=== PATIENT | male | born 1955 | race Caucasian/White ===

== ENCOUNTER 2017-03-08 17:03 | Inpatient (IN) ==
[2017-03-08 17:29] LABS: MANUAL DIFF NEEDED? NO
[2017-03-08 17:32] LABS: BASO% 0.4 % (0.0-0.8); EOS# 0.16 X1000 (0.0-0.7); EOS% 1.3 % (0.0-10.0); HEMATOCRIT 37.4 % (42.0-52.0); HEMOGLOBIN 12.1 g/dL (14.0-18.0); IMM GRAN# 0.04 X1000 (0.0-0.04); IMM GRAN% 0.3 % (0.0-0.5); LYMPH% 8.8 % (20.5-51.1); MCH 27.1 PG (27-31); MCHC 32.4 g/dL (33-37); MCV 83.9 FL (81-99); MONO# 0.89 X1000 (0.11-0.59); MONO% 7.1 % (1.7-9.3); MPV 11.5 FL (7.4-10.4); NEUT% 82.1 % (42.2-75.2); PLT 294 X1000 (130-400); RBC 4.46 XMIL (4.7-6.1)
[2017-03-08 17:39] LABS: INR 1.1; PROTIME 11.6 Seconds (9.2-11.7); PTT 29.7 Seconds (22.0-36.0)
--- NOTE | 2017-03-08 17:41 | PROVIDER DOCUMENTATION ---
HPI-General Adult - General Chief Complaint: Shortness of Breath Stated Complaint: SOB Time Seen by Provider: 03/08/17 17:27 Source: patient Allergies/Adverse Reactions: Patient Allergies Allergy/AdvReac Type Severity Reaction Status Date / Time No Known Allergies Allergy Verified 03/08/17 17:40 Home Medications: Home Medication List Medication Instructions Recorded Confirmed Last Taken Type Amiodarone [Cordarone] 1 tab PO DAILY 03/08/17 03/08/17 03/08/17 09:00 History Apixaban [Eliquis] 1 tab PO DAILY 03/08/17 03/08/17 03/08/17 09:00 History Aspirin [Ecotrin] 81 mg PO DAILY 03/08/17 03/08/17 03/08/17 09:00 History Carvedilol [Coreg] 1 tab PO BID 03/08/17 03/08/17 03/08/17 09:00 History Insulin Aspart Prot/Insuln Asp 03/08/17 Unknown History [Novolog Mix 70-30 Flexpen Syrn] Insulin Glargine [Lantus] 30 unit SUBQ DAILY 03/08/17 03/08/17 03/07/17 20:00 History Isosorbide Mononitrate E.r. [Imdur] 30 mg PO DAILY 03/08/17 03/08/17 03/08/17 09 :00 History Levothyroxine [Synthroid] 75 microgm PO DAILY 03/08/17 03/08/17 03/08/17 08:00 History Losartan Potassium [Cozaar] 25 mg PO DAILY 03/08/17 03/08/17 03/08/17 09:00 History Nitroglycerin [Nitrostat] 0.4 mg SL PRN PRN 03/08/17 03/08/17 Unknown History Pantoprazole [Protonix] 1 tab PO DAILY 03/08/17 03/08/17 03/08/17 09:00 History Sitagliptin Phosphate [Januvia] 100 mg PO DAILY 03/08/17 03/08/17 03/08/17 09: 00 History Torsemide 20 mg PO BID 03/08/17 03/08/17 03/08/17 09:00 History - History of Present Illness -Gen Adult Nature of Presenting Problems: Pt comes in with SOB over the last 3-4 days. He has CHF and COPD and has been having to sleep exclusively in his hospital bed. He feels like he has been wheezing but according to the EMS he was saturating well and during the ride he said he was feeling better . Review of Systems - Adult - REVIEW OF SYSTEMS - ADULT Constitutional: reports: no symptoms reported. denies: chills, fever, fatique, night sweats, weight gain Eyes: reports: no symptoms reported. denies: discharge, dry eyes, decreased vision, blurred vision, eye pain, redness Ears, Nose, Mouth & Throat: reports: no symptoms reported. denies: ear pain, epistaxis, sinus problem, nose pain, hoarseness, throat swelling Cardiovascular: reports: no symptoms reported. denies: chest pain, edema, orthopnea, palpitations, poor circulation, PND, syncope Respiratory: reports: see HPI, chronic cough, dyspnea on exertion, shortness of breath. denies: cough, excessive sputum production, hemoptysis, pleurisy Gastrointestinal: reports: no symptoms reported. denies: abdominal pain, hematemesis, constipation, diarrhea, difficulty swallowing, frequent heartburn, poor appetite, rectal bleeding, vomiting Genitourinary: reports: no symptoms reported. denies: dysuria, discharge, frequency, flank pain, hematuria, incontinence, urinary retention, urgency Musculoskeletal: reports: no symptoms reported. denies: bone pain, back pain, frequent leg cramps, joint pain, joint swelling, muscle weakness, neck pain Integumentary: reports: no symptoms reported. denies: hives, hair loss, itching , nail changes, rash, skin sores/ulcer, skin thickening Neurological: reports: no symptoms reported. denies: ataxia, dizziness/vertigo , headache/migraines, numbness, paresthesia, seizure, syncope, tremors Psychiatric: reports: no symptoms reported. denies: anxiety, anti-depressant use, alcohol/drug dependence, emotional problems, panic attacks, suicidal thoughts Endocrine: reports: no symptoms reported. denies: change in skin pigment, excessive sweating, cold intolerance, increased hunger, increased thirst Hematologic/Lymphatic: reports: no symptoms reported. denies: blood clots, easy bruising, prolonged bleeding, swollen lymph nodes, transfusions Allergic/Immunologic: reports: no symptoms reported. denies: allergic reactions , allergic rhinitis, asthma, eczema, frequent infections, hay fever, hives, positive PPD, urticaria All Other Systems: Reviewed and Negative Past History - Adult - PAST MEDICAL HISTORY-ADULT Review of Records: reports: Old Records Reviewed, Nursing Assessment Review, Medications Reviewed, Social history reviewed & non-contributory. Major Childhood Illnesses: reports: denies history Cardiovascular: reports: CAD, CHF, HTN, hyperlipidemia Respiratory: reports: sleep apnea Gastrointestinal: reports: GERD Obstetrical/Gynecological: reports: denies history Genitourinary: reports: denies history Musculoskeletal: reports: denies history Neurological: reports: denies history Endocrine/Immune: reports: Diabetes, thyroid disorder Other Conditions: reports: denies history - PRIOR SURGERIES/PROCEDURES Surgical/Procedure History: reports: CABG, tonsillectomy, other (vascular surgery bilateral legs) - IMMUNIZATION STATUS Childhood Immunizations: See Nurse Assessment Flu Vaccine: See Nurse Assessment - FAMILY HISTORY Family History: reviewed, not pertinent - SOCIAL HISTORY Smoking: quit greater than 1 year, cigarettes Substance Use: none/never Alcohol Use Frequency: never Living Situation: family Physical Exam-General - PHYSICAL EXAM-ADULT Initial Vital Signs Reviewed: Yes - CONSTITUTIONAL General Appearance: alert, no apparent distress - EYES Eyes: PERRL/EOMI, pink conjunctivae - HEAD, EARS, NOSE, MOUTH & THROAT HENMT: normocephalic/atraumatic, moist mucous membranes, normal ENT inspection - NECK Neck: non-tender, full range of motion - RESPIRATORY Respiratory: chest non-tender, lungs clear, no accessory muscle use, decreased breath sounds - CARDIOVASCULAR Cardiovascular: normal peripheral pulses, regular rate, rhythm, no gallop, no JVD, no murmur - GASTROINTESTINAL (ABDOMEN) Abdominal Exam: normal bowel sounds, non tender, soft - MUSCULOSKELETAL Back Exam: normal inspection Extremity: normal range of motion, non-tender, normal gait, no calf tenderness, pedal edema - SKIN Integumentary: normal color, normal turgor, warm/dry - NEUROLOGIC Neurologic: 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 nml as tested, grossly normal - PSYCHIATRIC Psych/Mental Status: normal mood/affect, normal thought content, normal thought process, oriented x 3 Progress - PLAN OF CARE/RESULTS Progress/Plan/Lab Results: Vital Signs - 8 hr 03/08/17 17:16 Temperature 97.7 F Pulse Rate 70 Respiratory Rate 20 Blood Pressure 133/63 O2 Sat by Pulse Oximetry 99 Orders Category Date Time Status Cardiac Monitoring DIRECTED Care 03/08/17 17:19 Active Saline Loc NOW Care 03/08/17 17:19 Active CHEST-2 VIEWS [RAD] Stat Exams 03/08/17 17:19 Ordered CBC WITH ELECTRONIC DIFF [HEME] Stat Lab 03/08/17 17:21 Ordered CK PROFILE [SP CHEM] Stat Lab 03/08/17 17:21 Ordered COMPREHENSIVE METABOLIC PANEL [CHEM] Stat Lab 03/08/17 17:21 Ordered D-DIMER [CHEM] Stat Lab 03/08/17 17:21 Ordered MAGNESIUM [CHEM] Stat Lab 03/08/17 17:21 Ordered PRO B-NATRIURETIC PEPTIDE Stat Lab 03/08/17 17:21 Ordered PROTIME WITH INR [COAG] Stat Lab 03/08/17 17:21 Ordered PTT [COAG] Stat Lab 03/08/17 17:21 Ordered TROPONIN T Stat Lab 03/08/17 17:21 Ordered EKG [EKG] Stat Ther 03/08/17 17:19 Ordered Result Diagrams: 03/08/17 17:14 03/08/17 17:14 - XRAY 1 XRAY Study: Chest XRAY Interpretation: right middle lobe infiltrate (hcb) Departure - Departure Date of Disposition Decision: 03/08/17 Time of Disposition Decision: 19:20 DIAGNOSIS: Shortness of breath Pneumonia Qualifiers: Pneumonia type: due to unspecified organism Laterality: right Lung location: middle lobe of lung Qualified Code(s): J18.1 - Lobar pneumonia, unspecified organism Disposition: ADMITTED INPATIENT 09 Certified Medical Emergency: Emergent Condition: Good Referrals and Follow-Ups: Manisha Peoples MD [Primary Care Provider] - - Critical Care Note This patient required my direct & personal management of CC.: No Attestation - Physician/ MARJAN Attestation Patient care was provided by Advanced Practice Provider:: Yes Advanced Practice Provider:: Thanh Garcia Advanced Practice Provider documentation review:: The Mid-level provider documentation, treatment plan and medical decision making was reviewed by the physician who agrees with all treatment and medical decision making by the MLP.
[2017-03-08 17:56] LABS: ALBUMIN 3.9 g/dL (3.5-5.0); CALCIUM 9.4 mg/dL (8.8-10.2); MAGNESIUM 2.4 mg/dL (1.5-2.7); POTASSIUM 5.7 mmol/L (3.5-5.1); TOTAL BILIRUBIN 0.52 mg/dL (0.20-1.00); TOTAL PROTEIN 7.3 g/dL (6.3-8.3)
--- NOTE | 2017-03-08 18:15 | Diag Imaging Result Doc PS360 ---
EXAM: CHEST-2 VIEWS HISTORY: CP TECHNIQUE: PA and lateral COMMENT: There is blunting of the post posterior costophrenic angles which may be slightly improved since 12/24/2016. There is atelectasis versus pneumonia present in the right middle lobe which was not the case on the previous study. The atelectasis previously present in the right lower lobe has improved. IMPRESSION: Atelectasis versus pneumonia right middle lobe. Electronically signed by Andres Max 03/08/2017 6:13 PM
[2017-03-08] MEDS ORDERED: ROCEPHIN 1 GM/NS 1 GM/50 ML IVPB IV ONE (18:23)
[2017-03-08] MEDS ORDERED: D50W SYRINGE IV ONE (18:28)
[2017-03-08] MEDS ORDERED: HUMULIN R IV ONE (18:28)
[2017-03-08] MEDS ORDERED: ALBUTEROL 0.5% INH CONC FOR HYPERKALEMIA INH ONE (18:29)
--- NOTE | 2017-03-08 21:30 | HISTORY AND PHYSICAL ---
PATIENT OF: Noe Peoples MD. REASON FOR ADMISSION: Shortness of breath for the last 4 days. HISTORY OF PRESENT ILLNESS: Mr. Darius Duong is a 62-year-old man with underlying ischemic cardiomyopathy, EF 30%, type 2 diabetes, atrial fibrillation, hypertension, hypothyroidism, and coronary artery disease. He comes in today complaining of progressively worsening shortness of breath for the last 4 days with associated orthopnea and PND. He denies any leg swelling or easy satiety. He denies any cough, fever, or chills. No chest pain or palpitations with this. He denies any change in his diet or use of any [id number] medications. On arrival to the ER, he was mildly hypoxic. He denies any change in his urinary habits, any gastrointestinal complaints. REVIEW OF SYSTEMS: Twelve system review is negative. Positive findings per HPI. Patient says when he noticed that his breathing was getting worse he doubled up on the dose of his diuretics without any significant relief. ALLERGIES: None. HOME MEDICATIONS: Amiodarone 200 mg daily, apixaban 5 mg daily, aspirin 81 mg daily, Coreg 12.5 mg b.i.d., he takes regular insulin per sliding scale, Lantus 30 units daily, Imdur 30 mg daily, levothyroxine 75 mcg daily, Cozaar 25 mg daily, nitroglycerin 0.4 p.r.n., Protonix 40 mg daily, sitagliptin 100 mg daily, torsemide 20 mg b.i.d. FAMILY HISTORY: Notable for the 1st degree relatives with coronary artery disease, type 2 diabetes. No cancer. SOCIAL HISTORY: Denies any smoking, drinking or illicit drugs. SURGICAL HISTORY: Tonsillectomy, CABG, aortobifemoral bypass, AICD placement, knuckle reconstructive surgery. PAST MEDICAL ISSUES: Kidney stones, peripheral artery disease. LABORATORY WORK: EKG was not reviewed by me. Pending at the time I saw him. Rest of other laboratory work, his chest film showed increased vascular markings bilaterally, blunting of the right costophrenic angle. Possible bilateral inferior infiltrates, worse on the right. White count 12,000, hemoglobin and hematocrit 12 and 37, platelets 294,000. Sodium was 134, potassium 5.7, bicarb 19, anion gap is 18, BUN is 51, creatinine is 1.8. His baseline creatinine is usually around 1.6, and BUN in the 40s. No major change there. Glucose 233, proBNP 2100, troponin 0.012 with CK of 78. D-dimer is 1.53. PT PTT normal. PHYSICAL EXAMINATION: VITAL SIGNS: Blood pressure is 142/60, heart rate 69, respirations 18, temperature is 97.7 degrees. He is 94% on room air. He is an overweight middle aged man who is in mild respiratory distress. He is alert and oriented x3 with normal mood and affect. HEENT: Head is normocephalic, atraumatic. Eyes IVY EOMI. He is anicteric, not pale. ENT and oropharyngeal exam grossly normal. No central cyanosis noted. NECK: Positive JVD and hepatojugular reflux. No bruit. No thyromegaly. CHEST: Decreased air entry in both lung hudson with scattered wheezes and bibasilar crepitations. CARDIOVASCULAR: First and second heart sounds heard. No gallops, murmurs, rubs. Rhythm is irregular. ABDOMEN: Protuberant, soft, nontender. No organomegaly. Bowel sounds are hypoactive. RECTAL: Deferred at this time. EXTREMITIES: The patient has 1+ pitting edema of both lower extremities. Diminished pulses in his lower extremities which are symmetrical compared to the distal pulses in the upper extremities. NEUROLOGIC: No focal deficits. SKIN: Intact. No breakdown lesions or erythema. MUSCULOSKELETAL: Grossly normal. ASSESSMENT: 1. Acute respiratory failure probably secondary to acute congestive heart failure exacerbation. Cannot rule out underlying pneumonia. 2. Acute systolic heart failure exacerbation. 3. Probable pneumonia. 4. Coronary artery disease. 5. Chronic kidney disease stage 3. 6. Type 2 diabetes with renal manifestations, uncontrolled. 7. Hyperkalemia, probably secondary to renal failure. Cannot rule out type 4 renal tubular acidosis. 8. Anemia of chronic inflammation. 9. Ischemic cardiomyopathy. EF 30%. 10. Reflux disease. 11. Hypothyroidism. 12. Atrial fibrillation. 13. Sleep apnea. 14. Peripheral arterial disease. PLAN: At this time, patient will be admitted for diuresis intravenously and give 2 doses of Lasix starting tonight and then resume torsemide tomorrow. Repeat chest film to see if there is any residual infiltrate. We will empirically start him on antibiotics pending the repeat chest film and the patient's clinical symptoms. Patient's D-dimer was elevated, but since he has per the Well's criteria, the patient has 2 other reasons for being hypoxemic and this makes it less likely. The patient's heart rate is not elevated. No antecedent risk factors. Also patient status has been on anticoagulation. DVT prophylaxis is not needed in this patient, already on Eliquis. Chronic kidney disease unchanged. Follow up chemistries in the morning to document resolution of hyperkalemia. The patient was given albuterol, insulin and he will be given Lasix. Hopefully this can correct this problem. And down the road patient will need to see a head of sales and marketing to manage his symptoms. cc: Vibha Fong MD
[2017-03-08] MEDS ORDERED: ZOFRAN IV PRN (21:54)
[2017-03-08] MEDS ORDERED: TYLENOL PO PRN (21:54)
[2017-03-08] MEDS ORDERED: NITROGLYCERIN SL PRN (21:54)
[2017-03-08 22:33] LABS: HEMOGLOBIN A1C 8.3 % (4.8-6.0)
[2017-03-08] MEDS: LASIX PO SCH (22:39)
[2017-03-08] MEDS: HUMALOG SUBQ SCH (22:39)
[2017-03-08] MEDS: ZITHROMAX PO SCH (22:39)
[2017-03-08] MEDS: COREG PO SCH (22:39)
[2017-03-08] MEDS: DUONEB (A & A) INH SCH ×2 (22:56→23:07)
[2017-03-09] MEDS: DUONEB (A & A) INH SCH ×4 (03:30→21:10)
[2017-03-09 05:08] LABS: MANUAL DIFF NEEDED? NO
--- NOTE | 2017-03-09 05:24 | EKG Report ---
Test Performed on : 03/08/2017 5:23:57 PM Test Reason : SOB Blood Pressure : / mmHG Vent. Rate : 071 BPM Atrial Rate : 075 BPM P-R Int : 000 ms QRS Dur : 104 ms QT Int : 452 ms P-R-T Axes : 000 011 177 degrees QTc Int : 491 ms Accelerated Junctional rhythm. Cannot rule out Inferior infarct , age undetermined ST \T\ T wave abnormality, consider lateral ischemia Abnormal ECG When compared with ECG of 08-MAR-2017 17:22, (Unconfirmed) ST no longer elevated in Lateral leads Confirmed by Earl SOLARES, Tan Briceño ([id number]) on 03/14/2017 8:25:20 AM
[2017-03-09 05:34] LABS: BASO% 0.3 % (0.0-0.8); EOS# 0.11 X1000 (0.0-0.7); HEMATOCRIT 35.8 % (42.0-52.0); HEMOGLOBIN 11.4 g/dL (14.0-18.0); IMM GRAN# 0.04 X1000 (0.0-0.04); IMM GRAN% 0.4 % (0.0-0.5); LYMPH# 1.07 X1000 (1.2-3.4); LYMPH% 9.5 % (20.5-51.1); MCHC 31.8 g/dL (33-37); MCV 84.6 FL (81-99); MONO# 0.69 X1000 (0.11-0.59); MONO% 6.1 % (1.7-9.3); MPV 11.4 FL (7.4-10.4); NEUT% 82.7 % (42.2-75.2); PLT 274 X1000 (130-400); RBC 4.23 XMIL (4.7-6.1)
[2017-03-09] MEDS: PROTONIX PO SCH (06:06)
[2017-03-09] MEDS: HUMALOG SUBQ SCH ×4 (06:06→20:24)
[2017-03-09 06:46] LABS: CALCIUM 9.1 mg/dL (8.8-10.2); POTASSIUM 3.9 mmol/L (3.5-5.1)
--- NOTE | 2017-03-09 09:08 | PROGRESS NOTE ---
DATE: 03/09/2017 Level 3 documentation. Reviewing the charts after admitted by hospitalist last night. SUBJECTIVE: Interval history was reviewed. Patient has an appointment to see me this afternoon. Complains of shortness of breath. No PND. No orthopnea. No swelling of the legs. The patient denies of any productive cough or fever. The symptoms started for the last 2 days. Came to the emergency room. Interval findings are reviewed. Past medical history, past surgical history, medicines were reviewed. PHYSICAL EXAMINATION: Vital Signs: Afebrile, pulse is 65, blood pressure is 125/58, 2 L nasal cannula 99%. Weight 200 pounds. Is and Os are -920 mL. HEENT Examination: Atraumatic, normocephalic. Pupils equal, react to light. Tongue is in midline. Neck: Supple. Chest: Bilateral air entry. No signs of pneumonitis. No crackles. Heart: Heart sounds are irregularly irregular. Abdomen: Belly is soft, nontender. Good bowel sounds. Obese. Extremities: No peripheral edema. No signs of gangrene noted. INVESTIGATIONS: clinical research monitor, in and out of atrial fibrillation. CBC: White cell count 11, hematocrit 35, platelets 274,000. D-dimer slightly positive. SMA 7: Sodium 140, potassium 3.9, chloride 100, BUN 44, creatinine 1.6, glucose 144, and calcium 9.1. Magnesium 2.4. LFTs were normal. Troponin is normal. ProBNP elevated at 2400. TSH is normal. Chest x-ray was reviewed by myself, possible right middle lobe atelectasis versus pneumonia. EKG: Junctional versus atrial fibrillation. ASSESSMENT AND PLAN: 1. Shortness of breath, right middle lobe atelectasis which is a new finding. Continue on intravenous antibiotics. Added incentive spirometry. 2. Ischemic cardiomyopathy. Coreg 12.5 by mouth twice a da, Lasix 60 mg by mouth 12, isosorbide 30 daily, Cozaar 25 daily. 3. Type 2 diabetes, on Lantus 30 units on sliding scale and Januvia. 4. Hypothyroidism, on Synthroid. 5. Gastrointestinal prophylaxis with Protonix. 6. Paroxysmal atrial fibrillation, on Cordarone. We will check the liver function tests, thyroid for surveillance. Add Eliquis 5 mg daily. 7. Chronic kidney disease, stable. We will repeat the labs in the morning. Discussed the findings with the patient. LEVEL OF DOCUMENTATION: 35 minutes. cc: Renzo Pepoles MD
--- NOTE | 2017-03-09 09:24 | Diag Imaging Result Doc PS360 ---
EXAM: CHEST-2 VIEWS INDICATION: Heart Failure TECHNIQUE: 2 views COMPARISON: 03/08/2017 FINDINGS: The right middle lobe infiltrate appears to have improved marginally. There is still blunting of the posterior costophrenic angles similar to the previous study. No new consolidations are appreciated. Cardiac silhouette is stable. IMPRESSION: Interval marginal improvement of infiltrate in the right middle lobe. Essentially stable, otherwise. Electronically signed by Matthew Shine 03/09/2017 9:22 AM
[2017-03-09] MEDS: LANTUS SUBQ SCH (09:49)
[2017-03-09] MEDS: SYNTHROID PO SCH (09:49)
[2017-03-09] MEDS: LASIX PO SCH (09:49)
[2017-03-09] MEDS: ASPIRIN EC PO SCH (09:49)
[2017-03-09] MEDS: ELIQUIS PO SCH (09:49)
[2017-03-09] MEDS: COREG PO SCH ×2 (09:49→20:24)
[2017-03-09] MEDS: COZAAR PO SCH (09:49)
[2017-03-09] MEDS: CORDARONE PO SCH (09:49)
[2017-03-09] MEDS: IMDUR PO SCH (09:52)
[2017-03-09] MEDS: ROCEPHIN 1 GM/NS 1 GM/50 ML IVPB IV SCH (17:01)
[2017-03-09] MEDS: ZITHROMAX PO SCH (20:24)
[2017-03-09] MEDS: DEMADEX PO SCH (20:24)
[2017-03-10] MEDS: DUONEB (A & A) INH SCH ×4 (03:35→21:45)
[2017-03-10 06:02] LABS: AGAP 16; ALBUMIN 3.2 g/dL (3.5-5.0); ALKALINE PHOSPHATASE 101 U/L (32-122); BUN 38 mg/dL (8-22); CALCIUM 8.7 mg/dL (8.8-10.2); CHLORIDE 103 mmol/L (98-107); COSMO 296; DIRECT BILIRUBIN < 0.20 mg/dL (0.00-0.20); GOT 13 U/L (10-34); GPT 16 U/L (10-44); POTASSIUM 3.8 mmol/L (3.5-5.1); SODIUM 142 mmol/L (136-145); TCO2 23 mmol/L (25-35); TOTAL BILIRUBIN 0.32 mg/dL (0.20-1.00); TOTAL PROTEIN 6.4 g/dL (6.3-8.3)
[2017-03-10] MEDS: PROTONIX PO SCH (06:09)
[2017-03-10] MEDS: HUMALOG SUBQ SCH ×4 (06:10→20:30)
[2017-03-10 06:12] LABS: FREE T4 1.53 ng/dL (0.93-1.70); HEMOGLOBIN A1C 8.1 % (4.8-6.0)
[2017-03-10] MEDS: COZAAR PO SCH (09:14)
[2017-03-10] MEDS: DEMADEX PO SCH ×2 (09:14→20:30)
[2017-03-10] MEDS: CORDARONE PO SCH (09:14)
[2017-03-10] MEDS: ELIQUIS PO SCH (09:15)
[2017-03-10] MEDS: SYNTHROID PO SCH (09:15)
[2017-03-10] MEDS: IMDUR PO SCH (09:15)
[2017-03-10] MEDS: COREG PO SCH ×2 (09:15→20:30)
[2017-03-10] MEDS: LANTUS SUBQ SCH (09:15)
[2017-03-10] MEDS: ASPIRIN EC PO SCH (09:15)
--- NOTE | 2017-03-10 09:21 | PROGRESS NOTE ---
DATE: 03/10/2017 SUBJECTIVE: Patient complains of shortness of breath last night. He is on oxygen. He is nonambulatory at this time. He denies of any fever, productive cough. I did review the x-ray showing some right middle lobe atelectasis versus mucous plugging on the lateral view. He has some wheezing. He is on bronchodilators. Rest of the review of systems are normal. OBJECTIVE: Vital Signs: On examination, he is afebrile. Vitals are stable. Weight 200 pounds. Input and output are -1200. HEENT: Exam within normal limits. Neck: Supple. Chest: Bilateral air entry. Some rhonchi and wheezing on the right side. Heart: Sounds are regular. Belly is soft, nontender. No peripheral edema. INVESTIGATIONS: On campus monitor, he is in sinus with first-degree AV block. SMA 7: Sodium 142, potassium 3.8, chloride 103, BUN 38, creatinine 1.5. LFTs were normal. White cell count 11. ASSESSMENT AND PLAN: 1. Right middle lobe atelectasis versus infiltrate. Continue on incentive spirometry, Zithromax and IV Rocephin. 2. Paroxysmal atrial fibrillation. Currently in sinus. On Cordarone. Follow up on surveillance is stable and with normal liver function tests and thyroid function tests. 3. Diabetes is controlled, 4. Plan of care: Incentive spirometry evaluation for home oxygen with a room air pulse oximetry on exertion. If he is stable, he will be discharged in the morning. LEVEL OF DOCUMENTATION: Twenty-five minutes. cc: Renzo Peoples MD
[2017-03-10] MEDS: ROCEPHIN 1 GM/NS 1 GM/50 ML IVPB IV SCH (17:28)
[2017-03-10] MEDS: ZITHROMAX PO SCH (20:30)
[2017-03-11] MEDS: DUONEB (A & A) INH SCH ×4 (03:32→21:13)
[2017-03-11] MEDS: HUMALOG SUBQ SCH ×4 (06:16→20:36)
[2017-03-11] MEDS: PROTONIX PO SCH (06:16)
[2017-03-11] MEDS: ELIQUIS PO SCH ×2 (08:46→20:37)
[2017-03-11] MEDS: IMDUR PO SCH (08:46)
[2017-03-11] MEDS: COZAAR PO SCH (08:46)
[2017-03-11] MEDS: DEMADEX PO SCH (08:46)
[2017-03-11] MEDS: COREG PO SCH ×2 (08:46→20:37)
[2017-03-11] MEDS: SYNTHROID PO SCH (08:46)
[2017-03-11] MEDS: CORDARONE PO SCH (08:47)
[2017-03-11] MEDS: ASPIRIN EC PO SCH (08:47)
[2017-03-11] MEDS: LANTUS SUBQ SCH (08:47)
--- NOTE | 2017-03-11 11:31 | Diag Imaging Result Doc PS360 ---
EXAM: CHEST-2 VIEWS HISTORY: SOB TECHNIQUE: COMPARISON: 03/09/2017 FINDINGS: Sternal wires are present and there is a left-sided pacemaker. The heart is not enlarged. There are small pleural effusions similar to the prior exam. Mild central vascular distention. This is similar to the prior study. No consolidation. IMPRESSION: Stable chest Electronically signed by Kuldip Talley 03/11/2017 11:28 AM
--- NOTE | 2017-03-11 12:31 | CONSULTATION ---
DATE OF CONSULTATION: 03/11/2017 REASON FOR CONSULTATION: Cardiology was consulted for heart failure. HISTORY OF PRESENT ILLNESS: Mr. Juan J Duong is a 62-year-old gentleman with known coronary artery disease, coronary artery bypass grafting, and LV dysfunction. For the last week or so, he has been having increasing shortness of breath with paroxysmal nocturnal dyspnea. Denies chest pain suggestive of angina. He was admitted and has received IV Lasix. He was in [facility] and underwent an AICD placement about 4-5 weeks back, has atrial fibrillation, and ablation is contemplated down the line by Dr. Nelson in Electrophysiology in [place]. There are no palpitations. There is no syncope. He is also attending the Heart Failure Clinic in [facility]. REVIEW OF SYSTEMS: A 14-point review of systems was done.Gastrointestinal: There is no history of nausea, vomiting, or diarrhea. There is no history of hemoptysis or melena. Central nervous system: No focal weakness to suggest a CVA or TIA. Genitourinary: There is no dysuria or hematuria. PAST MEDICAL HISTORY: 1. Congestive heart failure. 2. Atrial fibrillation. 3. AICD placement. 4. Hypertension. 5. Diabetes. 6. Coronary artery disease, status post coronary artery bypass grafting x2. He underwent coronary artery bypass grafting in 2000 and subsequently in 2000 he had YOUNG to the left anterior descending artery, saphenous vein graft to diagonal, saphenous vein graft to OM, and vein graft to PDA. In 2010, he had a repeat bypass with a vein graft to the PDA and vein graft to the obtuse marginal artery. 7. Tonsillectomy. 8. Orthopedic surgery. CURRENT MEDICATIONS: Aspirin 81 mg a day. Protonix 40. Levothyroxine 75. Januvia 100. Losartan 25. Isosorbide 30. Coreg 12.5 b.i.d. Eliquis 5 p.o. b.i.d. Insulin 30 units subcutaneously daily. Torsemide 20 b.i.d. Amiodarone 200. ALLERGIES: He is not known to be allergic to any medication. SOCIAL HISTORY: He does not smoke. There is no history of alcohol abuse. PHYSICAL EXAMINATION: Vital Signs: Blood pressure 104/44. Cardiovascular: Normal jugular venous pressure. First and second heart sounds heard. There was no S3 gallop. Respiratory System: Fine inspiratory bibasilar crepitations. Abdomen: Obese soft, nontender. There was no guarding or rigidity. Bowel sounds were heard. Central nervous system: Alert, oriented, and was moving all 4 extremities. Extremities: Examination of extremities revealed no pedal edema. ASSESSMENT AND PLAN: Mr. Juan J Duong is a 62-year-old gentleman with history of coronary artery bypass grafting x2, chronic atrial fibrillation status post AICD placement, diabetes, and hypertension, who was seen today, admitted with increasing shortness of breath, orthopnea, and paroxysmal nocturnal dyspnea. Patient is in heart failure. RECOMMENDATIONS: 1. We will change him to IV Lasix. Hold his torsemide. Lasix 40 mg twice a day. 2. Continue with his medications for diabetes. 3. He has had an AICD placement. 4. He has chronic atrial fibrillation. Ablation is contemplated down the line at [place]. In the interim, we will continue with his Eliquis and he is on amiodarone. I have not made any changes. 5. As far as his heart failure medications are concerned, he has left ventricular dysfunction, ejection fraction of 30% to 35%. We will put him on Entresto one tablet twice a day. Discontinue the Cozaar. In the past, he was on Entresto, which was discontinued when he was recently discharged. No known allergies to that medication. 6. We will also get a chest x-ray and a BMP in the morning, as planned. Thank you for the consult. We will follow hospital course. cc: MD Renzo Hayes MD
--- NOTE | 2017-03-11 12:42 | PROGRESS NOTE ---
DATE: 03/11/2017 Mr. Duong is admitted with uncontrolled diabetes. His blood sugar was 284. Blood cultures were negative. He has chronic atrial fibrillation and congestive heart failure. Last night he was short of breath. He has some nasal congestion. I am going to order blood tests as well as EKG and chest x-ray. We will also get a Cardiology consultation. He is usually followed by Dr. Luna. -8 cc: MD Renzo Albarran MD
[2017-03-11] MEDS: ROCEPHIN 1 GM/NS 1 GM/50 ML IVPB IV SCH (18:34)
[2017-03-11] MEDS: LASIX IV SCH (20:37)
[2017-03-11] MEDS: ENTRESTO 24 MG-26 MG TABLET PO SCH (20:37)
[2017-03-12] MEDS: DUONEB (A & A) INH SCH ×4 (03:03→21:44)
[2017-03-12 06:17] LABS: CALCIUM 8.8 mg/dL (8.8-10.2); POTASSIUM 3.7 mmol/L (3.5-5.1)
[2017-03-12] MEDS: PROTONIX PO SCH (06:31)
[2017-03-12] MEDS: HUMALOG SUBQ SCH ×4 (06:31→21:34)
[2017-03-12] MEDS: LASIX IV SCH ×2 (09:04→21:34)
[2017-03-12] MEDS: ASPIRIN EC PO SCH (09:05)
[2017-03-12] MEDS: IMDUR PO SCH (09:05)
[2017-03-12] MEDS: CORDARONE PO SCH (09:05)
[2017-03-12] MEDS: SYNTHROID PO SCH (09:05)
[2017-03-12] MEDS: LANTUS SUBQ SCH (09:05)
[2017-03-12] MEDS: COREG PO SCH ×2 (09:05→21:34)
[2017-03-12] MEDS: ENTRESTO 24 MG-26 MG TABLET PO SCH ×2 (09:05→21:34)
[2017-03-12] MEDS: ELIQUIS PO SCH ×2 (09:49→21:34)
--- NOTE | 2017-03-12 10:31 | Diag Imaging Result Doc PS360 ---
EXAM: CHEST-2 VIEWS HISTORY: hypoxia TECHNIQUE: COMPARISON: 03/11/2017 FINDINGS: There are sternal wires and a left-sided pacemaker. The lungs are well expanded. Heart is not enlarged. Mild central vascular prominence. This is questionably slightly less pronounced than on the prior exam. Tiny pleural effusions blunt the posterior gutters. No consolidation. IMPRESSION: Stable chest Electronically signed by Kuldip Talley 03/12/2017 10:29 AM
[2017-03-12] MEDS ORDERED: LASIX IV ONE (10:32)
[2017-03-12] MEDS ORDERED: LASIX IV SCH (11:00)
--- NOTE | 2017-03-12 11:31 | PROGRESS NOTE ---
DATE: 03/12/2017 Mr. Duong is still not feeling well. He still is short of breath. He says the Lasix is not helping him as much as he expected. He is getting IV Lasix now and he is getting 40 mg twice a day which should be helping him. Add Aldactazide today. Repeat the electrolytes in the morning. -6 cc: MD Renzo Albarran MD
[2017-03-12] MEDS: ALDACTAZIDE 25/25 PO SCH (12:35)
[2017-03-12] MEDS: ROCEPHIN 1 GM/NS 1 GM/50 ML IVPB IV SCH (18:31)
[2017-03-13 05:48] LABS: POTASSIUM 3.7 mmol/L (3.5-5.1)
--- NOTE | 2017-03-13 05:48 | EKG Report ---
Test Performed on : 03/11/2017 11:54:43 AM Test Reason : CP Blood Pressure : / mmHG Vent. Rate : 069 BPM Atrial Rate : 069 BPM P-R Int : 324 ms QRS Dur : 136 ms QT Int : 462 ms P-R-T Axes : 069 046 181 degrees QTc Int : 495 ms Sinus rhythm. with 1st degree AV block. Nonspecific intraventricular block T wave abnormality, consider lateral ischemia Abnormal ECG When compared with ECG of 08-MAR-2017 17:23, Sinus rhythm. has replaced Junctional rhythm. QRS duration has increased Inverted T waves have replaced nonspecific T wave abnormality in Lateral leads Confirmed by Earl SOLARES, Tan Briceño ([id number]) on 03/14/2017 8:26:03 AM
[2017-03-13] MEDS: PROTONIX PO SCH (06:25)
[2017-03-13] MEDS: HUMALOG SUBQ SCH ×4 (06:26→20:12)
[2017-03-13] MEDS: DUONEB (A & A) INH SCH ×4 (09:00→22:39)
[2017-03-13] MEDS: CORDARONE PO SCH (09:05)
[2017-03-13] MEDS: ELIQUIS PO SCH ×2 (09:05→20:12)
[2017-03-13] MEDS: COREG PO SCH ×2 (09:05→20:12)
[2017-03-13] MEDS: ENTRESTO 24 MG-26 MG TABLET PO SCH ×2 (09:05→20:12)
[2017-03-13] MEDS: SYNTHROID PO SCH (09:05)
[2017-03-13] MEDS: IMDUR PO SCH (09:05)
[2017-03-13] MEDS: ALDACTAZIDE 25/25 PO SCH (09:05)
[2017-03-13] MEDS: LANTUS SUBQ SCH (09:05)
[2017-03-13] MEDS: ASPIRIN EC PO SCH (09:05)
[2017-03-13] MEDS: LASIX IV SCH (09:10)
--- NOTE | 2017-03-13 09:47 | PROGRESS NOTE ---
DATE: 03/13/2017 SUBJECTIVE: Apparently interval history was reviewed. Continues with shortness of breath at rest, even minimal exertion. Patient was seen by Dr. Luna. He was given extra IV Lasix twice a day. Changed the Cozaar to Entresto. Blood pressure is running low. In the past he was unable to tolerate due to low blood pressure. Complains of dyspnea. No chest pain. No palpitations. REVIEW OF SYSTEMS: No GI symptoms. No symptoms. No swelling of feet. PAST MEDICAL HISTORY: Reviewed. PAST SURGICAL HISTORY: Reviewed. MEDICATIONS: Reviewed. PHYSICAL EXAMINATION: Vital signs: Afebrile at 97.5, pulse is 67, blood pressure 120/45. Weight 216 pounds. I's and O's -1.6, almost 4 L out. HEENT: Within normal limits. Neck: Supple. JVD is not elevated. Chest: Clear. Heart: Sounds are regular. No murmur. Abdomen: Belly is soft, obese, nontender. Good bowel sounds. Extremities: No peripheral edema or cyanosis. Neurologic: No obvious neurological deficits. INVESTIGATIONS: Sodium 139, potassium 3.7, BUN 34, creatinine 1.8, glucose 221. Cardiac enzymes are normal. Chest x-ray was improving. ASSESSMENT AND PLAN: 1. Shortness of breath. Follow up chest x-ray. Right middle lobe atelectasis improving. 2. Ischemic cardiomyopathy. EF 30%. Optimize the treatment with Entresto and Lasix. I am afraid he is going to get azotemia and low blood pressure. 3. The patient will qualify for home oxygen, 88% on exertion. 4. Paroxysmal atrial fibrillation. Currently in sinus on Cordarone and Eliquis. Waiting for ablation. PLAN: Plan of care today is orthostatic blood pressure and decrease IV Lasix once a day. Will discuss with the salesforce trainer. LEVEL OF DOCUMENTATION: 25 minute. cc: Renzo Peoples MD MTDD
[2017-03-13] MEDS: ROCEPHIN 1 GM/NS 1 GM/50 ML IVPB IV SCH (18:09)
[2017-03-14] MEDS: DUONEB (A & A) INH SCH ×3 (02:43→11:09)
[2017-03-14 04:59] LABS: MANUAL DIFF NEEDED? NO
[2017-03-14 05:05] LABS: BASO% 0.4 % (0.0-0.8); EOS# 0.19 X1000 (0.0-0.7); HEMATOCRIT 33.8 % (42.0-52.0); HEMOGLOBIN 10.8 g/dL (14.0-18.0); LYMPH# 1.23 X1000 (1.2-3.4); LYMPH% 12.9 % (20.5-51.1); MCH 26.7 PG (27-31); MCV 83.7 FL (81-99); MONO# 0.74 X1000 (0.11-0.59); MONO% 7.8 % (1.7-9.3); MPV 10.9 FL (7.4-10.4); NEUT% 76.9 % (42.2-75.2); PLT 273 X1000 (130-400); RBC 4.04 XMIL (4.7-6.1)
[2017-03-14 05:41] LABS: ALBUMIN 3.7 g/dL (3.5-5.0); CALCIUM 9.1 mg/dL (8.8-10.2); POTASSIUM 3.9 mmol/L (3.5-5.1); TOTAL BILIRUBIN 0.32 mg/dL (0.20-1.00); TOTAL PROTEIN 7.2 g/dL (6.3-8.3)
[2017-03-14] MEDS: HUMALOG SUBQ SCH ×2 (06:10→11:13)
[2017-03-14] MEDS: PROTONIX PO SCH (06:10)
[2017-03-14] MEDS ORDERED: INSULIN PEN NEEDLES ONE (07:51)
[2017-03-14] MEDS: IMDUR PO SCH (08:07)
[2017-03-14] MEDS: SYNTHROID PO SCH (08:07)
[2017-03-14] MEDS: ENTRESTO 24 MG-26 MG TABLET PO SCH (08:08)
[2017-03-14] MEDS: CORDARONE PO SCH (08:08)
[2017-03-14] MEDS: ALDACTAZIDE 25/25 PO SCH (08:08)
[2017-03-14] MEDS: LASIX IV SCH (08:08)
[2017-03-14] MEDS: ELIQUIS PO SCH (08:08)
[2017-03-14] MEDS: COREG PO SCH (08:08)
[2017-03-14] MEDS: ASPIRIN EC PO SCH (08:08)
[2017-03-14] MEDS: LANTUS SUBQ SCH (08:08)
[2017-03-14 12:34] VITALS: BP 94/46
--- NOTE | 2017-03-14 18:24 | DISCHARGE SUMMARY ---
ADMISSION DATE: 03/08/2017 DISCHARGE DATE: 03/14/2017 DISCHARGING DIAGNOSES: Shortness of breath due to combination of right middle lobe atelectasis and decompensated ischemic cardiomyopathy with systolic heart failure. Ejection fraction 30%. SECONDARY DIAGNOSES: 1. Paroxysmal atrial fibrillation. 2. Coronary artery disease status post bypass surgery x2. 3. Complicated diabetes. 4. Acid reflux disease. 5. Hypothyroidism. 6. Nonsustained ventricular tachycardia status post AICD by Dr. Nelson. 7. Peripheral arterial disease with status post aortobifemoral bypass surgery. 8. History of kidney stones. 9. History of right humeral fracture. CONSULTS: Technician Terminal And Repeater Dr. Luna. BRIEF HISTORY: Please see the H and P that was done by Dr. Fong. In brief he is a 61-year- old white gentleman with above problems admitted to the hospital basically for shortness of breath, even with minimal exertion. Chest x-ray showed new onset of a right middle lobe atelectasis versus pneumonia. HOSPITAL COURSE: He was given oxygen, incentive spirometry, IV antibiotics. Follow up chest x- ray, improved right middle lobe atelectasis. Decompensated heart failure. Elevated proBNP. Seen by Dr. Luna and he was given IV Lasix and discontinued Cozaar, started on Entresto. He was not able to tolerate Entresto in the past due to hypotension and azotemia. We will slowly increase the Entresto as an outpatient. He is also waiting for the BP study for intermittent atrial fibrillation by Dr. Nelson. Rest of the hospital course was uneventful and at the time of discharge, with minimal exertion pulse oximetry 88%. Arrangements were made for outpatient oxygen therapy. LABORATORIES: CBC: White cell count 9.5, hematocrit 33, platelets 273,000. SMA 7: Sodium 136, potassium 3.9, chloride 98, BUN 38, creatinine 1.6, glucose 275. Cardiac enzymes were normal. ProBNP 1670. A1c 8.1. Thyroid function tests were normal. DISCHARGE INSTRUCTIONS: Flu vaccine 2013. Pneumococcal vaccine 2015. Aspirin 81 mg daily. Protonix 40 daily. Synthroid 75 mcg daily. Januvia 100 daily. Isosorbide 30 mg daily. Coreg 12.5 p.o. b.i.d. Eliquis 1 tablet 5 mg b.i.d. Lantus 30 units subcutaneous daily. Nitrostat as needed. Demadex 20 p.o. once daily. Aldactazide 25/25 daily. Entresto 24/26 one tablet daily. Cordarone 200 daily. Follow up in my office in 10 days. cc: MD Alli Mohamud MD
== END 2017-03-14 13:40 | disposition home or self-care (01) ==
LOC: ED 17:03 → 3S 21:28 → SUATTDRO 21:28
PROVIDERS: ADMIT Internal Medicine; ATTEND Internal Medicine

== ENCOUNTER 2017-06-08 21:36 | Inpatient (IN) ==
[2017-06-08] MEDS ORDERED: ASPIRIN PO STA (21:46)
--- NOTE | 2017-06-08 22:06 | Diag Imaging Result Doc PS360 ---
EXAM: CHEST-1 VIEW HISTORY: CP TECHNIQUE: Erect AP portable at 2200 COMMENT: There is cardiomegaly. There are sternotomy wires. There may be mild interstitial pulmonary edema. This appears somewhat worse than on 03/12/2017. IMPRESSION: Cardiomegaly and mild pulmonary edema. Electronically signed by Andres Max 06/08/2017 10:04 PM
[2017-06-08 22:16] LABS: BASO% 0.3 % (0.0-0.8); EOS# 0.09 X1000 (0.0-0.7); EOS% 0.7 % (0.0-10.0); HEMATOCRIT 36.6 % (42.0-52.0); HEMOGLOBIN 11.2 g/dL (14.0-18.0); IMM GRAN# 0.03 X1000 (0.0-0.04); IMM GRAN% 0.2 % (0.0-0.5); LYMPH# 0.72 X1000 (1.2-3.4); MANUAL DIFF NEEDED? NO; MCH 24.8 PG (27-31); MCHC 30.6 g/dL (33-37); MCV 81.2 FL (81-99); MONO# 0.68 X1000 (0.11-0.59); MONO% 5.6 % (1.7-9.3); MPV 11.6 FL (7.4-10.4); NEUT% 87.2 % (42.2-75.2); PLT 316 X1000 (130-400); RBC 4.51 XMIL (4.7-6.1)
[2017-06-08 22:21] LABS: INR 1.09; PROTIME 11.5 Seconds (9.2-11.7); PTT 30.1 Seconds (22.0-36.0)
[2017-06-08 22:27] LABS: ALBUMIN 4.1 g/dL (3.5-5.0); CALCIUM 9.4 mg/dL (8.8-10.2); MAGNESIUM 2.3 mg/dL (1.5-2.7); POTASSIUM 4.6 mmol/L (3.5-5.1); TOTAL BILIRUBIN 0.56 mg/dL (0.20-1.00); TOTAL PROTEIN 8.1 g/dL (6.3-8.3)
[2017-06-08] MEDS ORDERED: LASIX IV ONE ×2 (23:50→23:52)
[2017-06-09] MEDS ORDERED: LASIX IV ONE (03:05)
[2017-06-09] MEDS ORDERED: ZAROXOLYN PO ONE (04:57)
[2017-06-09] MEDS ORDERED: TYLENOL PO PRN (06:06)
[2017-06-09] MEDS: SYNTHROID PO SCH (06:59)
[2017-06-09] MEDS: HUMALOG SUBQ SCH ×4 (06:59→20:54)
[2017-06-09] MEDS: PRILOSEC PO SCH (06:59)
[2017-06-09] MEDS ORDERED: COREG PO SCH (09:00)
[2017-06-09] MEDS ORDERED: LANTUS SUBQ SCH (09:00)
[2017-06-09] MEDS ORDERED: INSULIN PEN NEEDLES ONE (09:09)
[2017-06-09] MEDS: CORDARONE PO SCH (09:26)
[2017-06-09] MEDS: ENTRESTO 24 MG-26 MG TABLET PO SCH (09:26)
[2017-06-09] MEDS: IMDUR PO SCH (09:26)
[2017-06-09] MEDS: ELIQUIS PO SCH ×2 (09:26→20:56)
[2017-06-09] MEDS: ASPIRIN EC PO SCH (09:26)
[2017-06-09 15:22] LABS: POTASSIUM 3.8 mmol/L (3.5-5.1)
[2017-06-09] MEDS: LANTUS SUBQ SCH (20:55)
[2017-06-09] MEDS: COREG PO SCH (20:56)
[2017-06-09] MEDS: LASIX IV SCH (20:56)
[2017-06-09 22:50] LABS: CK INDEX 1.6 (0.0-2.5); CK-MB 3.39 ng/mL (0.0-5.0)
[2017-06-10 05:18] LABS: MANUAL DIFF NEEDED? NO
[2017-06-10 05:31] LABS: BASO% 0.5 % (0.0-0.8); EOS# 0.14 X1000 (0.0-0.7); EOS% 1.7 % (0.0-10.0); HEMATOCRIT 37.1 % (42.0-52.0); HEMOGLOBIN 11.3 g/dL (14.0-18.0); IMM GRAN# 0.02 X1000 (0.0-0.04); IMM GRAN% 0.2 % (0.0-0.5); LYMPH# 0.87 X1000 (1.2-3.4); LYMPH% 10.4 % (20.5-51.1); MCH 24.5 PG (27-31); MCHC 30.5 g/dL (33-37); MCV 80.3 FL (81-99); MONO# 0.64 X1000 (0.11-0.59); MONO% 7.6 % (1.7-9.3); MPV 11.1 FL (7.4-10.4); NEUT% 79.6 % (42.2-75.2); PLT 299 X1000 (130-400); RBC 4.62 XMIL (4.7-6.1)
[2017-06-10 05:45] LABS: CALCIUM 9.9 mg/dL (8.8-10.2); MAGNESIUM 2.3 mg/dL (1.5-2.7); POTASSIUM 3.2 mmol/L (3.5-5.1)
[2017-06-10] MEDS: PRILOSEC PO SCH (06:15)
[2017-06-10] MEDS: HUMALOG SUBQ SCH ×4 (06:15→20:00)
[2017-06-10] MEDS: SYNTHROID PO SCH (06:16)
[2017-06-10] MEDS: COREG PO SCH ×2 (08:06→20:00)
[2017-06-10] MEDS: IMDUR PO SCH (08:06)
[2017-06-10] MEDS: LASIX IV SCH (08:06)
[2017-06-10] MEDS: ENTRESTO 24 MG-26 MG TABLET PO SCH (08:06)
[2017-06-10] MEDS: ELIQUIS PO SCH ×2 (08:06→20:00)
[2017-06-10] MEDS: CORDARONE PO SCH (08:06)
[2017-06-10] MEDS: ASPIRIN EC PO SCH (08:06)
--- NOTE | 2017-06-10 08:54 | Diag Imaging Result Doc PS360 ---
CHEST-2 VIEWS - 06/10/2017 INDICATION: hypoxia TECHNIQUE: COMPARISON: 06/08/2017 FINDINGS: Stable CABG changes. Stable pacemaker. Cardiomegaly and pulmonary vascular congestion is improved. These are now essentially normal. No focal infiltrates, pneumothorax, or pleural effusion. IMPRESSION: No acute disease. Electronically signed by Rogelio Sheth 06/10/2017 8:52 AM
[2017-06-10] MEDS: LANTUS SUBQ SCH (20:03)
[2017-06-11 05:44] LABS: CALCIUM 8.6 mg/dL (8.8-10.2); POTASSIUM 3.6 mmol/L (3.5-5.1)
[2017-06-11] MEDS: PRILOSEC PO SCH ×2 (05:57→07:05)
[2017-06-11] MEDS: HUMALOG SUBQ SCH ×5 (05:58→20:28)
[2017-06-11] MEDS: SYNTHROID PO SCH ×2 (05:58→07:05)
[2017-06-11] MEDS ORDERED: LASIX IV SCH (09:00)
[2017-06-11] MEDS: CORDARONE PO SCH (09:24)
[2017-06-11] MEDS: ENTRESTO 24 MG-26 MG TABLET PO SCH (09:24)
[2017-06-11] MEDS: COREG PO SCH ×2 (09:24→20:26)
[2017-06-11] MEDS: ELIQUIS PO SCH ×2 (09:25→20:27)
[2017-06-11] MEDS: ASPIRIN EC PO SCH (09:25)
[2017-06-11] MEDS: IMDUR PO SCH (09:25)
[2017-06-11] MEDS: ZOFRAN IV PRN (10:42)
[2017-06-11] MEDS: LANTUS SUBQ SCH (20:29)
[2017-06-12] MEDS: SYNTHROID PO SCH ×2 (05:48→06:06)
[2017-06-12] MEDS: PRILOSEC PO SCH ×2 (05:48→06:06)
[2017-06-12] MEDS: HUMALOG SUBQ SCH ×3 (05:49→11:44)
[2017-06-12] MEDS: COREG PO SCH (08:10)
[2017-06-12] MEDS: ELIQUIS PO SCH (08:10)
[2017-06-12] MEDS: ENTRESTO 24 MG-26 MG TABLET PO SCH (08:10)
[2017-06-12] MEDS: ZOFRAN IV PRN (08:10)
[2017-06-12] MEDS: IMDUR PO SCH (08:10)
[2017-06-12] MEDS: ASPIRIN EC PO SCH (08:10)
[2017-06-12] MEDS: CORDARONE PO SCH (08:10)
[2017-06-12 11:49] VITALS: BP 125/61
== END 2017-06-12 12:15 | disposition home or self-care (01) ==
LOC: ED 21:36 → 4N 06-09 05:39 → SUATTDRO 06-09 05:39 → 3S 06-09 13:46
PROVIDERS: ADMIT Internal Medicine; ATTEND Internal Medicine

== ENCOUNTER 2019-03-30 03:04 | Inpatient (IN) ==
[2019-03-30] MEDS ORDERED: ASPIRIN PO ONE (03:24)
[2019-03-30] MEDS ORDERED: NITROGLYCERIN TOP ONE (03:25)
--- NOTE | 2019-03-30 03:32 | PROVIDER DOCUMENTATION ---
HPI-Chest Pain - General Chief Complaint: Chest Pain Stated Complaint: cp Time Seen by Provider: 03/30/19 03:16 Source: patient Allergies/Adverse Reactions: Patient Allergies Allergy/AdvReac Type Severity Reaction Status Date / Time No Known Allergies Allergy Verified 06/09/17 01:37 Home Medications: Home Medication List Medication Instructions Recorded Confirmed Last Taken Type Amiodarone [Cordarone] 1 tab PO DAILY 03/08/17 03/30/19 06/08/17 07:00 History Aspirin [Ecotrin] 81 mg PO DAILY 03/08/17 03/30/19 06/08/17 07:00 History Carvedilol [Coreg] 0.5 tab PO BID 03/08/17 03/30/19 06/08/17 07:00 History Levothyroxine [Synthroid] 75 microgm PO DAILY 03/08/17 03/30/19 06/08/17 07:00 History Pantoprazole [Protonix] 1 tab PO DAILY 03/08/17 03/30/19 06/08/17 07:00 History Nitroglycerin [Nitrostat] 0.4 mg SL DIRECTED #30 tab.subl 06/12/17 03/30/19 Unknown Rx Apixaban [Eliquis] 5 mg PO BID 01/01/18 03/30/19 Unknown History Atorvastatin Calcium [Lipitor] 80 mg PO DAILY 01/01/18 03/30/19 Unknown History Bumetanide [Bumex] 1 mg PO BID 01/01/18 03/30/19 Unknown History Furosemide [Lasix] 40 mg PO BID 01/01/18 03/30/19 Unknown History Potassium Chloride [Klor-Con 10] 10 meq PO TID 01/01/18 03/30/19 Unknown History Atorvastatin Calcium [Lipitor] 80 mg PO QAM 03/30/19 03/30/19 Unknown History Insulin Aspart [Novolog Flexpen] See Protocol 03/30/19 Unknown History Insulin Degludec [Tresiba See Protocol 03/30/19 Unknown History Flextouch U-100] Isosorbide Mononitrate E.r. [Imdur] 30 mg PO QAM 03/30/19 03/30/19 Unknown History Metolazone 2.5 mg PO Q72H 03/30/19 03/30/19 Unknown History Sacubitril/Valsartan [Entresto 24 24 - 26 mg PO BID 03/30/19 03/30/19 Unknown History mg-26 mg Tablet] Sitagliptin [Januvia] 50 mg PO QAM 03/30/19 03/30/19 Unknown History - History of Present Illness-CP Nature of Presenting Problem: awakened ~ 1hr ago by SOB, achy L CP. CP did not radiate, nothing made worse, was totally relieved with Nitro. Takes daily ASA. No N/V, no diaphoresis. Has had CABGx2. Agricultural And Forestry Supervisor is Dr Luna Chest Pain Radiation: reports: no radiation Quality of Pain: reports: aching Timing: gone now Context/Activities at Onset: reports: sleep Associated Symptoms: reports: shortness of breath Nitro Today/Relief: provided at home Aspirin Treatment Today: provided at home Similar Symptoms Previously?: Yes Recently Seen Here or By Another Healthcare Provider: No Review of Systems - Adult - REVIEW OF SYSTEMS - ADULT Constitutional: reports: no symptoms reported Eyes: reports: no symptoms reported Ears, Nose, Mouth & Throat: reports: no symptoms reported Cardiovascular: reports: chest pain Respiratory: reports: see HPI Gastrointestinal: reports: no symptoms reported Genitourinary: reports: no symptoms reported Musculoskeletal: reports: no symptoms reported Integumentary: reports: no symptoms reported Neurological: reports: no symptoms reported Psychiatric: reports: no symptoms reported Endocrine: reports: no symptoms reported Hematologic/Lymphatic: reports: no symptoms reported Allergic/Immunologic: reports: no symptoms reported Past History - Adult - PAST MEDICAL HISTORY-ADULT Review of Records: reports: Medications Reviewed Major Childhood Illnesses: reports: denies history Cardiovascular: reports: CAD, CHF, HTN, hyperlipidemia Respiratory: reports: sleep apnea Gastrointestinal: reports: GERD Obstetrical/Gynecological: reports: denies history Genitourinary: reports: denies history Musculoskeletal: reports: denies history Neurological: reports: denies history Endocrine/Immune: reports: Diabetes, thyroid disorder Other Conditions: reports: denies history - PRIOR SURGERIES/PROCEDURES Surgical/Procedure History: reports: CABG, tonsillectomy, other (vascular surgery bilateral legs) - IMMUNIZATION STATUS Childhood Immunizations: See Nurse Assessment Flu Vaccine: See Nurse Assessment - FAMILY HISTORY Family History: reviewed, not pertinent Physical Exam-General - PHYSICAL EXAM-ADULT Initial Vital Signs Reviewed: Yes - CONSTITUTIONAL General Appearance: alert, mild distress - EYES Eyes: PERRL/EOMI, pink conjunctivae - HEAD, EARS, NOSE, MOUTH & THROAT HENMT: normocephalic/atraumatic, moist mucous membranes, normal ENT inspection, pharynx normal - NECK Neck: full range of motion, supple, normal inspection - RESPIRATORY Respiratory: lungs clear, normal breath sounds, no pleuratic chest pain, no respiratory distress, no accessory muscle use - CARDIOVASCULAR Cardiovascular: regular rate, rhythm, no edema, no gallop, no murmur - GASTROINTESTINAL (ABDOMEN) Abdominal Exam: non tender, soft - MUSCULOSKELETAL Back Exam: normal inspection, no CVA tenderness, no vertebral tenderness, CVA tenderness Extremity: normal range of motion, non-tender, normal inspection, no calf tenderness - SKIN Integumentary: normal color, normal turgor, warm/dry - NEUROLOGIC Neurologic: nuclear weapons specialist II-XII nml as tested, grossly normal, no motor/sensory deficits - PSYCHIATRIC Psych/Mental Status: normal mood/affect, normal thought content, normal thought process - HEART Score HEART Score: History: Moderately Suspicious HEART Score: ECG: Non-Specific Repolarization Disturbance/LBBB/PM HEART Score: Age: > or = 65 Years HEART Score: Risk Factors for Atherosclerotic Disease: > or = 3 Risk Factors or History of Atherosclerotic Disease HEART Score: Troponin: < or = Normal Limit Total HEART Score:: 6 Progress - PLAN OF CARE/RESULTS Progress/Plan/Lab Results: Vital Signs - 8 hr 03/30/19 03:14 03/30/19 03:15 03/30/19 03:20 Temperature 98.2 F Pulse Rate 82 80 Respiratory Rate 18 22 Blood Pressure 147/76 147/76 O2 Sat by Pulse Oximetry 98 96 98 03/30/19 03:30 03/30/19 03:40 03/30/19 03:50 Temperature Pulse Rate 80 78 77 Respiratory Rate 22 22 22 Blood Pressure O2 Sat by Pulse Oximetry 95 97 99 03/30/19 04:00 03/30/19 04:10 03/30/19 04:20 Temperature Pulse Rate 78 75 78 Respiratory Rate 21 22 23 Blood Pressure O2 Sat by Pulse Oximetry 98 98 97 03/30/19 04:30 03/30/19 04:40 03/30/19 04:50 Temperature Pulse Rate 78 79 74 Respiratory Rate 22 21 23 Blood Pressure O2 Sat by Pulse Oximetry 99 98 99 03/30/19 05:00 03/30/19 05:03 Temperature Pulse Rate 81 81 Respiratory Rate 20 21 Blood Pressure 120/56 120/60 O2 Sat by Pulse Oximetry 95 97 Laboratory Results - last 24 hr 03/30/19 03/30/19 03/30/19 03:30 03:30 03:30 WBC 11.85 H RBC 4.79 Hgb 11.7 L Hct 37.3 L MCV 77.9 L MCH 24.4 L MCHC 31.4 L RDW Std Deviation 18.6 H Plt Count 231 MPV 12.0 H Immature Gran % (Auto) 0.3 Neut % (Auto) 83.5 H Lymph % (Auto) 6.4 L Bulloch % (Auto) 8.5 Eos % (Auto) 1.0 Baso % (Auto) 0.3 Immature Gran # (Auto) 0.04 Neut # (Auto) 9.89 H Lymph # (Auto) 0.76 L Bulloch # (Auto) 1.01 H Eos # (Auto) 0.12 Baso # (Auto) 0.03 PT INR PTT (Actin FS) Sodium 133 L Potassium 4.8 Chloride 95 L Carbon Dioxide 24 L Anion Gap 14 BUN 48 H Creatinine 1.9 H Estimated GFR/1.73 m2 36 BUN/Creatinine Ratio 25 Glucose 416 H* Calculated Osmolality 297 Calcium 8.8 Total Bilirubin 0.70 AST 14 ALT 13 Alkaline Phosphatase 121 Creatine Kinase 105 Troponin T Nof-Y-Fscnxpowjth Pept 2597 H Total Protein 7.8 Albumin 4.0 Globulin 3.8 Albumin/Globulin Ratio 1.1 03/30/19 03/30/19 03:30 03:30 WBC RBC Hgb Hct MCV MCH MCHC RDW Std Deviation Plt Count MPV Immature Gran % (Auto) Neut % (Auto) Lymph % (Auto) Bulloch % (Auto) Eos % (Auto) Baso % (Auto) Immature Gran # (Auto) Neut # (Auto) Lymph # (Auto) Bulloch # (Auto) Eos # (Auto) Baso # (Auto) PT 15.1 INR 1.10 PTT (Actin FS) 36.0 Sodium Potassium Chloride Carbon Dioxide Anion Gap BUN Creatinine Estimated GFR/1.73 m2 BUN/Creatinine Ratio Glucose Calculated Osmolality Calcium Total Bilirubin AST ALT Alkaline Phosphatase Creatine Kinase Troponin T 0.045 Usm-F-Pegbxdsqhzy Pept Total Protein Albumin Globulin Albumin/Globulin Ratio Orders Category Date Time Status CHEST-1 VIEW [RAD] Stat Exams 03/30/19 03:24 Taken CBC WITH DIFF [HEME] Stat Lab 03/30/19 03:30 Completed CK PROFILE [SP CHEM] Stat Lab 03/30/19 03:30 Completed COMPREHENSIVE METABOLIC PANEL [CHEM] Stat Lab 03/30/19 03:30 Completed PRO B-NATRIURETIC PEPTIDE Stat Lab 03/30/19 03:30 Completed PROTIME WITH INR [COAG] Stat Lab 03/30/19 03:30 Completed PTT [COAG] Stat Lab 03/30/19 03:30 Completed TROPONIN T Stat Lab 03/30/19 03:30 Completed Aspirin Med 03/30/19 03:24 Discontinued 324 mg PO NOW ONE Bumetanide [Bumex] Med 03/30/19 04:45 Discontinued 2.5 mg IV NOW ONE Insulin Human Regular [Humulin R] Med 03/30/19 04:22 Discontinued 7 unit IV NOW ONE Nitroglycerin Med 03/30/19 03:25 Discontinued 1 inch TOP NOW ONE EKG [EKG] Stat Ther 03/30/19 03:03 Ordered LAST BUN/Cr here was in 12/2017, was 20/10.2 Result Diagrams: 03/30/19 03:30 03/30/19 03:30 - EKG 1 Time of EKG reading by physician:: 03:14 EKG Read and Signed by:: Hair Puckett Rate: 81 Rhythm: accel Jxnal, occ PVC QRS: NSIVCD ST Wave: depressed (infer/lat) Prior EKG Comparison: unchanged from prior (01/01/2018) - XRAY 1 XRAY Study: Chest Impression: Abnormal (mild PVC) - CONSULTS/PCP/HOSPITALIST Notification #1 *Consult/PCP/Hospitalist*: [place] Time Discussed: 04:50 Consult Disposition: Admit Departure - Departure Date of Disposition Decision: 03/30/19 Time of Disposition Decision: 04:46 DIAGNOSIS: Chest pain Qualifiers: Chest pain type: unspecified Qualified Code(s): R07.9 - Chest pain, unspecified Disposition: ADMITTED INPATIENT 09 Certified Medical Emergency: Emergent Condition: Good Referrals and Follow-Ups: Manisha Peoples MD [Primary Care Provider] - - Critical Care Note This patient required my direct & personal management of CC.: No Attestation - Physician/ MARJAN Attestation Patient care was provided by Advanced Practice Provider:: No The physician spent face to face time with patient:: Yes Advanced Practice Provider documentation review:: Supervising physician onsite and consulted in the evaluation and care of this patient. The physician did have a face to face encounter with the patient.
[2019-03-30 03:44] LABS: BASO# 0.03 X1000 (0.0-0.2); BASO% 0.3 % (0.0-0.8); EOS# 0.12 X1000 (0.0-0.7); HEMATOCRIT 37.3 % (42.0-52.0); HEMOGLOBIN 11.7 g/dL (14.0-18.0); IMM GRAN# 0.04 X1000 (0.0-0.04); IMM GRAN% 0.3 % (0.0-0.5); LYMPH# 0.76 X1000 (1.2-3.4); LYMPH% 6.4 % (20.5-51.1); MCH 24.4 PG (27-31); MCHC 31.4 g/dL (33-37); MCV 77.9 FL (81-99); MONO# 1.01 X1000 (0.11-0.59); MONO% 8.5 % (1.7-9.3); NEUT# 9.89 X1000 (1.4-6.5); NEUT% 83.5 % (42.2-75.2); PLT 231 X1000 (130-400); RBC 4.79 XMIL (4.7-6.1); RDW 18.6 % (11.5-14.5); WBC 11.85 X1000 (4.8-10.8)
[2019-03-30 03:59] LABS: INR 1.1; PROTIME 15.1 Seconds (11.0-16.0)
[2019-03-30 04:16] LABS: ALB/GLOB RATIO 1.1; CALCIUM 8.8 mg/dL (8.8-10.2); CREATININE 1.9 mg/dL (0.7-1.2); POTASSIUM 4.8 mmol/L (3.5-5.1); TOTAL BILIRUBIN 0.7 mg/dL (0.20-1.00); TOTAL PROTEIN 7.8 g/dL (6.3-8.3)
[2019-03-30] MEDS ORDERED: BUMEX IV ONE ×2 (04:21→04:45)
[2019-03-30] MEDS ORDERED: HUMULIN R IV ONE (04:22)
--- NOTE | 2019-03-30 07:37 | Diag Imaging Result Doc PS360 ---
EXAM: CHEST-1 VIEW 03/30/2019 HISTORY: CP TECHNIQUE: AP portable at 0336 COMMENT: There is cardiomegaly. There is increased interstitial opacity particularly over the right lower lobe. This is worse than on 01/03/2018. IMPRESSION: Cardiomegaly and pulmonary edema. Electronically signed by Andres Max 03/30/2019 7:35 AM
[2019-03-30] MEDS ORDERED: TYLENOL PO PRN (08:04)
[2019-03-30] MEDS ORDERED: NITROGLYCERIN SL PRN (08:04)
[2019-03-30] MEDS ORDERED: ZOFRAN IV PRN (08:04)
[2019-03-30] MEDS: DOXYCYCLINE 100 MG in NS 250 ML IV SCH ×2 (08:35→22:28)
[2019-03-30] MEDS: JANUVIA PO SCH (09:27)
[2019-03-30] MEDS: ELIQUIS PO SCH ×2 (09:27→21:54)
[2019-03-30] MEDS: IMDUR PO SCH (09:27)
[2019-03-30] MEDS: COREG PO SCH ×2 (09:27→21:53)
[2019-03-30] MEDS: CORDARONE PO SCH (09:27)
[2019-03-30] MEDS: ASPIRIN EC PO SCH (09:28)
[2019-03-30] MEDS: LASIX IV SCH ×2 (09:28→21:54)
[2019-03-30] MEDS: ENTRESTO 24 MG-26 MG TABLET PO SCH ×2 (09:28→21:53)
--- NOTE | 2019-03-30 10:26 | HISTORY AND PHYSICAL ---
CHIEF COMPLAINT: Chest pain and shortness of breath. Briefly this is a 64-year-old male with CHF who presents from home with shortness of breath symptoms. He has been complaining of shortness of breath for last couple days. Chest pain started this morning when it arose him out of sleep and he got concerned and came in for evaluation. He reports he has very infrequent issues with his heart. He reports he has had 2 bypass surgeries, 1 time 5, 1 time 2. His workup in the ER was most consistent with a heart failure exacerbation. They were initially more concerned about the chest pain than anything else. His creatinine is 1.9. His glucose was 416. He does report increased swelling in his lower extremities, a little bit worse on the left than the right with some erythematous changes. His proBNP was 2597. His chest x-ray showed cardiomegaly and interstitial edema but was relatively under penetrated. There may be some right lower lobe infiltrate, but he reports no fevers, cough. The patient admitted for CHF exacerbation. PAST MEDICAL HISTORY: 1. Again CHF, presumably systolic. 2. Type 2 diabetes. 3. History of atrial fibrillation. 4. Hypertension. 5. PVD. 6. Hypothyroidism. 7. Sleep apnea. 8. CAD. 9. GERD. PAST SURGICAL HISTORY: He has had a tonsillectomy, CABG. He has had an aortobifemoral bypass, that may be what he is talking about. ICD placement, cardiac ablation. SOCIAL HISTORY: Disabled. . No alcohol. No tobacco. FAMILY HISTORY: Is positive for CAD, type 2 diabetes. ALLERGIES: No known drug allergies. MEDICATIONS: List has not been 100% verified but showed 1. Tresiba 30. 2. Bumex 1 b.i.d. 3. Cordarone 200. 4. Coreg 6.25 b.i.d. 5. Aspirin 81 daily. 6. Eliquis 5 b.i.d. 7. Entresto 24/ b.i.d. 8. Imdur 30 daily. 9. Januvia 50 daily. 10. Klor-Con 10 t.i.d. 11. Lasix 40 b.i.d. 12. Lipitor 80 daily. 13. Metolazone 2.5 q.72. 14. FlexPen. 15. Protonix. 16. Synthroid 75 daily. 17. Nitrostat. REVIEW OF SYSTEMS: Otherwise negative times a 10 point review of systems. PHYSICAL EXAM: VITAL SIGNS: Blood pressure was 127/57, heart rate 75, respiratory rate of 17, temp was normal at 98.2 degrees, 98 percent on 2 L. GENERAL: A well-developed male in mild respiratory distress. HEENT: Head exam was normocephalic, atraumatic. Eye exam: Pupils equal, round, reactive to light. Extraocular movements were intact. Sclerae are anicteric. Ears, nose and throat exam: He had moist mucous membranes. CARDIOVASCULAR: Regular rate and rhythm. No murmurs, gallops, or rubs. PULMONARY: He had diminished breath sounds throughout with some rales at the bases. GI: Soft, nontender, nondistended. Bowel sounds are positive. NEUROLOGICAL: Exam was nonfocal. MUSCULOSKELETAL: Exam was 4 to 5 in all 4 extremities. SKIN: He had erythema in his left anterior roberts about [address] on the roberts. He had onychomycosis. He had a couple areas of subcentimeter superficial denudation but he kind of had a honey-colored crust to it consistent with possible early impetigo and early cellulitis. PROBLEM LIST: 1. The patient seems to be stabilizing. This is a 64-year-old male presenting with chest pain and acute congestive heart failure exacerbation, probably some early cellulitis. 2. Acute systolic heart failure. We will continue diuretics. Continue his regular medications and monitor closely. 3. Chest pain. We will do serial cardiac enzymes. Get an echo, Cardiology opinion and follow. 4. Type 2 diabetes. We will continue sliding scale insulin. Appears to be not well controlled at least currently. There may be distinctively compliance issues associated with that and we will continue to follow. He does have a bit of renal insufficiency but he does look also overloaded. 5. Cellulitis. We will continue empiric antibiotics. 6. Chronic renal failure. We will need to closely monitor that in the setting of diuresis, which I will continue with Lasix and follow. Dr. Peoples is his primary care doctor and he will assume care later today. cc: MD Renzo Currie MD
[2019-03-30] MEDS: HUMALOG SUBQ SCH ×3 (14:40→21:56)
--- NOTE | 2019-03-30 15:00 | ECHO REPORT ---
ORDER DATE: 03/30/2019 INTERPRETING PHYSICIAN: Dr. Alli Luna ECHOCARDIOGRAPHIC MEASUREMENTS: 1. Interventricular septum: 1.1 cm. 2. Posterior wall: 1.1 cm. 3. Diastolic diameter: 5.0 cm. 4. Left atrium: 5.3 cm. 5. Aortic root: 3.5 cm. SUMMARY OF THE 2-DIMENSIONAL IMAGIN. Aortic valve leaflets were trileaflet. 2. Pulmonic valve was normal. 3. Technically suboptimal study. Very poor acoustic window. 4. Pacing leads were noted in the right chamber. 5. Mitral valve was normal. 6. Tricuspid valve was normal. 7. There is mild to moderate mitral regurgitation. 8. Mild tricuspid regurgitation. Peak velocity across the tricuspid valve was less than 2 m/sec. 9. Peak velocity across the aortic valve less than 2 m/sec. There is no aortic stenosis. There is mild aortic regurgitation. There is biatrial enlargement. 10. Left ventricle is dilated with an estimated ejection fraction of 25 to 30 percent. There is severe global hypokinesis associated with diastolic dysfunction. There is biatrial enlargement. 11. There is no pericardial effusion or obvious intracardiac mass or thrombus seen. cc: MD Moreno Hayes MD Jagan Reddy, MD
--- NOTE | 2019-03-30 16:49 | PROGRESS NOTE ---
DATE: 03/30/2019 SUBJECTIVE: Mr. Duong is doing better. I came to evaluate him because nurse reported respiratory rate being 13. When I evaluated the patient, the patient was feeling comfortably. Patient claims he is feeling better. No chest pain. No nausea or vomiting. I ordered blood gas but they entered it for in the morning. I will get it done now. OBJECTIVE: Vital Signs: His vital signs noted. Neck: Is supple. No JVD. Lungs: Bilateral good air entry present. CVS: S1 and S2 heard. 2/6 systolic murmur at the apex. Abdomen: Soft, globular. Bowel sounds present. Extremities: Patient does have evidence of cellulitis left leg. FLOATING OPERATOR: Alert, awake, answering questions fairly well. The patient problems includes chest pain, pulmonary edema, cellulitis left leg, diabetes mellitus. We will continue current treatment. IV antibiotics. Close observation. Overall plan discussed with the patient. Supervisor [employer] is going to evaluate the patient today. cc: MD Renzo Snow MD
[2019-03-30 16:56] LABS: ALLEN TEST NO; BE 3.4 mmoll (-3.0-3.0); BLOOD TYPE ARTERIAL; HCO3-(ACT) 27.5 mmoll (20.0-26.0); METHB 1.3 % (0.0-1.5); MODALITY ROOM AIR; O2(CT) 14.8 mL/dL (15.0-23.0); O2HB 94.4 % (95.0-99.0); PCO2(98.6) 35 mmHg (35-45); PO2(98.6) 79 mmHg (60-100); SAMPLE BLOOD; SAO2 97.1 % (95.0-100.0); THB 11.1 g/dL (11.5-17.4); pH(98.6) 7.49 (7.35-7.45)
[2019-03-30] MEDS: LIPITOR PO SCH (21:53)
[2019-03-30] MEDS: TRESIBA FLEXTOUCH U-100 SUBQ SCH (22:28)
[2019-03-30] MEDS ORDERED: INSULIN PEN NEEDLES ONE (22:41)
[2019-03-31] MEDS: SYNTHROID PO SCH (06:28)
[2019-03-31] MEDS: PROTONIX PO SCH (06:28)
[2019-03-31] MEDS: HUMALOG SUBQ SCH ×4 (06:28→20:26)
[2019-03-31 07:54] LABS: BASO# 0.05 X1000 (0.0-0.2); BASO% 0.5 % (0.0-0.8); EOS# 0.16 X1000 (0.0-0.7); EOS% 1.6 % (0.0-10.0); HEMATOCRIT 36.2 % (42.0-52.0); HEMOGLOBIN 11.1 g/dL (14.0-18.0); IMM GRAN# 0.02 X1000 (0.0-0.04); IMM GRAN% 0.2 % (0.0-0.5); LYMPH# 0.92 X1000 (1.2-3.4); LYMPH% 9.3 % (20.5-51.1); MCH 24.4 PG (27-31); MCHC 30.7 g/dL (33-37); MCV 79.6 FL (81-99); MONO# 0.82 X1000 (0.11-0.59); MONO% 8.3 % (1.7-9.3); MPV 12.7 FL (7.4-10.4); NEUT# 7.95 X1000 (1.4-6.5); NEUT% 80.1 % (42.2-75.2); PLT 234 X1000 (130-400); RBC 4.55 XMIL (4.7-6.1); RDW 18.4 % (11.5-14.5); WBC 9.92 X1000 (4.8-10.8)
[2019-03-31 07:55] LABS: HEMOGLOBIN A1C 11.2 % (4.8-6.0)
[2019-03-31] MEDS: DUONEB (A & A) INH PRN ×2 (08:03→23:11)
[2019-03-31 08:11] LABS: ALBUMIN 3.4 g/dL (3.5-5.0); CALCIUM 8.6 mg/dL (8.8-10.2); CREATININE 1.6 mg/dL (0.7-1.2); POTASSIUM 4.1 mmol/L (3.5-5.1); TOTAL BILIRUBIN 0.88 mg/dL (0.20-1.00); TOTAL PROTEIN 6.9 g/dL (6.3-8.3)
--- NOTE | 2019-03-31 08:30 | PROGRESS NOTE ---
DATE: 03/31/2019 SUBJECTIVE: Mr. Duong is doing better. The patient is still, at times complaining of shortness of breath. Does have cough with scanty sputum production. No high-grade fever or chills. Leg swelling improving. No nausea or vomiting. Patient admitted yesterday with increasing shortness of breath. The patient does have congestive heart failure due to systolic dysfunction. The patient is a vague and poor historian. Known case of diabetes mellitus, hypertension, atrial fibrillation, peripheral vascular disease, sleep apnea. OBJECTIVE: Vital Signs: Blood pressure 132/47, pulse 68, respirations 16, temperature 98.7 degrees, O2 saturation was 100%. Skin: The patient does have a superficial ulceration on the leg. Redness improving. Neck: Supple. No JVD, thyromegaly, or lymphadenopathy. Chest: Bibasilar crepitation. Occasional wheezing. CVS: S1 and S2 heard. A 2/6 systolic murmur at the apex. Abdomen: Soft, globular. Bowel sounds present. Extremities: Leg swelling improved. FRONT OFFICE ADMINISTRATOR: Alert, awake. Answering questions fairly well. Laboratory Data: Done today. CBC results reviewed. Electrolytes are pending. His hemoglobin A1c was 11.2. ASSESSMENT: Patient's problems include: 1. Uncompensated systolic heart failure. On echocardiogram, ejection fraction was 25 to 30 percent. 2. Cellulitis, left leg. The patient is on intravenous doxycycline. 3. Acute kidney injury. 4. Morbid obesity. 5. Hypertension. 6. Atrial fibrillation. PLAN: Continue current treatment. Close observation. Waiting for e business project manager evaluation. Overall plan discussed with the patient and he is in agreement. cc: MD Renzo Snow MD
--- NOTE | 2019-03-31 09:31 | Diag Imaging Result Doc PS360 ---
US RENAL 2 (RETROPER) COMPLETE - 03/31/2019 INDICATION: chelsey/arf TECHNIQUE: COMPARISON: 09/18/2016 FINDINGS: There is a 2 cm left renal cysts. This was present previously. No hydronephrosis. Renal sizes are normal. Background renal echotexture is normal. The right kidney measures 11.7 x 5.4 x 5.5 cm. The left kidney measures 11.5 x 4.9 x 5.8 cm. Urinary bladder is normal. IMPRESSION: Benign left renal cyst. No acute disease. Electronically signed by Rogelio Sheth 03/31/2019 9:28 AM
[2019-03-31] MEDS: ENTRESTO 24 MG-26 MG TABLET PO SCH ×2 (10:12→20:42)
[2019-03-31] MEDS: DOXYCYCLINE 100 MG in NS 250 ML IV SCH ×2 (10:12→20:41)
[2019-03-31] MEDS: IMDUR PO SCH (10:12)
[2019-03-31] MEDS: ASPIRIN EC PO SCH (10:12)
[2019-03-31] MEDS: JANUVIA PO SCH (10:13)
[2019-03-31] MEDS: COREG PO SCH ×2 (10:13→20:25)
[2019-03-31] MEDS: ELIQUIS PO SCH ×2 (10:13→20:25)
[2019-03-31] MEDS: LASIX IV SCH ×2 (10:13→20:25)
[2019-03-31] MEDS: CORDARONE PO SCH (10:16)
--- NOTE | 2019-03-31 14:30 | CARDIOLOGY CONSULTATION ---
DATE: 03/31/2019 REASON FOR CONSULTATION: Cardiology was consulted for heart failure. HISTORY OF PRESENT ILLNESS: Mr. Juan J Duong is a 64-year-old, gentleman with a history of congestive heart failure, coronary artery disease, coronary artery bypass grafting. Comes with complaints of increasing shortness of breath associated with chest discomfort. He came to the emergency room. His electrocardiogram revealed normal sinus rhythm with nonspecific ST-T changes. Cardiac enzymes were negative. The patient's chest x-ray revealed cardiomegaly, pulmonary edema. The patient had progressing worsening shortness of breath and became orthopneic. Since admission to the hospital, his shortness of breath has improved. He has an extensive cardiac medical history as below. REVIEW OF SYSTEMS: A 14-point review of systems was done. GI System: There is no history of nausea, vomiting, or diarrhea. There is no history of hematemesis or melena. Central Nervous System: No focal weakness to suggest a CVA or TIA. Respiratory System: As above. No fevers or chills. Musculoskeletal System: He has had excoriation and infection of the lower extremities. PAST MEDICAL HISTORY: 1. Coronary artery disease. He had open heart surgery in 2000 and again in 2010. 2. Status post AICD placement in November 2016. 3. LV dysfunction, congestive heart failure, atrial fibrillation, ablation in the past, is on anticoagulation therapy. 4. Hypertension. 5. Diabetes. 6. Hyperlipidemia. 7. Degenerative joint disease. 8. Peripheral vascular disease with lower extremity arterial bypass. 9. Sleep apnea. 10. Tonsillectomy. MEDICATIONS: His medications at home include aspirin 81 mg a day, levothyroxine 75, Coreg 12.5 b.i.d., amiodarone 200 mg a day, Eliquis 5 mg b.i.d., bumetanide 1 mg p.o. b.i.d., potassium supplements, atorvastatin 80, insulin, metolazone 2.5 mg every 3 days, Entresto 1 mg twice daily, Januvia 50, isosorbide mononitrate 30. ALLERGIES: He is not known to be allergic to any medications. SOCIAL HISTORY: He denies alcohol and tobacco abuse at the present time. PHYSICAL EXAMINATION: Vital Signs: Blood pressure 132/47. First and second heart sounds were heard. There was a soft systolic murmur. Respiratory System: Scattered bibasilar inspiratory crepitations. Abdomen was soft, obese, nontender. There was no guarding or rigidity. Bowel sounds were heard. Central Nervous System: Alert and was moving all 4 extremities. Examination of extremities revealed pedal edema with cellulitis features in both extremities. ASSESSMENT AND PLAN: Mr. Juan J Duong is a 64-year-old, gentleman with a history of coronary artery bypass grafting x2, diabetes, systolic heart failure, automatic implantable cardioverter defibrillator placement, who comes with complaints of increasing shortness of breath and orthopnea. Was in heart failure. Symptomatically, he has improved. He has been ruled out for myocardial infarction by cardiac enzymes. His laboratory examination revealed the cardiac enzymes were negative. Sodium 139, potassium 4.1, BUN 42, creatinine 1.6. That has been stable. Hematology: WBC 4.5, hemoglobin 11.1, hematocrit 36, platelet count of 234,000. RECOMMENDATIONS: 1. We will continue with his home medications of beta-blockers, Entresto, and IV diuretics. Symptomatically, he has improved. We will get a chest x-ray, PA and lateral in the morning. 2. He has atrial fibrillation, is anticoagulated. I have not made any changes. 3. He has cellulitis on his left leg. He is on intravenous doxycycline would. Recommend continuing medications. Thank you for the consult. We will follow hospital course. cc: MD Renzo Hayes MD
[2019-03-31] MEDS: LIPITOR PO SCH (20:25)
[2019-03-31] MEDS: TRESIBA FLEXTOUCH U-100 SUBQ SCH (20:42)
[2019-04-01] MEDS: HUMALOG SUBQ SCH ×4 (06:22→21:35)
[2019-04-01] MEDS: PROTONIX PO SCH (06:24)
[2019-04-01] MEDS: SYNTHROID PO SCH (06:24)
[2019-04-01 06:46] LABS: BASO# 0.04 X1000 (0.0-0.2); BASO% 0.5 % (0.0-0.8); EOS# 0.17 X1000 (0.0-0.7); HEMATOCRIT 38.8 % (42.0-52.0); HEMOGLOBIN 11.7 g/dL (14.0-18.0); IMM GRAN# 0.02 X1000 (0.0-0.04); IMM GRAN% 0.2 % (0.0-0.5); LYMPH# 1.12 X1000 (1.2-3.4); LYMPH% 13.1 % (20.5-51.1); MCHC 30.2 g/dL (33-37); MCV 79.7 FL (81-99); MONO# 0.51 X1000 (0.11-0.59); MPV 12.1 FL (7.4-10.4); NEUT# 6.69 X1000 (1.4-6.5); NEUT% 78.2 % (42.2-75.2); PLT 263 X1000 (130-400); RBC 4.87 XMIL (4.7-6.1); RDW 18.8 % (11.5-14.5); WBC 8.55 X1000 (4.8-10.8)
--- NOTE | 2019-04-01 07:53 | EKG Report ---
Test Performed on : 03/30/2019 03:11:12 AM Test Reason : cp Blood Pressure : / mmHG Vent. Rate : 081 BPM Atrial Rate : 258 BPM P-R Int : 000 ms QRS Dur : 104 ms QT Int : 392 ms P-R-T Axes : 000 014 181 degrees QTc Int : 455 ms Accelerated Junctional rhythm. with occasional premature ventricular complexes. ST & T wave abnormality, consider inferolateral ischemia Abnormal ECG When compared with ECG of 01-JAN-2018 13:40, Junctional rhythm. has replaced Sinus rhythm. Nonspecific T wave abnormality, improved in Inferior leads Unconfirmed Result
[2019-04-01 07:55] LABS: ALB/GLOB RATIO 1.3; ALBUMIN 3.8 g/dL (3.5-5.0); CALCIUM 8.9 mg/dL (8.8-10.2); CREATININE 1.6 mg/dL (0.7-1.2); MAGNESIUM 2.4 mg/dL (1.5-2.7); POTASSIUM 4.5 mmol/L (3.5-5.1); TOTAL BILIRUBIN 0.62 mg/dL (0.20-1.00); TOTAL PROTEIN 6.7 g/dL (6.3-8.3)
--- NOTE | 2019-04-01 07:58 | Diag Imaging Result Doc PS360 ---
EXAM: CHEST-2 VIEWS HISTORY: chf TECHNIQUE: Chest two views COMPARISON: 03/30/2019 FINDINGS: The lungs are well expanded. The heart is mildly enlarged. There are sternal wires and a left-sided pacemaker The vessels are less distended. There are no infiltrates. No pleural effusions. IMPRESSION: Interval improvement Electronically signed by Kuldip Talley 04/01/2019 7:55 AM
[2019-04-01] MEDS: DOXYCYCLINE 100 MG in NS 250 ML IV SCH ×2 (08:03→21:34)
[2019-04-01] MEDS: LASIX IV SCH (08:10)
[2019-04-01] MEDS: JANUVIA PO SCH (08:11)
[2019-04-01] MEDS: IMDUR PO SCH (08:11)
[2019-04-01] MEDS: CORDARONE PO SCH (08:12)
[2019-04-01] MEDS: ENTRESTO 24 MG-26 MG TABLET PO SCH ×2 (08:12→21:37)
[2019-04-01] MEDS: ASPIRIN EC PO SCH (08:12)
[2019-04-01] MEDS: COREG PO SCH ×2 (08:12→21:36)
[2019-04-01] MEDS: ELIQUIS PO SCH ×2 (08:12→21:36)
[2019-04-01] MEDS: DUONEB (A & A) INH PRN ×2 (10:39→16:24)
[2019-04-01] MEDS: CUBICIN 500 MG in NS 100 ML IV SCH (10:47)
[2019-04-01] MEDS: TRESIBA FLEXTOUCH U-100 SUBQ SCH (21:35)
[2019-04-01] MEDS: LIPITOR PO SCH (21:36)
--- NOTE | 2019-04-01 21:48 | PROGRESS NOTE ---
DATE: 04/01/2019 SUBJECTIVE: A 64-year-old white male noncompliant who was admitted on 03/30 basically with chest pain and shortness of breath, left leg cellulitis, and right thigh infected skin lesion not fluctuant. The patient is noncompliant. He was not seen for a while. I spoke to the this afternoon. He was admitted here back in January 2018. The patient was seen by Dr. Luna. CHF symptoms was much improved. REVIEW OF SYSTEMS: Shortness of breath and swelling of left leg with a rash and redness and then impending skin lesion, abscess on the back of right thigh. PAST MEDICAL HISTORY: Reviewed. SURGICAL HISTORY: Reviewed. MEDICINES: Reviewed. ALLERGIES: Not known. EXAMINATION: Vitals: Temperature is 97.5 degrees, pulse is 70, blood pressure is 138/61, nasal cannula 2%, 93%. HEENT Exam: Within normal limits. Neck: Supple. Chest: Clear. Heart: Sounds are regular. Abdomen: Belly is soft, obese, nontender. Extremities: He has a hard knot about 2 inches on the back of the right thigh noted. Left leg diffusely swollen and redness noted. No neurological deficits. LABORATORY DATA: CBC: White cell count 8.5, hematocrit 38, platelets 263,000. Sodium 140, potassium 4.5, chloride 101, BUN 42, creatinine 1.6, glucose 225. Hemoglobin A1c 11.2. Liver function tests were normal. ProBNP 3000. Echocardiography report: Ejection fraction 30%. Biatrial enlargement. No pericardial effusion. Global hypokinesis. ASSESSMENT AND PLAN: 1. Chronic decompensated systolic heart failure due to ischemic cardiomyopathy, status post AICD and pacemaker, improving after diuresis. 2. Paroxysmal atrial fibrillation, stable. 3. Complicated diabetes poorly controlled due to noncompliance. 4. Peripheral vascular disease. Bilateral aorto 5 femoral bypass graft. We will check the arterial flow studies. 5. History of sleep apnea on CPAP machine. 6. Deconditioning. 7. Left leg cellulitis with impending abscess in the right thigh. We will continue IV doxycycline followed by daptomycin. 8. Diabetes on Januvia. We will continue to monitor blood sugars. 9. Chronic congestive heart failure and paroxysmal atrial fibrillation on Eliquis 5 mg p.o. b.i.d., Cordarone 200 daily, IV Lasix 40 q.12 hours, which is improving. I am going to decrease once daily. 10. Hypothyroidism on Synthroid. 11. Hyperlipidemia on Lipitor. 12. Discussed with the family about Living Will and positive palliative services and will follow up. LEVEL OF DOCUMENTATION: 35 minutes. cc: Renzo Peoples MD
[2019-04-02 06:33] LABS: BASO# 0.05 X1000 (0.0-0.2); BASO% 0.6 % (0.0-0.8); EOS# 0.18 X1000 (0.0-0.7); EOS% 2.3 % (0.0-10.0); IMM GRAN# 0.02 X1000 (0.0-0.04); IMM GRAN% 0.3 % (0.0-0.5); LYMPH# 0.89 X1000 (1.2-3.4); LYMPH% 11.5 % (20.5-51.1); MCH 24.6 PG (27-31); MCHC 30.8 g/dL (33-37); MCV 79.9 FL (81-99); MONO# 0.51 X1000 (0.11-0.59); MONO% 6.6 % (1.7-9.3); MPV 11.8 FL (7.4-10.4); NEUT# 6.08 X1000 (1.4-6.5); NEUT% 78.7 % (42.2-75.2); PLT 264 X1000 (130-400); RBC 4.88 XMIL (4.7-6.1); RDW 18.9 % (11.5-14.5); WBC 7.73 X1000 (4.8-10.8)
[2019-04-02] MEDS: PROTONIX PO SCH (06:47)
[2019-04-02] MEDS: HUMALOG SUBQ SCH ×4 (06:47→22:05)
[2019-04-02] MEDS: SYNTHROID PO SCH (06:47)
[2019-04-02 06:51] LABS: CALCIUM 8.6 mg/dL (8.8-10.2); CREATININE 1.3 mg/dL (0.7-1.2)
[2019-04-02] MEDS: IMDUR PO SCH (08:49)
[2019-04-02] MEDS: DOXYCYCLINE 100 MG in NS 250 ML IV SCH ×2 (08:49→22:05)
[2019-04-02] MEDS: ELIQUIS PO SCH ×2 (08:50→22:04)
[2019-04-02] MEDS: JANUVIA PO SCH (08:50)
[2019-04-02] MEDS: ENTRESTO 24 MG-26 MG TABLET PO SCH ×2 (08:50→22:04)
[2019-04-02] MEDS: LASIX IV SCH (08:50)
[2019-04-02] MEDS: CORDARONE PO SCH (08:50)
[2019-04-02] MEDS: COREG PO SCH ×2 (08:50→22:04)
[2019-04-02] MEDS: ASPIRIN EC PO SCH (08:50)
[2019-04-02] MEDS: CUBICIN 500 MG in NS 100 ML IV SCH (11:06)
--- NOTE | 2019-04-02 19:26 | PROGRESS NOTE ---
DATE: 04/02/2019 SUBJECTIVE: Patient is a little better and work of breathing is improving. REVIEW OF SYSTEMS: None reported. PHYSICAL EXAMINATION: Vital Signs: Temperature is 97 degrees, pulse is 62, blood pressure is stable. HEENT: Within normal limits. Chest: Clear. Heart: Sounds are very distant. Abdomen: Belly is soft, obese, nontender. Extremities: Left leg has redness with multiple ulcers noted. Also a knot on the back of the right thigh is red. No signs of abscess noted. LABS: CBC: White cell count 7.7, hematocrit 39, platelet 264,000. SMA 7: BUN 36, creatinine 1.3. Chest x-ray was stable. ASSESSMENT AND PLAN: 1. Left leg cellulitis with multiple ulcers, history of peripheral artery disease. Follow up on arterial Doppler studies. 2. Waiting for wound culture. 3. Continue on intravenous doxycycline plus daptomycin. 4. Diabetes, uncontrolled. Continue present treatment. 5. Ischemic cardiomyopathy, stable as per Dr. Luna. Decrease intravenous Lasix to once a day and will follow up. 6. Living Will expressed with the family. LEVEL OF DOCUMENTATION: 25 minutes. cc: Renzo Peoples MD
[2019-04-02] MEDS: LIPITOR PO SCH (22:04)
[2019-04-02] MEDS: TRESIBA FLEXTOUCH U-100 SUBQ SCH (22:05)
[2019-04-03] MEDS: DUONEB (A & A) INH PRN ×2 (04:25→15:04)
[2019-04-03] MEDS: SYNTHROID PO SCH (06:24)
[2019-04-03] MEDS: PROTONIX PO SCH (06:24)
[2019-04-03] MEDS: HUMALOG SUBQ SCH ×4 (06:25→22:04)
[2019-04-03] MEDS: DOXYCYCLINE 100 MG in NS 250 ML IV SCH ×2 (08:50→22:03)
[2019-04-03] MEDS: LASIX IV SCH (08:52)
[2019-04-03] MEDS: ELIQUIS PO SCH ×2 (08:55→22:03)
[2019-04-03] MEDS: IMDUR PO SCH (08:55)
[2019-04-03] MEDS: JANUVIA PO SCH (08:55)
[2019-04-03] MEDS: ENTRESTO 24 MG-26 MG TABLET PO SCH ×2 (08:55→22:03)
[2019-04-03] MEDS: ASPIRIN EC PO SCH (08:55)
[2019-04-03] MEDS: COREG PO SCH ×2 (08:55→22:03)
[2019-04-03] MEDS: CORDARONE PO SCH (08:55)
[2019-04-03] MEDS: CUBICIN 500 MG in NS 100 ML IV SCH (11:09)
--- NOTE | 2019-04-03 20:54 | PROGRESS NOTE ---
DATE: 04/03/2019 SUBJECTIVE: The patient is better, sitting out of the bed. Decreased shortness of breath. Doppler studies were done, waiting for report. Left leg ulcers are healing. No signs of gangrene. OBJECTIVE: Vital signs: Temperature is 97.6, pulse is 62, blood pressure 118/57, 3 L nasal cannula 100%, not in respiratory distress. Chest: Bilateral air entry. Cardiovascular: Heart sounds are very distant. Belly is soft, nontender. Left leg redness is improving. LABS: None reported. Microbiology gram-positive cocci noted. ASSESSMENT AND PLAN: 1. Follow up on arterial flow studies in both legs. 2. Left leg cellulitis. IV doxycycline, daptomycin. 3. Diabetes, controlled. Continue current treatment. 4. Ischemic cardiomyopathy with congestive heart failure is stable. 5. Hypothyroidism on Synthroid. 6. No need for deep venous thrombosis prophylaxis since the patient is on Eliquis, and the patient is anxious to know the lab results. We will check the ABIs and continue present treatment. LEVEL OF DOCUMENTATION: 25 minutes. cc: Renzo Peoples MD
[2019-04-03] MEDS: TRESIBA FLEXTOUCH U-100 SUBQ SCH (22:03)
[2019-04-03] MEDS: LIPITOR PO SCH (22:03)
[2019-04-04] MEDS: DUONEB (A & A) INH PRN ×3 (03:14→15:27)
[2019-04-04] MEDS: SYNTHROID PO SCH (06:08)
[2019-04-04] MEDS: PROTONIX PO SCH (06:08)
[2019-04-04] MEDS: HUMALOG SUBQ SCH ×4 (06:08→21:03)
[2019-04-04] MEDS: ELIQUIS PO SCH ×2 (09:25→21:03)
[2019-04-04] MEDS: ASPIRIN EC PO SCH (09:25)
[2019-04-04] MEDS: LASIX IV SCH (09:25)
[2019-04-04] MEDS: DOXYCYCLINE 100 MG in NS 250 ML IV SCH ×2 (09:25→21:02)
[2019-04-04] MEDS: CORDARONE PO SCH (09:26)
[2019-04-04] MEDS: COREG PO SCH ×2 (09:26→21:03)
[2019-04-04] MEDS: IMDUR PO SCH (09:26)
[2019-04-04] MEDS: ENTRESTO 24 MG-26 MG TABLET PO SCH ×2 (09:26→21:03)
[2019-04-04] MEDS: JANUVIA PO SCH (09:26)
[2019-04-04] MEDS: CUBICIN 500 MG in NS 100 ML IV SCH (12:00)
--- NOTE | 2019-04-04 12:08 | VASCULAR LAB ---
PROCEDURE NAME: Arterial Bilateral Legs - 04/02/2019 REFERRING PHYSICIAN: Dr. Peoples. READING PHYSICIAN: Dr. Romero. RANCH HAND SUPERVISOR: Kirit. INDICATION: Leg ulcers. FINDINGS: The pulse volume waveforms show pulsatile flow at all levels bilaterally. They are blunted at the left calf, ankle, and digital level compared to the right. SEGMENTAL PRESSURES: Right brachial pressure 128, high thigh 146, low thigh 124, popliteal 99, dorsalis pedis 130, posterior tibial 113, toe pressure 61, DANIEL 0.99. Left brachial pressure 131, high thigh 149, low thigh 119, popliteal 105, dorsalis pedis 58, posterior tibial 62, toe pressure 27, DANIEL 0.47. INTERPRETATION: There is an apparent mild stenosis of the distal superficial femoral artery and popliteal artery on the right. There is a more prominent degree of stenosis at multiple levels on the left side, including the left distal superficial femoral artery, popliteal and tibial arteries. This is creating a significant degree of stenosis on the left side. Further imaging with CT angiography of the aorta and runoff may be helpful for further evaluation. cc: MD Renzo Gonzalez MD
[2019-04-04] MEDS: LIPITOR PO SCH (21:03)
[2019-04-04] MEDS: TRESIBA FLEXTOUCH U-100 SUBQ SCH (21:03)
--- NOTE | 2019-04-05 04:12 | PROGRESS NOTE ---
DATE: 04/04/2019 SUBJECTIVE: The patient has a left leg cellulitis. He is on IV doxycycline and daptomycin. He has hypothyroidism. His vital signs are stable. Lungs are clear. Heart sounds are normal. The left leg has multiple sores with some cellulitis. We will continue with the current management on him. -6 cc: MD Renzo Albarran MD
[2019-04-05] MEDS: PROTONIX PO SCH (06:07)
[2019-04-05] MEDS: SYNTHROID PO SCH (06:07)
[2019-04-05] MEDS: HUMALOG SUBQ SCH ×4 (06:08→22:06)
[2019-04-05] MEDS: JANUVIA PO SCH (08:11)
[2019-04-05] MEDS: LASIX IV SCH (08:11)
[2019-04-05] MEDS: ASPIRIN EC PO SCH (08:12)
[2019-04-05] MEDS: CORDARONE PO SCH (08:12)
[2019-04-05] MEDS: COREG PO SCH ×2 (08:12→22:07)
[2019-04-05] MEDS: ELIQUIS PO SCH ×2 (08:12→22:08)
[2019-04-05] MEDS: IMDUR PO SCH (08:12)
[2019-04-05] MEDS: ENTRESTO 24 MG-26 MG TABLET PO SCH ×2 (08:12→22:07)
[2019-04-05] MEDS: DOXYCYCLINE 100 MG in NS 250 ML IV SCH (08:13)
[2019-04-05 09:57] LABS: CALCIUM 8.9 mg/dL (8.8-10.2); CREATININE 1.5 mg/dL (0.7-1.2); POTASSIUM 4.5 mmol/L (3.5-5.1)
[2019-04-05] MEDS: CUBICIN 500 MG in NS 100 ML IV SCH (10:54)
[2019-04-05] MEDS: DUONEB (A & A) INH PRN ×2 (11:00→21:14)
--- NOTE | 2019-04-05 14:48 | Diag Imaging Result Doc PS360 ---
EXAM: CT ANGIOGRAM AORTA W/RUNOFF 04/05/2019 HISTORY: PAD left leg TECHNIQUE: This exam was performed using automated exposure control, adjustment of mA or kV according to patient size, and/or use of iterative reconstruction technique. COMMENT: 3-D MIPS were performed. There are bilateral pleural effusions. There is atelectasis in the right lower lobe. There is some calcific and noncalcified plaque in the superior mesenteric artery. There is some plaque in the proximal right renal artery. There is an aortofemoral graft which is patent bilaterally. There is a filling defect of uncertain etiology in the distal portion of the right limb of the graft just before the anastomosis with the superficial femoral artery. There is calcific plaque throughout the superficial femoral arteries. There is near occlusion in the proximal right superficial femoral artery. There is also high-grade stenosis in the distal left superficial femoral artery at the level of the adductor canal. There is occlusion of the left popliteal artery. The length of occlusion and at least 4.2 cm. There is reconstitution distally. On the left there is occlusion of the proximal anterior tibial artery. There is calcific plaque in the proximal anterior tibial on the right. There is runoff in the right anterior tibial artery to the distal calf. On the right side there appears to be three-vessel runoff to the ankle. There is apparent runoff in the peroneal and posterior tibial on the left to the ankle. IMPRESSION: 1. High-grade stenosis in the proximal right superficial femoral artery. 2. Occlusion of the distal superficial femoral artery on the left. Electronically signed by Andres Max 04/05/2019 2:46 PM
--- NOTE | 2019-04-05 17:43 | PROGRESS NOTE ---
DATE: 04/05/2019 SUBJECTIVE: Patient's breathing is better and left leg redness is improved with multiple skin ulcers noted. Decreased pulses. No signs of gangrene noted. OBJECTIVE: Vital signs: Temperature is 97.9 degrees, pulse 66. Vitals are stable. Chest: Clear. Cardiovascular: Heart sounds are distant. Abdomen: Belly is soft, nontender. LABORATORY DATA: Creatinine is 1.5. Wound cultures grew Staph epi. Extremity arterial flow studies: Right DANIEL 0.9, left side is 0.47. Apparently mild stenosis of distal SFA and popliteal artery on the right, more prominent stenosis at multiple levels on the left side including left distal superficial femoral and popliteal tibial artery. ASSESSMENT AND PLAN: 1. Congestive heart failure, ischemic cardiomyopathy, stable. 2. Paroxysmal atrial fibrillation, stable. 3. Chronic kidney disease, stable. 4. Left leg cellulitis on intravenous doxycycline and daptomycin. We will discontinue the doxycycline. 5. Peripheral artery disease, status post aortobifemoral bypass as per history in the past by Dr. Garza. Given the DANIEL 0.47, not healing, consider CT aortogram with runoff. Based on that, further recommendations will be followed. Continue present treatment, and we will follow up. LEVEL OF DOCUMENTATION: 25 minutes. cc: Renzo Peoples MD
[2019-04-05] MEDS: TRESIBA FLEXTOUCH U-100 SUBQ SCH (22:07)
[2019-04-05] MEDS: LIPITOR PO SCH (22:07)
[2019-04-06] MEDS: DUONEB (A & A) INH PRN ×5 (01:30→21:33)
[2019-04-06] MEDS: SYNTHROID PO SCH (06:40)
[2019-04-06] MEDS: HUMALOG SUBQ SCH ×4 (06:40→21:23)
[2019-04-06] MEDS: PROTONIX PO SCH (06:40)
[2019-04-06 08:09] LABS: CALCIUM 8.9 mg/dL (8.8-10.2); CREATININE 1.5 mg/dL (0.7-1.2); POTASSIUM 3.9 mmol/L (3.5-5.1)
[2019-04-06] MEDS: CUBICIN 500 MG in NS 100 ML IV SCH (09:36)
[2019-04-06] MEDS: ENTRESTO 24 MG-26 MG TABLET PO SCH ×2 (09:37→21:23)
[2019-04-06] MEDS: ASPIRIN EC PO SCH (09:37)
[2019-04-06] MEDS: IMDUR PO SCH (09:37)
[2019-04-06] MEDS: JANUVIA PO SCH (09:37)
[2019-04-06] MEDS: CORDARONE PO SCH (09:37)
[2019-04-06] MEDS: ELIQUIS PO SCH ×2 (09:37→21:23)
[2019-04-06] MEDS: COREG PO SCH ×2 (09:37→21:23)
[2019-04-06] MEDS: LASIX IV SCH (09:39)
--- NOTE | 2019-04-06 13:18 | PROGRESS NOTE ---
DATE: 04/06/2019 Vital signs stable with temperature 97.8 degrees, heart rate 70, respirations 20, blood pressure 127/56. O2 saturation on 2 liters nasal oxygen 98%. The patient is a 64-year-old white man with congestive heart failure, cardiomyopathy, diabetes, and peripheral artery disease. He went to Dr. Barraza and had surgery in [place] for the right leg a few years ago. It has been doing better than the left. He has some ulcerations on his left lower leg and is receiving daptomycin IV. Chest x-ray done on 04/01/2019 was improved from one done on 03/30/2019. Laboratory today revealed sodium 142, potassium 3.9, BUN 40, creatinine 1.5, stable. Sugar was 127 this morning. He is anxious to go home, but needs a little bit more antibiotics for his legs. He would like to return to see Dr. Barraza concerning his vascular issues in his legs. He had aortogram with runoff yesterday revealing high-grade stenosis in the proximal right superficial femoral artery, and occlusion of the distal superficial femoral artery on the left. This will probably require vascular surgery. cc: MD Renzo Tamayo MD
[2019-04-06] MEDS: LIPITOR PO SCH (21:23)
[2019-04-06] MEDS: TRESIBA FLEXTOUCH U-100 SUBQ SCH (21:23)
[2019-04-07] MEDS: DUONEB (A & A) INH PRN ×3 (03:55→21:43)
[2019-04-07] MEDS: HUMALOG SUBQ SCH ×4 (06:21→20:29)
[2019-04-07] MEDS: PROTONIX PO SCH (06:48)
[2019-04-07] MEDS: SYNTHROID PO SCH (06:48)
[2019-04-07 07:31] LABS: CALCIUM 9.3 mg/dL (8.8-10.2); CREATININE 1.5 mg/dL (0.7-1.2); POTASSIUM 3.7 mmol/L (3.5-5.1)
[2019-04-07] MEDS: COREG PO SCH ×2 (09:41→20:30)
[2019-04-07] MEDS: CUBICIN 500 MG in NS 100 ML IV SCH (09:41)
[2019-04-07] MEDS: ASPIRIN EC PO SCH (09:41)
[2019-04-07] MEDS: IMDUR PO SCH (09:41)
[2019-04-07] MEDS: LASIX IV SCH (09:41)
[2019-04-07] MEDS: ELIQUIS PO SCH ×2 (09:41→20:21)
[2019-04-07] MEDS: JANUVIA PO SCH (09:42)
[2019-04-07] MEDS: CORDARONE PO SCH (09:42)
[2019-04-07] MEDS: ENTRESTO 24 MG-26 MG TABLET PO SCH ×2 (09:42→20:30)
--- NOTE | 2019-04-07 10:37 | PROGRESS NOTE ---
DATE: 04/07/2019 Vital signs are stable with temperature 97.5 degrees, heart rate 62, respiration 18, blood pressure 129/48, O2 saturation on nasal oxygen of 96%. The patient is feeling about the same. He is anxious to leave the hospital. Sores on his left leg is slowly improving. He has pain trying to walk. Plan definitive vascular procedures on his legs, especially left. This morning, BUN is 39 and creatinine 1.5, stable. Blood sugars 135. Daptomycin is continued. cc: MD Renzo Tamayo MD
[2019-04-07] MEDS: LIPITOR PO SCH (20:21)
[2019-04-07] MEDS: TRESIBA FLEXTOUCH U-100 SUBQ SCH (20:22)
[2019-04-08] MEDS: DUONEB (A & A) INH PRN ×4 (03:35→21:36)
[2019-04-08] MEDS: PROTONIX PO SCH (06:01)
[2019-04-08] MEDS: SYNTHROID PO SCH (06:01)
[2019-04-08] MEDS: HUMALOG SUBQ SCH ×3 (06:03→18:29)
[2019-04-08 07:40] LABS: CALCIUM 8.8 mg/dL (8.8-10.2); CREATININE 1.5 mg/dL (0.7-1.2)
[2019-04-08] MEDS: ELIQUIS PO SCH ×2 (10:18→21:54)
[2019-04-08] MEDS: LASIX IV SCH (10:18)
[2019-04-08] MEDS: CUBICIN 500 MG in NS 100 ML IV SCH (10:18)
[2019-04-08] MEDS: IMDUR PO SCH (10:18)
[2019-04-08] MEDS: JANUVIA PO SCH (10:18)
[2019-04-08] MEDS: CORDARONE PO SCH (10:18)
[2019-04-08] MEDS: ASPIRIN EC PO SCH (10:18)
[2019-04-08] MEDS: COREG PO SCH ×2 (10:18→21:54)
[2019-04-08] MEDS: ENTRESTO 24 MG-26 MG TABLET PO SCH ×2 (10:19→21:54)
--- NOTE | 2019-04-08 11:38 | GENERAL SURGERY CONSULTATION ---
DATE: 04/08/2019 Mr. Duong was admitted on 03/30 with shortness of breath and chest pain. He has also noted to have an ulcer on his left foot that has been present for a month. His CTA shows a left SFA and popliteal occlusion. I have been asked to see him regarding this wound. In hospital, his congestive failure has improved. His cardiomyopathy has improved. His atrial fibrillation is stable. Chronic kidney disease is stable with a creatinine of 1.5. He has a history of an aortobifemoral bypass done by me in the distant past, about 10 years ago. His arterial flow study shows AB index on the left of 0.47. His other medical problems include type 2 diabetes, hypertension, hypothyroidism, sleep apnea, coronary artery disease, gastroesophageal reflux disease. He has had coronary artery bypass grafting, tonsillectomy, ICD placement, cardiac ablation, and aortobifemoral bypass. Medications are listed. They include Eliquis. ALLERGIES: He has no known drug allergies. SOCIAL HISTORY: He is disabled. He does walk around with a walker. He is and lives with his . Denies alcohol or tobacco usage. Family history is pertinent for coronary disease and diabetes. Review of systems is as noted above. On physical exam, he is afebrile, heart rate 74, blood pressure 136/61. No cervical adenopathy. Bilateral breath sounds. Heart has regular rate and rhythm. Abdominal incision is noted. Femoral pulses are present. No pedal pulses are present. Ulceration is noted the dorsum of the left foot. CTA shows occluded left distal superficial femoral artery or popliteal artery. Otherwise he appears to have some runoff to his foot. ASSESSMENT: Left superficial femoral artery occlusion with a chronic ulcer that will not heal. I do think we can traverse this, and hopefully, he will have adequate runoff to his foot through his posterior tibial to give his foot a chance to heal. The patient wants to go home and come back as an outpatient, which is perfectly satisfactory with me. We could set him up as an outpatient to do the distal SFA occlusion with hopefully an atherectomy and a balloon angioplasty. cc: MD Renzo Ferguson MD
--- NOTE | 2019-04-08 21:28 | PROGRESS NOTE ---
DATE: 04/08/2019 SUBJECTIVE: The left leg ulcers are not healing. He is anxious to go home. I did review the CT angiogram with radiologist. REVIEW OF SYSTEMS: None reported. OBJECTIVE: Vital signs: Temperature is 97, pulse 72, blood pressure 124/59. HEENT Exam: Within normal limits. Chest: Clear. Cardiovascular: Heart sounds are regular. Abdomen: Belly is soft, obese, nontender. Good bowel sounds. Extremities: He had multiple skin lesions, not healing. LABORATORY DATA: Sodium 143, potassium 4, chloride 108, BUN 40, creatinine 1.5. ASSESSMENT AND PLAN: 1. Peripheral arterial disease status post aortobifemoral bypass graft by Dr. Garza. Findings discussed DANIEL 0.4, not able to heal. Dr. Garza consult. 2. Diabetes, stable. 3. Ischemic cardiomyopathy, stable. 4. Hypothyroidism. Synthroid. We will discuss with Dr. Garza. Based on that, further recommendations will be followed. LEVEL OF DOCUMENTATION: 25 minutes. cc: Renzo Peoples MD
[2019-04-08] MEDS ORDERED: INSULIN PEN NEEDLES ONE (21:49)
[2019-04-08] MEDS: LIPITOR PO SCH (21:54)
[2019-04-08] MEDS: TRESIBA FLEXTOUCH U-100 SUBQ SCH (21:55)
[2019-04-09] MEDS: HUMALOG SUBQ SCH ×2 (02:13→07:04)
[2019-04-09] MEDS: DUONEB (A & A) INH PRN (03:08)
[2019-04-09] MEDS: SYNTHROID PO SCH (06:37)
[2019-04-09] MEDS: PROTONIX PO SCH (06:37)
[2019-04-09 07:59] VITALS: BP 126/52
[2019-04-09] MEDS: CUBICIN 500 MG in NS 100 ML IV SCH (08:07)
[2019-04-09] MEDS: LASIX IV SCH (08:07)
[2019-04-09] MEDS: CORDARONE PO SCH (08:08)
[2019-04-09] MEDS: IMDUR PO SCH (08:08)
[2019-04-09] MEDS: ELIQUIS PO SCH (08:08)
[2019-04-09] MEDS: ENTRESTO 24 MG-26 MG TABLET PO SCH (08:08)
[2019-04-09] MEDS: ASPIRIN EC PO SCH (08:08)
[2019-04-09] MEDS: JANUVIA PO SCH (08:08)
[2019-04-09] MEDS: COREG PO SCH (08:08)
--- NOTE | 2019-04-10 21:11 | DISCHARGE SUMMARY ---
ADMISSION DATE: 03/30/2019 DISCHARGE DATE: 04/09/2019 DIAGNOSIS: Left leg cellulitis with underlying peripheral arterial disease. SECONDARY DIAGNOSES: 1. Deconditioning. 2. Complicated diabetes with neuropathy. 3. Chronic systolic heart failure with ejection fraction of 30% due to ischemic cardiomyopathy status post automated implantable cardioverter-defibrillator and pacemaker. 4. Paroxysmal atrial fibrillation. 5. History of peripheral vascular disease with bilateral aortobifemoral bypass graft. 6. Sleep apnea. 7. Acid reflux disease. CONSULTS: 1. Dr. Luna. 2. Dr. Garza. PROCEDURES: 1. Renal ultrasound bilateral. No acute disease. A 2 cm left renal cyst. No hydronephrosis. Right kidney 11.7, left kidney 11.5. 2. Extremity arterial flow study. Right DANIEL 0.9, left one is 0.47. Apparently mild stenosis of distal SFA and popliteal artery on the right side. More prominent stenosis at multiple levels on the left side including left distal SFA, popliteal and tibial arteries. 3. Aortogram with runoff: High-grade stenosis in the proximal right SFA. Occlusion of distal left superficial femoral artery. Patent aortobifemoral bypass grafts. 4. Echocardiography report: LV function is 25 to 30 percent. Left ventricle dilated and severe global hypokinesis with diastolic dysfunction. Biatrial enlargement. BRIEF HISTORY: Please see the H and P that was done by hospitalist on 03/30. In brief, he is 64- year-old white gentleman with a history of complicated diabetes, ischemic cardiomyopathy, atrial fibrillation, PAD, sleep apnea who came in with chest pain, shortness of breath, left leg cellulitis. He has decreased pulses and decreased sensory exam. The patient is well known to Dr. Garza in the past with aortobifemoral bypass grafts. HOSPITAL COURSE: Patient was given IV Lasix. Subsequently, CHF symptoms are improved and the followup chest x-ray is much better. The patient was started on IV daptomycin and doxycycline for cellulitis. Cultures grew Staph epidermatitis. Further workup revealed the left leg has poor circulation with [place] distal SFA occlusion. Dr. Garza wants to do the atherectomy and angioplasty. Obviously, the patient was reluctant to stay in the hospital. He wants to be done as an outpatient. LABS: CBC: White cell count 7.7, hematocrit 39, platelet 264,000. PT 15, INR 1.1. ABG on room air pH is 7.49, pCO2 35, PO2 79. SMA 7: Sodium 143, potassium 4, BUN 40, creatinine 1.5. Blood sugars are well controlled. A1c 11.2. I discussed these findings with the patient. Chest x-ray was stable. At the request of the patient, the patient wants to go home. Follow up with Dr. Garza as an outpatient. THE PLAN OF CARE FOLLOWS: 1. Aspirin 81 mg daily, Protonix 40 daily, Synthroid 75 mcg daily, Coreg 12.5 p.o. b.i.d., Cordarone 200 daily, Lipitor 80 daily, Eliquis 5 mg p.o. b.i.d., Bumex 1 mg p.o. b.i.d., Lasix 40 b.i.d., potassium 10 mEq t.i.d., Tresiba 30 units at bedtime, metolazone 2.5 mg every 72 hours, Entresto 24/26 p.o. b.i.d., Januvia 50 daily, Imdur 30 mg in the morning, Levaquin 500 mg daily for 10 days. 2. Follow up with Dr. Garza for left leg peripheral arterial disease. I spoke to the patient's . The patient is adamant to go home. Obviously, he has tried to get out of the bed, had a fall and no external injuries noted. Resume the outpatient home health care with Layla. cc: MD Alli Mohamud MD Dr. Walker
== END 2019-04-09 13:32 | disposition home health service (06) | DRG 292 ==
LOC: SUPCPDRO → ED 03:04 → 3N 07:29
PROVIDERS: ADMIT Internal Medicine; ATTEND Internal Medicine
CPT/HCPCS: 71010; 71020; 71045; 71046; 75635; 76770; 80048; 80053; 82550; 82805; 82948; 83036; 83735; 83880; 84443; 84484; 85025; 85610; 85730; 87070; 87077; 87186; 93005; 93306; 93923; 94640; 94761; 96374; 96375; 99285; A9270; C8929; J0878; J1815; J1940; J7050; Q9957; Q9967; S0171; XXXXX

== ENCOUNTER 2019-05-02 07:18 | Day surgery (SDC) ==
--- NOTE | 2019-04-29 10:55 | EKG Report ---
Test Performed on : 04/29/2019 10:45:42 AM Test Reason : PAT Blood Pressure : / mmHG Vent. Rate : 084 BPM Atrial Rate : 084 BPM P-R Int : 000 ms QRS Dur : 120 ms QT Int : 386 ms P-R-T Axes : 000 061 -67 degrees QTc Int : 456 ms Suspect Normal sinus rhythm. with 1st degree AV block. with occasional premature ventricular complexe s. - P waves are difficult to determine, this cannont rule out accelerated junctional rhythm Incomplete left bundle branch block ST & T wave abnormality, consider inferolateral ischemia Abnormal ECG When compared with ECG of 30-MAR-2019 03:11, (Unconfirmed) No significant change was found Confirmed by Mars Tao MD ([id number]) on 05/02/2019 7:48:41 AM
[2019-04-29 11:15] LABS: HEMATOCRIT 39.5 % (42.0-52.0); HEMOGLOBIN 12.4 g/dL (14.0-18.0); MCH 24.7 PG (27-31); MCHC 31.4 g/dL (33-37); MCV 78.7 FL (81-99); MPV 11.7 FL (7.4-10.4); RBC 5.02 XMIL (4.7-6.1); RDW 19.6 % (11.5-14.5); WBC 12.76 X1000 (4.8-10.8)
[2019-04-29 11:44] LABS: CALCIUM 9.5 mg/dL (8.8-10.2); CREATININE 1.6 mg/dL (0.7-1.2); POTASSIUM 4.1 mmol/L (3.5-5.1)
[2019-05-02] MEDS ORDERED: LR 0 ML ONE (07:40)
[2019-05-02] MEDS ORDERED: PEPCID ONE (07:40)
[2019-05-02] MEDS ORDERED: KEFZOL 1 GM/D5W 1 GM/50 ML IVPB ONE (07:40)
[2019-05-02] MEDS ORDERED: LR 500 ML ONE (07:41)
[2019-05-02] MEDS ORDERED: HUMULIN R ONE (08:04)
[2019-05-02] MEDS ORDERED: HEPARIN ONE ×2 (09:24)
[2019-05-02] MEDS ORDERED: NS 2,000 ML ONE (09:25)
[2019-05-02] MEDS ORDERED: AMIDATE ONE (09:33)
[2019-05-02] MEDS ORDERED: ZEMURON ONE (09:52)
[2019-05-02] MEDS ORDERED: OFIRMEV 1000 MG/ISOTONIC SOLN 1,000 MG/100 ML BOTTLE ONE (09:56)
[2019-05-02] MEDS ORDERED: ZOFRAN ONE (09:56)
[2019-05-02] MEDS ORDERED: HEPARIN (DOSE) ONE (10:04)
[2019-05-02] MEDS ORDERED: XYLOCAINE-MPF 2% ONE (10:06)
[2019-05-02 10:26] LABS: URINE SOURCE CATH
[2019-05-02 10:28] LABS: BILIRUBIN URINE NEGATIVE (NEGATIVE); BLOOD URINE TRACE (NEGATIVE); COLOR YELLOW; GLUCOSE URINE 500 mg/dL (NEGATIVE); KETONE URINE NEGATIVE (NEGATIVE); LEUKOCYTES URINE NEGATIVE (NEGATIVE); NITRITE URINE NEGATIVE (NEGATIVE); PROTEIN URINE 50 mg/dL (NEGATIVE); SP GRAVITY URINE 1.018; TURBIDITY URINE CLEAR (CLEAR); UROBILINOGEN URINE NORMAL (NORMAL)
[2019-05-02 10:29] LABS: UR EPITHELIAL CELLS <10 /HPF (<10); URINE BACTERIA NEGATIVE /HPF; URINE RBC <10 /HPF (<10); URINE WBC <10 /HPF (<10)
[2019-05-02] MEDS ORDERED: NEOSTIGMINE ONE (10:32)
[2019-05-02] MEDS ORDERED: ROBINUL ONE (10:32)
[2019-05-02] MEDS ORDERED: LR 1,000 ML ONE (11:15)
[2019-05-02] MEDS ORDERED: LR 1,000 ML IV SCH (11:59)
[2019-05-02] MEDS ORDERED: NITROGLYCERIN SL PRN (11:59)
[2019-05-02] MEDS ORDERED: ZOFRAN IV PRN (11:59)
[2019-05-02] MEDS ORDERED: ZAROXOLYN PO SCH (11:59)
[2019-05-02] MEDS ORDERED: NORCO-10 PO PRN (11:59)
[2019-05-02] MEDS ORDERED: INSULIN PEN NEEDLES ONE (13:35)
[2019-05-02] MEDS: KLOR-CON PO SCH ×2 (13:53→21:20)
--- NOTE | 2019-05-02 14:25 | OPERATIVE NOTE ---
PROCEDURE DATE: 05/02/2019 PROCEDURES PERFORMED: 1. Left femoral artery access with ultrasound guidance, antegrade approach. 2. Left femoral popliteal arteriogram. 3. Failed attempt to cross the chronic total occlusion of the distal superficial femoral artery. SURGEON: Néstor Garza MD. BIOSTATISTICIAN: Claudia. PREOPERATIVE DIAGNOSIS: Distal left SFA occlusion with ulceration of the left foot. POSTOPERATIVE DIAGNOSIS: Distal left SFA occlusion with ulceration of the left foot. DESCRIPTION OF PROCEDURE: Satisfactory general anesthesia was achieved. The right groin, left groin, and left leg were prepped and draped in a sterile fashion. We imaged the proximal left superficial femoral artery and accessed the artery antegrade approach Seldinger technique. We passed a wire followed by a 7-Spanish sheath. 5000 units of heparin were given. We then shot an arteriogram, revealing total occlusion at the adductor canal with reconstitution in the distal popliteal artery. We then passed a Glidewire which we could not traverse the occlusion. We then used a Trailblazer, and attempted to cross the occlusion but got subintimal. We never could get back in the [place] lumen of the distal popliteal artery so we aborted further attempts. We removed our TrailBlazer and Glidewire, and used a Mynx closure according to manufacture's specifications to plug the hole in the artery. Sterile pressure was held for 5 minutes. A sterile pressure bandage was applied to the puncture site. Total blood loss was 10 mL. Contrast given was 36 mL. He tolerated the procedure satisfactory, and was sent to recovery room in satisfactory condition. cc: Néstor Garza MD
[2019-05-02] MEDS ORDERED: ZAROXOLYN PO PRN ×2 (16:32→16:33)
[2019-05-02] MEDS ORDERED: TRESIBA FLEXTOUCH U-100 SUBQ SCH (21:00)
[2019-05-02] MEDS: PERIDEX MT SCH (21:17)
[2019-05-02] MEDS: BUMEX PO SCH (21:17)
[2019-05-02] MEDS: LASIX PO SCH (21:17)
[2019-05-03] MEDS ORDERED: SYNTHROID PO SCH (07:00)
[2019-05-03] MEDS ORDERED: PROTONIX PO SCH (07:00)
[2019-05-03] MEDS: KLOR-CON PO SCH ×2 (08:46→12:33)
[2019-05-03] MEDS: BUMEX PO SCH (08:46)
[2019-05-03] MEDS: LASIX PO SCH (08:46)
[2019-05-03] MEDS: PERIDEX MT SCH (08:46)
[2019-05-03] MEDS ORDERED: CORDARONE PO SCH (09:00)
[2019-05-03] MEDS ORDERED: ASPIRIN EC PO SCH (09:00)
[2019-05-03] MEDS ORDERED: IMDUR PO SCH (09:00)
[2019-05-03] MEDS ORDERED: JANUVIA PO SCH (09:00)
[2019-05-03 12:04] VITALS: BP 118/44
--- NOTE | 2019-05-03 18:08 | GENERAL SURGERY PROGRESS NOTE ---
DATE: 05/03/2019 SUBJECTIVE: He is postoperative day 1 after left femoral artery access, but a failed attempt across chronic total occlusion. OBJECTIVE: He is doing well. The puncture site is fine. There is no evidence of hematoma. ASSESSMENT AND PLAN: We will map his greater saphenous vein and lesser saphenous vein today in preparation for a bypass. We will discharge him today and set up the time for his return visit. cc: Néstor Garza MD
--- NOTE | 2019-05-03 18:50 | VASCULAR LAB ---
DATE: 05/03/2019 BILATERAL LOWER EXTREMITY LESSER SAPHENOUS VEIN EVALUATION REFERRING PHYSICIAN: Néstor Garza MD. INDICATION: Possible arterial bypass grafting. FINDINGS: The right small saphenous vein posteriorly in the right leg was compressible without evidence of thrombus. It measured 3.3 to 3.7 mm in dimension. The left small saphenous vein, posterior left leg, had some chronic clot mid left calf. This was a larger vein and had flow through it measuring 4.1 to 4.7 mm in greatest dimension. cc: MD Néstor Villa MD
[2019-05-03] MEDS ORDERED: LIPITOR PO SCH (21:00)
[2019-05-03] MEDS ORDERED: ELIQUIS PO SCH (21:00)
== END 2019-05-03 13:56 | disposition home or self-care (01) ==
LOC: PAT 07:18 → OPS 07:18 → INTOOBSV 11:53 → 4N 11:53 → OPS 05-03 13:56
PROVIDERS: ATTEND Surgery
CPT/HCPCS: 36140; 80048; 81001; 82948; 85027; 86850; 86900; 86901; 93005; 93010; 93970; 94761; 94799; A9270; C1760; J0131; J0690; J1644; J2405; J7030; J7120; Q9967; XXXXX

== ENCOUNTER 2019-05-21 05:28 | Inpatient (IN) ==
[2019-05-21] MEDS ORDERED: KEFZOL 1 GM/D5W 1 GM/50 ML IVPB ONE (09:15)
[2019-05-21] MEDS ORDERED: LR 500 ML ONE (09:15)
[2019-05-21] MEDS ORDERED: SUFENTA ONE (11:51)
[2019-05-21] MEDS ORDERED: QUELICIN (DOSE) ONE (11:58)
[2019-05-21] MEDS ORDERED: NS 2,000 ML ONE (12:02)
[2019-05-21] MEDS ORDERED: KEFZOL ONE (12:02)
[2019-05-21] MEDS ORDERED: HEPARIN ONE ×2 (12:02)
[2019-05-21] MEDS ORDERED: SENSORCAINE 0.25%/EPI 1:200,000 ONE (14:09)
[2019-05-21] MEDS ORDERED: LR 1,000 ML ONE (14:35)
[2019-05-21] MEDS: DILAUDID ONE ×2 (14:57→15:15)
[2019-05-21] MEDS ORDERED: NORCO-5 ONE (14:58)
--- NOTE | 2019-05-21 15:14 | OPERATIVE NOTE ---
PROCEDURE DATE: 05/21/2019 PROCEDURE PERFORMED: 1. Left distal popliteal exposure. 2. Open left femoral popliteal atherectomy with a S HawkOne atherectomy catheter followed by a drug coated balloon angioplasty using a 5 mm x 8 cm N.PACT balloon. SURGEON: Néstor Garza MD. QUALITY ASSURANCE QA LAB TECHNICIAN: Kinsey. PREOPERATIVE DIAGNOSIS: Left leg atherosclerosis with ulceration distal superficial femoral artery and popliteal occlusion. POSTOP DIAGNOSIS: Left leg atherosclerosis with ulceration distal superficial femoral artery and popliteal occlusion. INDICATION: 64-year-old who we had previously attempted to cross the chronic total occlusion in the distal SFA from an antegrade approach we failed to do so, so we had him set up for a bypass using his right lesser saphenous vein. However we chose to cut down on his distal popliteal and try retrograde approach to the occlusion before defaulting to the bypass. Satisfactory general endotracheal anesthesia was achieved. Both groins, both legs were prepped and draped in a sterile fashion. The right lesser saphenous vein had been preoperatively mapped. We made a longitudinal incision in the proximal medial calf, dissected through the subcutaneous tissue and into the popliteal space. We dissected out the distal popliteal surrounded with small vessel loop. 5000 units of heparin were given. We used a needle and punctured the artery and passed a wire followed by a 6-Danish sheath. We shot a retrograde arteriogram and this showed the occlusion in the distal SFA and popliteal. We used a Glidewire and passed it up to the occlusion then used a Trailblazer and crossed the occlusion into the proximal [place] lumen. We verified that by removing the wire and shooting contrast through the TrailBlazer. We then switched to an 0.14 Nitrex wire and obtained a HawkOne S catheter which went up to a 4 mm vessel and we treated the occlusion which was about 5 to 6 cm long. Upon completion of the treatment at 4 quadrants we had a lumen. It was not as good as I hoped and I treated it again distally and obtained a better lumen. We then obtained a 5 mm x 8 cm IN.PACT drug coated balloon passed it across the area of the occlusion and ballooned it to 8 atmospheres which is nominal pressures for 3 minutes. Completion arteriography showed significant improvement to the patency. There was some question of a small dissection in the popliteal region so we replaced our balloon and ballooned it again and this laid the intima down nicely and no further evidence of the dissection. We shot a retrograde arteriogram again more in the mid SFA and it was somewhat narrowed so we passed our balloon up there and ballooned it for 1 minute in the mid SFA. Completion arteriograms then showed complete resolution of the stenoses in the SFA and popliteal, no evidence of dissection and significant improvement in the collateralization with them almost disappearing. We then used a 6- 0 Prolene [id number] stitch x2 to close the arteriotomy. A pulse was noted within the distal popliteal. Hemostasis was satisfactory. We then closed the subcutaneous tissue with interrupted 3-0 Polysorb. We injected with 0.5 Marcaine with epinephrine for local pain relief and then closed the skin with a 4-0 Polysorb subcuticular stitch. An island dressing was applied. He tolerated it well. 100 mL of contrast was used. 25 mL of blood was lost. He was sent to the recovery room in stable condition. cc: Néstor Garza MD
[2019-05-21] MEDS ORDERED: NITROGLYCERIN SL SCH (15:54)
[2019-05-21] MEDS ORDERED: ZAROXOLYN PO SCH ×2 (15:54→17:00)
[2019-05-21] MEDS: LR 1,000 ML IV SCH (16:00)
[2019-05-21] MEDS: KLOR-CON PO SCH (16:55)
[2019-05-21 17:48] LABS: URINE SOURCE CATH
[2019-05-21 18:10] LABS: BILIRUBIN URINE NEGATIVE (NEGATIVE); BLOOD URINE SMALL (NEGATIVE); COLOR YELLOW; GLUCOSE URINE 500 mg/dL (NEGATIVE); KETONE URINE 10 mg/dL (NEGATIVE); LEUKOCYTES URINE NEGATIVE (NEGATIVE); NITRITE URINE NEGATIVE (NEGATIVE); PH URINE 5.5; PROTEIN URINE 50 mg/dL (NEGATIVE); TURBIDITY URINE CLEAR (CLEAR); UROBILINOGEN URINE NORMAL (NORMAL)
[2019-05-21 18:11] LABS: UR EPITHELIAL CELLS <10 /HPF (<10); URINE BACTERIA NEGATIVE /HPF; URINE WBC <10 /HPF (<10)
[2019-05-21] MEDS: BUMEX PO SCH (20:37)
[2019-05-21] MEDS: LASIX PO SCH (20:37)
[2019-05-21] MEDS: ENTRESTO 24 MG-26 MG TABLET PO SCH (20:37)
[2019-05-21] MEDS: TRESIBA FLEXTOUCH U-100 SUBQ SCH (20:37)
[2019-05-22] MEDS: MORPHINE IV PRN ×3 (02:26→20:17)
[2019-05-22] MEDS: NORCO-10 PO PRN (03:21)
[2019-05-22 05:45] LABS: BASO# 0.01 X1000 (0.0-0.2); BASO% 0.1 % (0.0-0.8); HEMATOCRIT 35.5 % (42.0-52.0); IMM GRAN# 0.03 X1000 (0.0-0.04); IMM GRAN% 0.3 % (0.0-0.5); LYMPH# 0.31 X1000 (1.2-3.4); LYMPH% 3.4 % (20.5-51.1); MCH 25.5 PG (27-31); MCV 82.2 FL (81-99); MONO# 0.34 X1000 (0.11-0.59); MONO% 3.7 % (1.7-9.3); MPV 11.2 FL (7.4-10.4); NEUT# 8.49 X1000 (1.4-6.5); NEUT% 92.5 % (42.2-75.2); PLT 359 X1000 (130-400); RBC 4.32 XMIL (4.7-6.1); RDW 19.9 % (11.5-14.5); WBC 9.18 X1000 (4.8-10.8)
[2019-05-22 05:52] LABS: CALCIUM 9.7 mg/dL (8.8-10.2); CREATININE 1.3 mg/dL (0.7-1.2); POTASSIUM 4.6 mmol/L (3.5-5.1)
[2019-05-22] MEDS: SYNTHROID PO SCH (06:22)
[2019-05-22 07:23] LABS: BANDS 2 % (0-1); LARGE PLATELETS 1+; LYMPHS 3 % (21-51); MONO 3 % (1-9); SEGS 91 % (42-75)
[2019-05-22] MEDS: LIPITOR PO SCH (08:13)
[2019-05-22] MEDS: KLOR-CON PO SCH ×3 (08:14→17:40)
[2019-05-22] MEDS: LASIX PO SCH ×2 (08:14→20:11)
[2019-05-22] MEDS: ASPIRIN EC PO SCH (08:14)
[2019-05-22] MEDS: PROTONIX PO SCH (08:14)
[2019-05-22] MEDS: CORDARONE PO SCH (08:14)
[2019-05-22] MEDS: BUMEX PO SCH ×2 (08:14→20:11)
[2019-05-22] MEDS: ENTRESTO 24 MG-26 MG TABLET PO SCH ×2 (08:14→20:11)
[2019-05-22] MEDS: IMDUR PO SCH (08:14)
[2019-05-22] MEDS: LR 1,000 ML IV SCH ×2 (08:14→23:40)
[2019-05-22] MEDS: JANUVIA PO SCH (08:14)
[2019-05-22] MEDS ORDERED: PLAVIX PO ONE (17:56)
--- NOTE | 2019-05-22 19:44 | GENERAL SURGERY PROGRESS NOTE ---
DATE: 05/22/2019 TIME: 5:55 p.m. Mr. Duong is doing generally well. He is afebrile with stable hemodynamics. He denies any dyspnea. White count is 9000, hemoglobin 11, hematocrit 35. Chemistry shows a BUN of 29, creatinine of 1.3. I think he is progressing satisfactorily. His bandage is dry and his foot is warm. We will plan to move him up to a regular room today, and hopefully plan for discharge on 05/23/2019. cc: Néstor Garza MD
[2019-05-22] MEDS: TRESIBA FLEXTOUCH U-100 SUBQ SCH (20:12)
[2019-05-22] MEDS: ZOFRAN IV PRN (21:25)
[2019-05-23] MEDS: LR 1,000 ML IV SCH ×2 (01:40→17:30)
[2019-05-23] MEDS: MORPHINE IV PRN ×2 (03:55→09:07)
[2019-05-23] MEDS: PROTONIX PO SCH ×2 (05:15→06:23)
[2019-05-23] MEDS: SYNTHROID PO SCH ×2 (05:15→06:23)
[2019-05-23] MEDS: IMDUR PO SCH (08:55)
[2019-05-23] MEDS: CORDARONE PO SCH (08:55)
[2019-05-23] MEDS: JANUVIA PO SCH (08:55)
[2019-05-23] MEDS: LIPITOR PO SCH (08:55)
[2019-05-23] MEDS: LASIX PO SCH ×2 (08:55→23:16)
[2019-05-23] MEDS: KLOR-CON PO SCH ×3 (08:55→17:30)
[2019-05-23] MEDS: ASPIRIN EC PO SCH (08:55)
[2019-05-23] MEDS: ENTRESTO 24 MG-26 MG TABLET PO SCH ×2 (08:55→20:47)
[2019-05-23] MEDS ORDERED: PLAVIX PO SCH (09:00)
[2019-05-23] MEDS: BUMEX PO SCH ×2 (09:07→23:16)
--- NOTE | 2019-05-23 19:24 | GENERAL SURGERY PROGRESS NOTE ---
DATE: 05/23/2019 SUBJECTIVE: Mr. Duong is doing generally well. He is afebrile was satisfactory hemodynamics. His sugar is reasonable. He is requested consideration for rehabilitation, so we will seek a [employer] assistance in finding a rehab bed for him. cc: Néstor Garza MD
[2019-05-23] MEDS: NORCO-10 PO PRN (20:47)
[2019-05-23] MEDS: TRESIBA FLEXTOUCH U-100 SUBQ SCH (20:49)
[2019-05-23] MEDS: ZOFRAN IV PRN (22:58)
[2019-05-24] MEDS: SYNTHROID PO SCH (06:23)
[2019-05-24] MEDS: PROTONIX PO SCH (06:23)
[2019-05-24] MEDS: IMDUR PO SCH (09:27)
[2019-05-24] MEDS: LIPITOR PO SCH (09:27)
[2019-05-24] MEDS: LASIX PO SCH ×2 (09:27→21:22)
[2019-05-24] MEDS: JANUVIA PO SCH (09:27)
[2019-05-24] MEDS: KLOR-CON PO SCH ×3 (09:27→21:31)
[2019-05-24] MEDS: CORDARONE PO SCH (09:27)
[2019-05-24] MEDS: ENTRESTO 24 MG-26 MG TABLET PO SCH ×2 (09:28→21:22)
[2019-05-24] MEDS: BUMEX PO SCH ×2 (09:28→21:22)
[2019-05-24] MEDS: ASPIRIN EC PO SCH (09:28)
[2019-05-24] MEDS: LR 1,000 ML IV SCH (09:57)
[2019-05-24] MEDS: NORCO-10 PO PRN (10:07)
--- NOTE | 2019-05-24 11:28 | GENERAL SURGERY PROGRESS NOTE ---
DATE: 05/24/2019 Mr. Duong is afebrile. His wound is fine. He is asking for rehab placement in hopes that he can become ambulatory again. I will ask the social media project manager to see him. I also asked Dr. Peoples to see him since he is his regular physician. Will ask Physical Therapy to start assisting him as well. cc: Néstor Garza MD
--- NOTE | 2019-05-24 13:59 | Extremity Venous Study ---
PROCEDURE NAME: Vein Mapping Right GSV - 05/21/2019 STUDY: Right lesser saphenous vein mapping for bypass. EXAM FOR COMPARISON: 05/02/2019 REQUESTING PHYSICIAN: Néstor Garza MD MARKETING OPERATIONS INTERN: Nithya Beth RVT FINDINGS: At the popliteal fossa, zone 5 on the right is 2.7 mm, zone 6 is 2.9, zone 7 is 2.6, and zone 8 is 2.8. When compared to the previous, the diameters are slightly smaller than they were last time and would most likely be a marginal conduit. cc: MD Néstor Willis MD
[2019-05-24] MEDS: ZOFRAN IV PRN (16:49)
[2019-05-24] MEDS ORDERED: REGLAN IV ONE (17:22)
[2019-05-24] MEDS ORDERED: REGLAN IV PRN (17:22)
--- NOTE | 2019-05-24 19:23 | Diag Imaging Result Doc PS360 ---
EXAM: ABDOMEN FLAT/UPRIGHT HISTORY: pain TECHNIQUE: Flat and upright, two views COMPARISON: 09/18/2016 FINDINGS: No free air beneath the diaphragm. No bowel obstruction. There is stool throughout the colon. No organomegaly. There are pelvic phleboliths. Moderate degenerative spine changes. IMPRESSION: [id number] constipation. Electronically signed by Kuldip Talley 05/24/2019 7:21 PM
[2019-05-24] MEDS ORDERED: ZAROXOLYN PO SCH (21:00)
[2019-05-24] MEDS: ELIQUIS PO SCH (21:22)
[2019-05-24] MEDS: TRESIBA FLEXTOUCH U-100 SUBQ SCH (21:22)
--- NOTE | 2019-05-24 21:58 | CONSULTATION ---
DATE OF CONSULTATION: 05/24/2019 CHIEF COMPLAINT: Persistent nausea, abdominal pain since Monday. HISTORY OF PRESENT ILLNESS: He is a 64-year-old white gentleman who was asked to follow up postop medical evaluation for nausea. He is throwing up. He is not holding anything down. The patient was seen by Dr. Garza who did PAD workup on the left leg. Obviously, the patient had a left distal popliteal exposure, open left femoral popliteal atherectomy, followed by balloon angioplasty. Last bowel movement was 2 days ago. No abdominal pain. The patient was given some Reglan and a KUB was ordered with mild constipation. Denies any abdominal pain. He has also a known history of gastroparesis with underlying poorly controlled diabetes. PAST MEDICAL HISTORY: 1. Ischemic cardiomyopathy. 2. CAD. 3. Status post bypass surgery. 4. Type 2 diabetes. 5. Acid reflux disease. 6. Hypothyroidism. 7. PAF. 8. Sleep apnea. 9. Status post aortobifemoral bypass with peripheral arterial disease. PAST SURGICAL HISTORY: 1. Radiofrequency ablation in 2016. 2. Aortobifemoral bypass in 2004. 3. Tonsillectomy. 4. Bypass surgery. MEDICATIONS: 1. Aspirin 81 mg daily. 2. Protonix 40 daily. 3. Synthroid 75 mcg daily. 4. Cordarone 200 daily. 5. Eliquis 5 mg p.o. b.i.d. 6. Bumex 1 mg p.o. b.i.d. 7. Lasix 40 p.o. b.i.d. 8. Potassium 10 mEq t.i.d. 9. Lipitor 80 mg in the morning. 10. Tresiba 30 units at bedtime. 11. Metolazone 2.5 every 72 hours. 12. Entresto 24/26 p.o. b.i.d. 13. Januvia 50 mg daily. 14. Isosorbide 30 mg daily. 15. Percocet as needed. ALLERGIES: Not known. SOCIAL HISTORY: . One child. Disabled. No smoking. No alcohol. Living in [place]. FAMILY HISTORY: Father of heart attack at 60. Mom of heart attack at 56. Living Will; Do Not Resuscitate. REVIEW OF SYSTEMS: HEENT: No headache. No vision problem. No earache. No sore throat. Neck: No goiter. No lymphadenopathy. No bruit. Cardiopulmonary: No chest pain, shortness of breath, PND, orthopnea. GI: Nausea. No abdominal pain, constipation. : Singh was placed and recently had surgery. Extremities: He has multiple ulcers in the left leg. Decreased pulses. No signs of discoloration. Neurological: No neurological symptoms. PHYSICAL EXAMINATION: Vital Signs: Temperature is 98 degrees, pulse 68, blood pressure is stable, 4 L nasal cannula 97%. HEENT: Atraumatic, normocephalic. Pupils equal, reacting to light. Neck: Supple. Chest: Bilateral air entry. Heart: Distant heart sounds. Abdomen: Belly is soft, nontender. Extremities: He has multiple ulcers on the left leg, slowly healing. No signs of gangrene. Neurologic: No obvious neurological deficits. INVESTIGATIONS: 05/22/2019: White cell count 9.9, hematocrit 35, platelets 359,000. Sodium 133, potassium 4.6, BUN 29, creatinine 1.3. Abdominal x-ray: Mild to moderate constipation. ASSESSMENT AND PLAN: 1. A 64-year-old white gentleman with complicated diabetes, underlying peripheral artery disease and coronary artery, paroxysmal atrial fibrillation, pretty much declining of activities of daily living, status post left popliteal artery atherectomy, doing very well with nausea. He has known history of Reglan. The patient is on intravenous fluids, very gentle. 2. Intravenous Reglan. We will also give some Dulcolax. 3. Paroxysmal atrial fibrillation, on Cordarone and Eliquis. 4. Hyperlipidemia, on Lipitor. 5. Type 2 diabetes, on Tresiba and Januvia. 6. Continue on Protonix. 7. Ischemic cardiomyopathy with congestive heart failure. Entresto twice daily. 8. Hypothyroidism, on Synthroid. 9. Will check the labs in the morning. 10. Rest Room Attendant consult for rehab placement. I appreciated Dr. Garza's efforts to restore the blood flow in the left leg, and will follow up. Dr. Albert is on-call this weekend. cc: MD Néstor Mohamud MD
[2019-05-25] MEDS: LR 1,000 ML IV SCH ×3 (01:27→21:05)
[2019-05-25] MEDS: SYNTHROID PO SCH (06:15)
[2019-05-25] MEDS: PROTONIX PO SCH (06:15)
[2019-05-25 07:17] LABS: BASO# 0.04 X1000 (0.0-0.2); BASO% 0.5 % (0.0-0.8); EOS# 0.18 X1000 (0.0-0.7); EOS% 2.1 % (0.0-10.0); HEMATOCRIT 37.4 % (42.0-52.0); HEMOGLOBIN 11.6 g/dL (14.0-18.0); IMM GRAN# 0.03 X1000 (0.0-0.04); IMM GRAN% 0.4 % (0.0-0.5); LYMPH# 0.72 X1000 (1.2-3.4); LYMPH% 8.5 % (20.5-51.1); MCV 83.7 FL (81-99); MONO# 0.61 X1000 (0.11-0.59); MONO% 7.2 % (1.7-9.3); MPV 11.3 FL (7.4-10.4); NEUT# 6.86 X1000 (1.4-6.5); NEUT% 81.3 % (42.2-75.2); PLT 328 X1000 (130-400); RBC 4.47 XMIL (4.7-6.1); RDW 20.2 % (11.5-14.5); WBC 8.44 X1000 (4.8-10.8)
[2019-05-25 07:29] LABS: CALCIUM 9.3 mg/dL (8.8-10.2); POTASSIUM 3.5 mmol/L (3.5-5.1)
[2019-05-25] MEDS: KLOR-CON PO SCH ×3 (08:57→17:01)
[2019-05-25] MEDS: BUMEX PO SCH ×2 (08:57→21:04)
[2019-05-25] MEDS: ASPIRIN EC PO SCH (08:57)
[2019-05-25] MEDS: JANUVIA PO SCH (08:57)
[2019-05-25] MEDS: IMDUR PO SCH (08:57)
[2019-05-25] MEDS: LASIX PO SCH ×2 (08:57→21:03)
[2019-05-25] MEDS: ELIQUIS PO SCH ×2 (08:57→21:03)
[2019-05-25] MEDS: CORDARONE PO SCH (08:57)
[2019-05-25] MEDS: LIPITOR PO SCH (08:57)
[2019-05-25] MEDS: ENTRESTO 24 MG-26 MG TABLET PO SCH ×2 (08:57→21:03)
--- NOTE | 2019-05-25 12:04 | PROGRESS NOTE ---
DATE: 05/25/2019 SUBJECTIVE: The patient is a 64-year-old white man who had a surgical procedure by Dr. Garza yesterday to open up his femoral artery. Angioplasty was done successfully. His leg is sore, but color in his foot is better. Dr. Peoples saw him yesterday. History indicates atrial fibrillation, diabetes, coronary artery disease, peripheral vascular disease, hypothyroidism. LABORATORY DATA: This morning reveals sodium to be 137, potassium 3.5, BUN 40, creatinine 2.0, glucose 139, calcium 9.3, hemoglobin 11.6, hematocrit 37.4, white blood count 8400. Atrial fibrillation was initially documented. Rhythm now appears to be sinus. Heart rate and pulse irregular. PLAN: Rehab, continue current medicines, and physical therapy. Appetite was poor this morning and he has some nausea. He feels this is related to the anesthesia yesterday. He is on Reglan IV p.r.n. and Zofran. He also is on Protonix. cc: MD Néstor Tamayo MD
--- NOTE | 2019-05-25 13:21 | GENERAL SURGERY PROGRESS NOTE ---
DATE: 05/25/2019 SUBJECTIVE: Doing okay. Minimal pain in his foot. Incision is intact. His foot is warm. I cannot clearly palpate his pulses. He does have some clean ulcers on his foot. I reviewed his labs. PLAN: We will remove his Singh catheter and increase his mobility. He is on appropriate medications. We will continue to follow. cc: MD Néstor Willis MD
[2019-05-25] MEDS ORDERED: INSULIN PEN NEEDLES ONE (20:58)
[2019-05-25] MEDS: TRESIBA FLEXTOUCH U-100 SUBQ SCH (21:04)
[2019-05-25] MEDS: DULCOLAX PR SCH (21:04)
[2019-05-26] MEDS: SYNTHROID PO SCH (06:30)
[2019-05-26] MEDS: PROTONIX PO SCH (06:30)
--- NOTE | 2019-05-26 08:59 | PROGRESS NOTE ---
DATE: 05/26/2019 VITAL SIGNS: Temperature 99 degrees, heart rate 76, respiration 18, blood pressure 126/51, O2 saturation on 3 L nasal oxygen 100%. Patient uses O2 at home, 4 L nasal cannula. SUBJECTIVE: His left leg continues to be sore from his surgery. Nausea has resolved. Plan is for rehab early next week. Sugar was 171. He is on insulin 30 units Tresiba at bedtime. He continues to have atrial fibrillation, rate controlled. cc: MD Néstor Tamayo MD
[2019-05-26] MEDS: ELIQUIS PO SCH ×2 (09:29→21:16)
[2019-05-26] MEDS: JANUVIA PO SCH (09:30)
[2019-05-26] MEDS: KLOR-CON PO SCH ×3 (09:30→16:34)
[2019-05-26] MEDS: BUMEX PO SCH (09:30)
[2019-05-26] MEDS: ENTRESTO 24 MG-26 MG TABLET PO SCH (09:30)
[2019-05-26] MEDS: LASIX PO SCH (09:30)
[2019-05-26] MEDS: ASPIRIN EC PO SCH (09:30)
[2019-05-26] MEDS: LIPITOR PO SCH (09:30)
[2019-05-26] MEDS: CORDARONE PO SCH (09:30)
[2019-05-26] MEDS: IMDUR PO SCH (09:30)
[2019-05-26 10:50] LABS: CALCIUM 9.3 mg/dL (8.8-10.2); CREATININE 2.2 mg/dL (0.7-1.2); POTASSIUM 3.7 mmol/L (3.5-5.1)
[2019-05-26] MEDS: LR 1,000 ML IV SCH (13:17)
--- NOTE | 2019-05-26 14:30 | GENERAL SURGERY PROGRESS NOTE ---
DATE: 05/26/2019 SUBJECTIVE: Feels okay. Legs are still weak but no significant pain. OBJECTIVE: On exam, his leg is well perfused. He has clean ulcers. His incision is intact with no hematoma. I reviewed his medications. He is on Eliquis and aspirin. I have held his diuretics given his creatinine is up from his baseline even up slightly from yesterday and in the setting of recent contrast. On the , it was 1.3 up to 2, up to 2.2 today. He is on LR at 50. The remainder of his electrolytes seem okay. ASSESSMENT AND PLAN: This is a 64-year-old gentleman status post nephrectomy by Dr. Garza. We will continue physical therapy rehab placement. We will follow his renal function. I have held his diuretics today. We will be judicious with his fluids. If his renal function worsens, we may need to get Nephrology involved. Otherwise, we will continue to follow along. cc: MD Néstor Willis MD
[2019-05-26] MEDS: NORCO-10 PO PRN (21:16)
[2019-05-26] MEDS: ZOFRAN IV PRN (21:17)
[2019-05-26] MEDS: TRESIBA FLEXTOUCH U-100 SUBQ SCH (21:17)
[2019-05-26] MEDS: DULCOLAX PR SCH (21:18)
[2019-05-27] MEDS: NORCO-10 PO PRN (02:57)
[2019-05-27] MEDS: LR 1,000 ML IV SCH (06:00)
[2019-05-27] MEDS: PROTONIX PO SCH (06:01)
[2019-05-27] MEDS: SYNTHROID PO SCH (06:01)
[2019-05-27] MEDS: ASPIRIN EC PO SCH (08:39)
[2019-05-27] MEDS: ELIQUIS PO SCH (08:39)
[2019-05-27] MEDS: KLOR-CON PO SCH ×2 (08:39→14:20)
[2019-05-27] MEDS: LIPITOR PO SCH (08:39)
[2019-05-27] MEDS: JANUVIA PO SCH (08:39)
[2019-05-27] MEDS: IMDUR PO SCH (08:39)
[2019-05-27] MEDS: CORDARONE PO SCH (08:39)
[2019-05-27 12:59] VITALS: BP 110/51
--- NOTE | 2019-05-27 13:57 | Diag Imaging Result Doc PS360 ---
EXAM: CHEST-PORTABLE HISTORY: discharge today to rehab TECHNIQUE: Chest single view COMPARISON: 05/16/2019 FINDINGS: The lungs are well expanded. The heart is mildly prominent. There are sternal wires and a left pacemaker. The vessels are not distended. There are no infiltrates. No effusion identified. IMPRESSION: No pulmonary edema on the current study. Electronically signed by Kuldip Talley 05/27/2019 1:54 PM
--- NOTE | 2019-05-27 14:00 | DISCHARGE SUMMARY ---
ADMISSION DATE: 05/21/2019 DISCHARGE DATE: 05/27/2019 HISTORY OF PRESENT ILLNESS: This is a 64-year-old gentleman referred to me with a left SFA occlusion and ulcers on his left foot. Our original try to go antegrade and across this occlusion was unsuccessful, so we brought him back this time in preparation to do a bypass. However, we were able to cut down on his distal popliteal and cross the occlusion retrograde and atherectomize it and balloon it. Postop, he has done generally well. He wanted to go to rehab so we kept him in the hospital to try to work out rehab for him. His other medical problems include ischemic cardiomyopathy, coronary artery disease, type 2 diabetes, gastroesophageal reflux disease, hypothyroidism, chronic atrial fibrillation, sleep apnea, and history of aortobifemoral bypass. PAST SURGICAL HISTORY: Previous surgeries include the aortobifemoral bypass 14 years ago, the radiofrequency ablation in 2017. He has had coronary bypass surgery as well and tonsillectomy. MEDICATIONS: Listed. ALLERGIES: He has no known drug allergies. SOCIAL HISTORY: He is and disabled. Denies smoking or alcohol. FAMILY HISTORY: Pertinent for coronary disease. REVIEW OF SYSTEMS: As noted above. HOSPITAL COURSE: His hospital course was really uneventful. After his revascularization, we observed him. His perfusion to his left leg seemed satisfactory. His ulcers were satisfactory. Dr. Peoples was consulted since he is his normal physician. He did bump his creatinine slightly, so we stopped his diuretic. We will have to check that as an outpatient. [facility] will go to [facility]. They will allow him to treat him as needed for his foot ulcers. He will return to see me in the office in a week. He will follow up with Dr. Peoples as well. cc: Néstor Garza MD
--- NOTE | 2019-05-27 14:58 | GENERAL SURGERY PROGRESS NOTE ---
DATE: 05/27/2019 Mr. Duong is doing generally well. He is afebrile. He has good hemodynamics. His white count is normal. BUN 39, creatinine 2.2. His wounds are doing satisfactorily. We will transfer him to rehab today and then he will return to see me in the office in followup. cc: Néstor Garza MD
== END 2019-05-27 16:36 | DRG 253 ==
LOC: SURHOLD 05:28 → ICU 15:52 → 2N 05-23 00:46
PROVIDERS: ADMIT Surgery; ATTEND Surgery

== ENCOUNTER 2019-05-30 18:40 | Inpatient (IN) ==
[2019-05-30] MEDS ORDERED: ROCEPHIN 1 GM in NS 50 ML IV ONE (19:19)
[2019-05-30] MEDS ORDERED: NS 1,000 ML IV ONE ×2 (19:19→19:35)
--- NOTE | 2019-05-30 19:24 | PROVIDER DOCUMENTATION ---
HPI-Male Problem - General Chief Complaint: Abnormal Lab[s] Stated Complaint: abnormal labs Time Seen by Provider: 05/30/19 19:01 Source: patient Allergies/Adverse Reactions: Patient Allergies Allergy/AdvReac Type Severity Reaction Status Date / Time No Known Allergies Allergy Verified 05/20/19 13:14 Home Medications: Home Medication List Medication Instructions Recorded Confirmed Last Taken Type Amiodarone [Cordarone] 1 tab PO DAILY 03/08/17 05/21/19 05/18/19 History 1 Aspirin [Ecotrin] 81 mg PO DAILY 03/08/17 05/21/19 05/15/19 History 81 Levothyroxine [Synthroid] 75 microgm PO DAILY 03/08/17 05/21/19 05/18/19 History 75 Pantoprazole [Protonix] 1 tab PO DAILY 03/08/17 05/21/19 05/18/19 History 1 Nitroglycerin [Nitrostat] 0.4 mg SL DIRECTED #30 tab.subl 06/12/17 05/21/19 Unknown Rx Apixaban [Eliquis] 5 mg PO BID 01/01/18 05/21/19 05/15/19 History 5 Bumetanide [Bumex] 1 mg PO BID 01/01/18 05/21/19 05/18/19 History 1 Potassium Chloride [Klor-Con 10] 10 meq PO TID 01/01/18 05/21/19 05/18/19 History 10 Atorvastatin Calcium [Lipitor] 80 mg PO QAM 03/30/19 05/21/19 05/18/19 History 80 Insulin Aspart [Novolog Flexpen] See Protocol SUBQ AC + HS 03/30/19 05/21/19 05/18/19 History Insulin Degludec [Tresiba 30 unit SQ QHS 03/30/19 05/21/19 05/18/19 History Flextouch U-100] 30 Isosorbide Mononitrate E.r. [Imdur] 30 mg PO QAM 03/30/19 05/21/19 05/18/19 History 30 Metolazone 2.5 mg PO Q72H 03/30/19 05/21/19 05/18/19 History 2.5 Sacubitril/Valsartan [Entresto 24 1 dose PO BID 03/30/19 05/21/19 05/18/19 History mg-26 mg Tablet] 1 Sitagliptin [Januvia] 50 mg PO QAM 03/30/19 05/21/19 05/18/19 History 50 Oxycodone HCl/Acetaminophen 1 ea PO Q6-8H PRN PRN #20 tab 05/27/19 Unknown Rx [Endocet 5-325 Tablet] - History of Present Illness-Male Nature of Presenting Problem: Patient is a 64 yowm who arrived via EMS from [facility]. States he has had urinary urgency since last night and they checked blood and urine sample today and told him he may have a "kidney infection"- sent him here for eval. He denies fever, back pain, n/v/d, or any other symptoms. At rehab post angioplasty- left leg. Had a Singh while in the hospital per pt, he was discharged from the hospital on 05/27/19. He is non-toxic in appearance. Review of Systems - Adult - REVIEW OF SYSTEMS - ADULT Constitutional: reports: no symptoms reported. denies: chills, fever Eyes: reports: no symptoms reported Ears, Nose, Mouth & Throat: reports: no symptoms reported Cardiovascular: reports: no symptoms reported Respiratory: reports: no symptoms reported Gastrointestinal: reports: no symptoms reported Genitourinary: reports: see HPI. denies: flank pain Musculoskeletal: reports: no symptoms reported Integumentary: reports: no symptoms reported Neurological: reports: no symptoms reported Psychiatric: reports: no symptoms reported Endocrine: reports: no symptoms reported Hematologic/Lymphatic: reports: no symptoms reported Allergic/Immunologic: reports: no symptoms reported All Other Systems: Reviewed and Negative Past History - Adult - PAST MEDICAL HISTORY-ADULT Review of Records: reports: Nursing Assessment Review, Medications Reviewed, Social history reviewed & non-contributory. Major Childhood Illnesses: reports: denies history Cardiovascular: reports: CAD, CHF, HTN, hyperlipidemia Respiratory: reports: sleep apnea Gastrointestinal: reports: GERD Obstetrical/Gynecological: reports: denies history Genitourinary: reports: denies history Musculoskeletal: reports: denies history Neurological: reports: denies history Endocrine/Immune: reports: Diabetes, thyroid disorder Other Conditions: reports: denies history - PRIOR SURGERIES/PROCEDURES Surgical/Procedure History: reports: CABG, tonsillectomy, other (vascular surgery bilateral legs) - IMMUNIZATION STATUS Childhood Immunizations: See Nurse Assessment Flu Vaccine: See Nurse Assessment - FAMILY HISTORY Family History: reviewed, not pertinent - SOCIAL HISTORY Smoking: non-smoker Physical Exam-General - PHYSICAL EXAM-ADULT Initial Vital Signs Reviewed: Yes - CONSTITUTIONAL General Appearance: alert, no apparent distress. negative: lethargic, slow to respond - EYES Eyes: PERRL/EOMI, pink conjunctivae - HEAD, EARS, NOSE, MOUTH & THROAT HENMT: normocephalic/atraumatic, moist mucous membranes - NECK Neck: full range of motion, supple, normal inspection - RESPIRATORY Respiratory: chest non-tender, no pleuratic chest pain, no respiratory distress, no accessory muscle use, wheezing (diffuse expiratory) - CARDIOVASCULAR Cardiovascular: regular rate, rhythm, no gallop, no murmur - GASTROINTESTINAL (ABDOMEN) Abdominal Exam: normal bowel sounds, non tender, soft. negative: distended, guarding, rigid, rebound, tenderness, mass - MUSCULOSKELETAL Back Exam: normal inspection, no CVA tenderness Extremity: pelvis stable, other (surgical incision noted to left leg, appears to be healing well) - SKIN Integumentary: normal color, warm/dry. negative: cyanosis, diaphoresis, jaundice, mottled, pallor - NEUROLOGIC Neurologic: grossly normal, no motor/sensory deficits - PSYCHIATRIC Psych/Mental Status: normal mood/affect, normal thought content, normal thought process, oriented x 3 Progress - PLAN OF CARE/RESULTS Progress/Plan/Lab Results: Vital Signs - 8 hr 05/30/19 18:56 Temperature 98.1 F Pulse Rate 87 Respiratory Rate 23 Blood Pressure 107/48 O2 Sat by Pulse Oximetry 100 Orders Category Date Time Status Admit - [facility] Routine AdmDCTranf 05/30/19 19:34 Active Admit - [facility] Routine AdmDCTranf 05/30/19 19:35 Active Activity - Strict Bedrest ORDERED Care 05/30/19 19:35 Active Call Admitting on Arrival AT ADMISSION Care 05/30/19 19:35 Active Nursing- Obtain EKG ONCE Care 05/30/19 19:19 Active Resuscitation Status Routine Care 05/30/19 19:35 Ordered Vital Signs Order ROUTINE Care 05/30/19 19:35 Active Z-Document. for Tele Applied ORDERED Care 05/30/19 19:35 Active Diabetic Diet Diet 05/30/19 19:36 Active CHEST-1 VIEW [RAD] Stat Exams 05/30/19 19:27 Completed BLOOD CULTURE [BLDCUL] Stat Lab 05/30/19 19:58 Received URINE CULTURE [RM] Routine Lab 05/30/19 19:41 Received 0.9% Sodium Chloride Inj [Ns] 1,000 ml Med 05/30/19 19:19 Active IV 75 mls/hr 0.9% Sodium Chloride Inj [Ns] 1,000 ml Med 05/30/19 19:35 Active IV 75 mls/hr Acetaminophen [Tylenol] Med 05/30/19 19:37 Active 650 mg PO Q6H PRN PRN CefTRIAXONE [Rocephin] 1 gm Med 05/30/19 19:19 Discontinued 0.9% Sodium Chloride Inj [Ns] 50 ml IV NOW Insulin Human Regular [Humulin R] Med 05/30/19 21:00 Active See Dose Instructions SUBQ 0700,1100,1600,2100 Ondansetron [Zofran] Med 05/30/19 20:01 Discontinued 4 mg IV NOW ONE Telemetry [OM.EQ] Routine Oth 05/30/19 19:35 Active EKG [EKG] Stat Ther 05/30/19 19:19 Ordered - REASSESSMENT Reassessment #1 Time Reassessed: 19:42 Status: other (Pt in agreement with admission plan.) - EKG 1 Time of EKG reading by physician:: 20:27 EKG Read and Signed by:: Avery Atkins EKG Interpretation (*Must complete 3 of following elements*): Abnormal Rate: 86 Rhythm: wide QRS, nonspecific intraventricular block ST Wave: normal - XRAY 1 XRAY Study: Chest ([facility] - [address], [address] [address] [facility] - [address] [place] [address] Department of Imaging Patient: BARON DANIELS Date: 05/30/19MR#: [id number] : 1955DM Status: REG ERAcct#: [id number] Age/Sex: 64/MRoom/Bed: Loc: ED Ordering Physician: Blair Sinclair Family Physician: Manisha Peoples MD Reason for Procedure: wheezing on exam, leukocytosis ___ Signed CHEST-1 VIEW - 05/30/2019 INDICATION: wheezing on exam, leukocytosis COMPARISON: 05/27/2019 FINDINGS: Stable pacemaker. Stable sternotomy changes. There is cardiomegaly and significant pulmonary vascular congestion. No infiltrates or definite edema. No pneumothorax or pleural effusion. IMPRESSION: Cardiomegaly and pulmonary vascular congestion. Electronically signed by Rogelio Sheth 05/30/2019 7:58 PM 05/30/191957 Interpreting Physician: Rogelio Sheth MD Dictated Date/Time: 05/30/191955 cc: Blair Sinclair; Manisha Peoples MD) - CONSULTS/PCP/HOSPITALIST Notification #1 *Consult/PCP/Hospitalist*: Dr. Albert Time Discussed: 19:35 Reason/Comments: admission- uti Consult Disposition: Admit (Requests that I enter basic admit orders and he will see pt tonight.) Departure - Departure Date of Disposition Decision: 05/30/19 Time of Disposition Decision: 19:24 DIAGNOSIS: UTI (urinary tract infection) Qualifiers: Urinary tract infection type: site unspecified Hematuria presence: without hematuria Qualified Code(s): N39.0 - Urinary tract infection, site not specified Disposition: ADMITTED INPATIENT 09 Certified Medical Emergency: Emergent Condition: Stable Referrals and Follow-Ups: Manisha Peoples MD [Primary Care Provider] - - Critical Care Note This patient required my direct & personal management of CC.: No Attestation - Physician/ MARJAN Attestation Patient care was provided by Advanced Practice Provider:: Yes Advanced Practice Provider:: Bliar Sinclair Advanced Practice Provider documentation review:: The Mid-level provider documentation, treatment plan and medical decision making was reviewed by the physician who agrees with all treatment and medical decision making by the MLP. The physician spent face to face time with patient:: No Advanced Practice Provider documentation review:: Supervising physician onsite and consulted in the evaluation and care of this patient. The physician did not have a face to face encounter with the patient.
[2019-05-30] MEDS ORDERED: TYLENOL PO PRN (19:37)
--- NOTE | 2019-05-30 20:00 | Diag Imaging Result Doc PS360 ---
CHEST-1 VIEW - 05/30/2019 INDICATION: wheezing on exam, leukocytosis COMPARISON: 05/27/2019 FINDINGS: Stable pacemaker. Stable sternotomy changes. There is cardiomegaly and significant pulmonary vascular congestion. No infiltrates or definite edema. No pneumothorax or pleural effusion. IMPRESSION: Cardiomegaly and pulmonary vascular congestion. Electronically signed by Rogelio Sheth 05/30/2019 7:58 PM
[2019-05-30] MEDS ORDERED: ZOFRAN IV ONE (20:01)
[2019-05-30] MEDS ORDERED: NITROGLYCERIN SL PRN (20:45)
[2019-05-30] MEDS ORDERED: ROCEPHIN 1 GM in NS 50 ML IV SCH (20:45)
[2019-05-30] MEDS ORDERED: BUMEX PO SCH (21:00)
[2019-05-30] MEDS ORDERED: HUMULIN R SUBQ SCH (21:00)
[2019-05-30] MEDS ORDERED: ENTRESTO 24 MG-26 MG TABLET PO SCH (21:00)
[2019-05-30] MEDS ORDERED: TRESIBA FLEXTOUCH U-100 SUBQ SCH (21:00)
[2019-05-30] MEDS ORDERED: ELIQUIS PO SCH (21:00)
[2019-05-30] MEDS ORDERED: HUMALOG SUBQ SCH (21:00)
--- NOTE | 2019-05-30 21:48 | HISTORY AND PHYSICAL ---
HISTORY OF PRESENT ILLNESS: This is the second recent [facility] admission for this 64-year- old, white man, patient of Dr. Peoples, [facility], discharged a couple of days ago after angioplasty of the left superficial femoral artery by Dr. Garza. He has some ulcers on his left foot which are healing. He has coronary artery disease and peripheral vascular disease. He had a Singh catheter from Monday to Monday. After going to rehab, he developed some fever and dysuria. He was brought to the emergency room, where he was found to have urinary tract infection and white blood count 18,000. Decision was made to put him in the hospital after cultures and intravenous antibiotics. PAST MEDICAL HISTORY: Recent hospitalization for left superficial femoral artery angioplasty by Dr. Garza last week. There is history of ischemic cardiomyopathy, coronary artery disease, type 2 diabetes, gastroesophageal reflux disease, hypothyroidism, chronic atrial fibrillation, sleep apnea, and history of aortofemoral bypass. He had aortofemoral bypass 14 years ago and radiofrequency ablation in 2017. Other surgery includes coronary artery bypass and tonsillectomy. CURRENT MEDICATIONS: Amiodarone 200 mg daily, Eliquis 5 mg b.i.d., aspirin 81 mg daily, atorvastatin 80 mg q. morning, Bumex 1 mg b.i.d., isosorbide mononitrate 30 mg q. morning, levothyroxine 75 mcg daily, Zofran p.r.n., Tresiba 30 units at bedtime, aspartate insulin 6 units subcutaneous before meals and at bedtime, Zaroxolyn 2.5 mg q.72 hours, nitroglycerin sublingual p.r.n. chest pain, Protonix 40 mg 1 daily, Entresto b.i.d., and Januvia 50 mg q. morning. ALLERGIES: None known. REVIEW OF SYSTEMS: Unremarkable, except for the above. PHYSICAL EXAMINATION: VITAL SIGNS: Temperature 98.1 degrees, heart rate 87, respirations 23, blood pressure 107/48, O2 saturation on 3 L nasal oxygen 100%. He uses nasal oxygen chronically as an outpatient. HEENT: Pupils are equal, round, and reactive to light. Tympanic membranes without inflammation. Pharynx benign. NECK: Supple with no mass or lymphadenopathy. There is no carotid bruit. HEART: Irregular in rate and rhythm with no murmur or gallop. LUNGS: Clear with no rales or rhonchi. ABDOMEN: Soft with no mass, tenderness, or organomegaly. EXTREMITIES: There is medial scar on the left leg extending from mid thigh to mid calf. There are several ulcers of his left foot, healing. Right foot is warm. RECTAL AND GENITALIA: Deferred. LABORATORY: White blood count 18,000. Urinalysis positive for WBCs and blood. IMPRESSION: 1. Urinary tract infection related to previous indwelling Singh. 2. Peripheral artery disease. 3. Coronary artery disease. 4. Atrial fibrillation. 5. Cardiomyopathy. PLAN: Admit for further treatment with intravenous antibiotics. Both blood and urine cultures were obtained. cc: MD Renzo Tamayo MD
--- NOTE | 2019-05-30 23:38 | EKG Report ---
Test Performed on : 05/30/2019 8:26:38 PM Test Reason : admission Blood Pressure : / mmHG Vent. Rate : 086 BPM Atrial Rate : 070 BPM P-R Int : 000 ms QRS Dur : 128 ms QT Int : 420 ms P-R-T Axes : 000 030 187 degrees QTc Int : 502 ms Wide QRS rhythm. Nonspecific intraventricular block Inferior infarct , age undetermined Abnormal ECG When compared with ECG of 16-MAY-2019 18:52, (Unconfirmed) No significant change was found Unconfirmed Result
[2019-05-31] MEDS ORDERED: SYNTHROID PO SCH (07:00)
[2019-05-31] MEDS ORDERED: KLOR-CON PO SCH (08:00)
[2019-05-31] MEDS ORDERED: HUMALOG SUBQ SCH (08:15)
[2019-05-31] MEDS ORDERED: JANUVIA PO SCH (09:00)
[2019-05-31] MEDS ORDERED: PROTONIX PO SCH (09:00)
[2019-05-31] MEDS ORDERED: CORDARONE PO SCH (09:00)
[2019-05-31] MEDS ORDERED: LIPITOR PO SCH (09:00)
[2019-05-31] MEDS ORDERED: IMDUR PO SCH (09:00)
[2019-05-31] MEDS ORDERED: ZAROXOLYN PO SCH (09:00)
[2019-05-31] MEDS ORDERED: ASPIRIN EC PO SCH (09:00)
[2019-05-31] MEDS: KLOR-CON PO SCH ×3 (10:18→21:50)
[2019-05-31] MEDS: ELIQUIS PO SCH ×2 (10:19→21:50)
[2019-05-31] MEDS: ASPIRIN PO SCH (10:19)
[2019-05-31] MEDS: CORDARONE PO SCH (10:19)
[2019-05-31] MEDS: JANUVIA PO SCH (10:19)
[2019-05-31] MEDS: BUMEX PO SCH ×2 (10:19→21:49)
[2019-05-31] MEDS: IMDUR PO SCH (10:19)
[2019-05-31] MEDS: ENTRESTO 24 MG-26 MG TABLET PO SCH ×2 (10:20→21:49)
[2019-05-31] MEDS: HUMULIN R SUBQ SCH ×3 (11:44→20:24)
--- NOTE | 2019-05-31 18:56 | PROGRESS NOTE ---
DATE: 05/31/2019 SUBJECTIVE: A 64-year-old white male, complicated historian, recently discharged from the hospital after opened up left popliteal artery for peripheral arterial disease, with ulcers that are not healing, by Dr. Garza. He went to rehab at [facility]. He was brought in with a urinary tract infection due to Singh catheter. White cell count is 18,000. Was admitted by Dr. Albert last night. The patient's Singh was out and complains of nausea, intermittent abdominal pain. REVIEW OF SYSTEMS: Rest of the review of systems are normal. PAST MEDICAL HISTORY: Reviewed. PAST SURGICAL HISTORY: Reviewed. MEDICINES: Reviewed. ALLERGIES: Not known. OBJECTIVE: Vital Signs: On exam, his temperature is 98 degrees, pulse 80, blood pressure is 102/64. HEENT: Exam within normal limits. Chest: Clear. Heart: Sounds are regular. Abdomen: Belly is soft, nontender and Singh was out. Extremities: Left leg cutaneous ulcers at anterior part of the leg and the dorsal area of the feet are healing. No signs of gangrene noted. LABS: Last night, CBC: White cell count 18, hematocrit 34, platelets 348,000. Sodium 138, potassium 4.7, BUN 49, creatinine 2.8. Blood cultures, urine cultures are pending. ASSESSMENT AND PLAN: 1. Urinary tract infection, probably from the Singh, on intravenous Entresto. Follow up on culture and sensitivity. 2. Ischemic cardiomyopathy, on Entresto. 3. Paroxysmal atrial fibrillation. 4. Peripheral arterial disease. 5. Chronic kidney failure. Gentle intravenous fluids. 6. Continue on Cordarone and Eliquis. 7. Intermittent nausea and vomiting due to gastroparesis. Will use the Reglan as needed. 8. Diabetes. Continue on sliding scale with insulin coverage. 9. Will repeat the labs in the morning and will follow up. LEVEL OF DOCUMENTATION: 25 minutes. cc: Renzo Peoples MD
[2019-05-31] MEDS: HUMALOG SUBQ SCH (20:24)
[2019-05-31] MEDS: ROCEPHIN 1 GM in NS 50 ML IV SCH (21:50)
[2019-05-31] MEDS: CLINIMIX E 4.25%-5% SOLUTION 1,000 ML IV SCH (22:31)
[2019-06-01] MEDS: HUMULIN R SUBQ SCH ×4 (06:14→20:39)
[2019-06-01] MEDS: HUMALOG SUBQ SCH ×4 (06:14→20:39)
[2019-06-01 06:51] LABS: HEMATOCRIT 31.9 % (42.0-52.0); HEMOGLOBIN 9.9 g/dL (14.0-18.0); RBC 3.87 XMIL (4.7-6.1)
[2019-06-01 06:52] LABS: BASO# 0.04 X1000 (0.0-0.2); BASO% 0.2 % (0.0-0.8); EOS# 0.04 X1000 (0.0-0.7); EOS% 0.2 % (0.0-10.0); IMM GRAN# 0.08 X1000 (0.0-0.04); IMM GRAN% 0.3 % (0.0-0.5); LYMPH# 0.75 X1000 (1.2-3.4); LYMPH% 3.1 % (20.5-51.1); MCH 25.6 PG (27-31); MCV 82.4 FL (81-99); MONO# 1.36 X1000 (0.11-0.59); MONO% 5.6 % (1.7-9.3); MPV 12.2 FL (7.4-10.4); NEUT# 21.83 X1000 (1.4-6.5); NEUT% 90.6 % (42.2-75.2); PLT 276 X1000 (130-400)
[2019-06-01 07:01] LABS: CALCIUM 8.9 mg/dL (8.8-10.2); CREATININE 2.2 mg/dL (0.7-1.2)
[2019-06-01 07:43] LABS: BANDS 1 % (0-1); EOS 1 % (1-10); LYMPHS 4 % (21-51); MONO 7 % (1-9); SEGS 87 % (42-75)
[2019-06-01] MEDS: ENTRESTO 24 MG-26 MG TABLET PO SCH ×2 (09:46→20:38)
[2019-06-01] MEDS: IMDUR PO SCH (09:46)
[2019-06-01] MEDS: CORDARONE PO SCH (09:46)
[2019-06-01] MEDS: JANUVIA PO SCH (09:46)
[2019-06-01] MEDS: ELIQUIS PO SCH ×2 (09:47→20:39)
[2019-06-01] MEDS: BUMEX PO SCH (09:47)
[2019-06-01] MEDS: KLOR-CON PO SCH ×3 (09:47→20:39)
[2019-06-01] MEDS: ASPIRIN PO SCH (09:47)
--- NOTE | 2019-06-01 15:03 | PROGRESS NOTE ---
DATE: 06/01/2019 SUBJECTIVE: The patient is a little bit feeling better. OBJECTIVE: Vital signs: Fever 99.9, blood pressure is in on the low side. HEENT: Exam within normal limits. Neck: Supple. Chest: Clear. Heart: Sounds are regular. Abdomen: Belly is soft, nontender. Extremities: Left leg: No signs of gangrene noted. LABS: White cell count 24, hematocrit 31.9, platelets 276. Sodium 139, potassium 4, BUN 58, creatinine 2.2, glucose 196. ASSESSMENT AND PLAN: 1. Urinary tract infection, gram-negative rods, due to recent urinary tract infection. Follow up on C and S. Continue ceftriaxone. 2. Chronic kidney disease. Since he had diabetic gastroparesis, I will cutdown the Bumex once daily, continue on IV Clinimix. 3. Ischemic cardiomyopathy. PAF stable. Follow up C and S in the urine. The antibiotic will be adjusted. He did express Living Will, Do Not Resuscitate down the line. LEVEL OF DOCUMENTATION: 25 minutes. cc: MD LENIN Mohamud
[2019-06-01] MEDS: CLINIMIX E 4.25%-5% SOLUTION 1,000 ML IV SCH (16:48)
[2019-06-01] MEDS ORDERED: REGLAN IV ONE (18:39)
[2019-06-01] MEDS: ROCEPHIN 1 GM in NS 50 ML IV SCH (20:39)
[2019-06-02] MEDS: HUMALOG SUBQ SCH ×4 (06:23→20:05)
[2019-06-02] MEDS: HUMULIN R SUBQ SCH ×4 (06:23→22:23)
[2019-06-02 06:40] LABS: BASO# 0.03 X1000 (0.0-0.2); BASO% 0.3 % (0.0-0.8); EOS% 0.9 % (0.0-10.0); HEMOGLOBIN 9.9 g/dL (14.0-18.0); IMM GRAN# 0.04 X1000 (0.0-0.04); IMM GRAN% 0.4 % (0.0-0.5); LYMPH% 4.6 % (20.5-51.1); MCH 25.4 PG (27-31); MCHC 30.9 g/dL (33-37); MCV 82.1 FL (81-99); MONO# 0.52 X1000 (0.11-0.59); MONO% 4.8 % (1.7-9.3); MPV 12.5 FL (7.4-10.4); NEUT# 9.74 X1000 (1.4-6.5); PLT 247 X1000 (130-400); RDW 18.8 % (11.5-14.5); WBC 10.93 X1000 (4.8-10.8)
[2019-06-02 07:24] LABS: CALCIUM 9.5 mg/dL (8.8-10.2); CREATININE 2.3 mg/dL (0.7-1.2)
[2019-06-02] MEDS: REGLAN IV SCH ×3 (09:29→16:57)
[2019-06-02] MEDS: CORDARONE PO SCH (09:29)
[2019-06-02] MEDS: IMDUR PO SCH (09:29)
[2019-06-02] MEDS: ASPIRIN PO SCH (09:29)
[2019-06-02] MEDS: KLOR-CON PO SCH ×3 (09:29→20:03)
[2019-06-02] MEDS: ELIQUIS PO SCH ×2 (09:29→20:03)
[2019-06-02] MEDS: BUMEX PO SCH (09:29)
[2019-06-02] MEDS: JANUVIA PO SCH (09:29)
[2019-06-02] MEDS: ENTRESTO 24 MG-26 MG TABLET PO SCH ×2 (09:29→20:04)
[2019-06-02 11:01] LABS: BANDS 6 % (0-1); LYMPHS 2 % (21-51); MONO 2 % (1-9); SEGS 90 % (42-75)
[2019-06-02] MEDS: NS IV SCH ×2 (11:13→18:04)
[2019-06-02] MEDS: ZOSYN IV SCH ×2 (11:13→18:04)
[2019-06-02] MEDS: TYLENOL PO PRN (11:16)
--- NOTE | 2019-06-02 11:51 | PROGRESS NOTE ---
DATE: 06/02/2019 SUBJECTIVE: The patient's is at bedside. He complains of dysuria, nausea. They have questions about his creatinine. His last creatinine on 05/22/2019 was 1.3. OBJECTIVE: Vital Signs: Temperature is 97.5 degrees, pulse 67, blood pressure is stable. HEENT: Within normal limits. Neck: Supple. Chest: Clear. Heart: Heart sounds are regular. Abdomen: Belly is soft, nontender. Extremities: The left leg ulcers are healing. LABORATORY DATA: Sodium 137, potassium 4, chloride 97, BUN 73, creatinine 2.3, glucose 253. Urine cultures show Escherichia coli. Blood cultures are negative. ASSESSMENT AND PLAN: 1. Urinary tract infection due to Singh and Escherichia coli, extended spectrum beta-lactamase negative. Change ceftriaxone to Zosyn 2.275 intravenously every 8 hours. 2. Check the bladder scan. 3. Tylenol for pain. 4. Increase the Clinimix to 75 mL an hour, and will continue to monitor CBC, BMP. If no better, consider ultrasound of the renal. I also decreased Bumex to 1 mg daily. 5. Diabetic gastroparesis. Continue intravenous Reglan three times daily. 6. Diabetes, on Januvia and sliding scale with insulin coverage. 7. Ischemic cardiomyopathy, paroxysmal atrial fibrillation, stable. Discussed the plan of care with the family at bedside. LEVEL OF DOCUMENTATION: 35 minutes. cc: Renzo Peoples MD
[2019-06-02] MEDS: CLINIMIX E 4.25%-5% SOLUTION 1,000 ML IV SCH (12:02)
[2019-06-03] MEDS: CLINIMIX E 4.25%-5% SOLUTION 1,000 ML IV SCH ×2 (00:06→12:40)
[2019-06-03] MEDS: TYLENOL PO PRN ×3 (01:38→18:26)
[2019-06-03] MEDS: ZOSYN IV SCH ×3 (02:18→18:26)
[2019-06-03] MEDS: NS IV SCH ×3 (02:18→18:26)
[2019-06-03] MEDS: HUMALOG SUBQ SCH ×4 (06:16→22:49)
[2019-06-03] MEDS: HUMULIN R SUBQ SCH ×4 (06:17→22:49)
[2019-06-03 06:47] LABS: HEMATOCRIT 34.3 % (42.0-52.0); HEMOGLOBIN 10.5 g/dL (14.0-18.0); MCH 25.1 PG (27-31); MCHC 30.6 g/dL (33-37); MCV 82.1 FL (81-99); RBC 4.18 XMIL (4.7-6.1); WBC 6.57 X1000 (4.8-10.8)
[2019-06-03 06:48] LABS: BASO# 0.04 X1000 (0.0-0.2); BASO% 0.6 % (0.0-0.8); EOS# 0.28 X1000 (0.0-0.7); EOS% 4.3 % (0.0-10.0); IMM GRAN# 0.05 X1000 (0.0-0.04); IMM GRAN% 0.8 % (0.0-0.5); LYMPH# 0.55 X1000 (1.2-3.4); LYMPH% 8.4 % (20.5-51.1); MONO# 0.71 X1000 (0.11-0.59); MONO% 10.8 % (1.7-9.3); MPV 12.3 FL (7.4-10.4); NEUT# 4.94 X1000 (1.4-6.5); NEUT% 75.1 % (42.2-75.2); PLT 264 X1000 (130-400); RDW 18.5 % (11.5-14.5)
[2019-06-03 07:13] LABS: CALCIUM 9.5 mg/dL (8.8-10.2); CREATININE 1.8 mg/dL (0.7-1.2); POTASSIUM 4.4 mmol/L (3.5-5.1)
[2019-06-03] MEDS: BUMEX PO SCH (08:45)
[2019-06-03] MEDS: ASPIRIN PO SCH (08:46)
[2019-06-03] MEDS: REGLAN IV SCH ×3 (08:46→18:25)
[2019-06-03] MEDS: ENTRESTO 24 MG-26 MG TABLET PO SCH ×2 (08:46→20:11)
[2019-06-03] MEDS: CORDARONE PO SCH (08:46)
[2019-06-03] MEDS: JANUVIA PO SCH (08:46)
[2019-06-03] MEDS: IMDUR PO SCH (08:46)
[2019-06-03] MEDS: ELIQUIS PO SCH ×2 (08:46→20:11)
[2019-06-03] MEDS: KLOR-CON PO SCH ×3 (08:46→18:26)
--- NOTE | 2019-06-03 11:56 | PROGRESS NOTE ---
DATE: 06/03/2019 SUBJECTIVE: The patient is bladder scanned, more than 250. Decrease in nausea. OBJECTIVE: Vital Signs: Temp is 97 degrees, pulse 66. Vitals are stable. HEENT: Within normal limits. Neck: Supple. No lymphadenopathy. Chest: Clear. Heart: Heart sounds are regular. Abdomen: Belly is soft, nontender. Extremities: Left leg skin lesions are healing well. MICROBIOLOGY: Urine cultures are positive for Escherichia coli. Blood cultures are negative. ASSESSMENT AND PLAN: 1. Urinary tract infection. Continue on intravenous Zosyn. 2. Acute kidney injury from chronic renal failure. Bladder scan is high. Will do the straight catheterization, in and out. 3. Gastroparesis, better. 4. Continue intravenous Clinimix. Check the pulses in both feet. 5. Ischemic cardiomyopathy, stable. Continue present treatment, and will check the daily SMA-7 and bladder scan twice a day. LEVEL OF DOCUMENTATION: 25 minutes. cc: Renzo Peoples MD
[2019-06-04] MEDS: CLINIMIX E 4.25%-5% SOLUTION 1,000 ML IV SCH ×2 (02:56→18:23)
[2019-06-04] MEDS: ZOSYN IV SCH ×3 (02:56→18:29)
[2019-06-04] MEDS: NS IV SCH ×3 (02:56→18:29)
[2019-06-04] MEDS: HUMALOG SUBQ SCH ×4 (06:14→21:47)
[2019-06-04 06:53] LABS: CALCIUM 9.8 mg/dL (8.8-10.2); CREATININE 1.7 mg/dL (0.7-1.2); POTASSIUM 4.7 mmol/L (3.5-5.1)
[2019-06-04] MEDS: CORDARONE PO SCH (09:31)
[2019-06-04] MEDS: JANUVIA PO SCH (09:31)
[2019-06-04] MEDS: ASPIRIN PO SCH (09:31)
[2019-06-04] MEDS: BUMEX PO SCH (09:31)
[2019-06-04] MEDS: ENTRESTO 24 MG-26 MG TABLET PO SCH ×2 (09:31→21:45)
[2019-06-04] MEDS: IMDUR PO SCH (09:31)
[2019-06-04] MEDS: ELIQUIS PO SCH ×2 (09:31→21:45)
[2019-06-04] MEDS: KLOR-CON PO SCH ×3 (09:31→18:23)
[2019-06-04] MEDS: REGLAN IV SCH ×3 (09:32→16:10)
[2019-06-04] MEDS: HUMULIN R SUBQ SCH ×4 (09:34→21:49)
--- NOTE | 2019-06-04 21:30 | PROGRESS NOTE ---
DATE: 06/04/2019 SUBJECTIVE: Bladder scan reported 150. Slowly emptying the bladder. Blood pressure is getting low. He had some foot injury, bleeding from the left foot. OBJECTIVE: Temperature is 97. Vitals are stable.HEENT: Within normal limits. Neck: Supple. Chest: Clear. Heart sounds are regular. Belly is soft, nontender. No obvious deficit. LABORATORY: SMA 7: Sodium 136, potassium 4.7, BUN 70, creatinine 1.7, glucose 317. ASSESSMENT AND PLAN: 1. Acute kidney injury. Slowly improving. 2. Diabetic gastroparesis. Better. 3. Intravenous Clinimix 75 mL an hour. 4. Slight bladder retention with Escherichia coli. Continue on IV Zosyn. Will check the labs in the morning and no change in the plan of care at this time. Discussed with the patient's at bedside. LEVEL OF DOCUMENTATION: 25 minutes. cc: Renzo Peoples MD
[2019-06-05] MEDS: NS IV SCH (02:46)
[2019-06-05] MEDS: ZOSYN IV SCH (02:46)
[2019-06-05] MEDS: HUMALOG SUBQ SCH ×4 (06:26→21:41)
[2019-06-05] MEDS: HUMULIN R SUBQ SCH ×4 (06:28→21:41)
[2019-06-05 07:04] LABS: CALCIUM 9.8 mg/dL (8.8-10.2); CREATININE 2.1 mg/dL (0.7-1.2); POTASSIUM 4.6 mmol/L (3.5-5.1)
[2019-06-05] MEDS: REGLAN IV SCH ×3 (08:15→16:04)
[2019-06-05] MEDS: CLINIMIX E 4.25%-5% SOLUTION 1,000 ML IV SCH ×2 (08:16→21:36)
[2019-06-05] MEDS: JANUVIA PO SCH (10:30)
[2019-06-05] MEDS: ENTRESTO 24 MG-26 MG TABLET PO SCH ×2 (10:30→21:32)
[2019-06-05] MEDS: KLOR-CON PO SCH ×3 (10:30→17:54)
[2019-06-05] MEDS: ASPIRIN PO SCH (10:30)
[2019-06-05] MEDS: BUMEX PO SCH (10:30)
[2019-06-05] MEDS: IMDUR PO SCH (10:31)
[2019-06-05] MEDS: ELIQUIS PO SCH ×2 (10:31→21:32)
[2019-06-05] MEDS: CORDARONE PO SCH (10:32)
[2019-06-05] MEDS: ZOSYN 2.25 GM in NS 50 ML IV SCH ×2 (11:40→17:54)
--- NOTE | 2019-06-05 16:37 | Diag Imaging Result Doc PS360 ---
EXAM: US RENAL 2 (RETROPER) COMPLETE 06/05/2019 HISTORY: Urinary retention TECHNIQUE: Renal ultrasound COMMENT: There is no evidence of hydronephrosis or mass. The right kidney measures 11.1 x 6 x 5.7 cm and the left is 10.9 x 4.9 x 5.9 cm. The kidneys are normal in echogenicity. There is no evidence of stones. The bladder is not distended. The prostate gland measures 5.1 x 4.9 x 4.8 cm. IMPRESSION: No evidence of obstructive uropathy. Electronically signed by Andres Max 06/05/2019 4:35 PM
--- NOTE | 2019-06-05 18:12 | CONSULTATION ---
DATE OF CONSULTATION: 05/30/2019 ATTENDING/REFERRING PHYSICIAN: Dr. Peoples. HISTORY OF PRESENT ILLNESS: This 64-year-old male was admitted with a febrile urinary tract infection. His urine culture grew E. coli. He is on a culture-specific antibiotic. The patient's creatinine was 1.3 at admission and today it was 2.1. The patient states he usually feels like he voids without difficulty. His states that he has been going more frequently. The patient is several weeks status post left superficial femoral/popliteal arthrectomy and angioplasty and he states he had a Singh catheter in for about 5 days after that procedure. The patient states he is feeling better but still very weak. He denies any history of kidney stones. He has no previous history of urologic surgery. He is not taking any type of medications for his prostate. PAST MEDICAL HISTORY: Peptic ulcer disease, coronary artery disease, diabetes, gastroesophageal reflux disease, hypothyroidism, history of atrial fibrillation, history of congestive heart failure, sleep apnea. CURRENT MEDICATIONS: Documented on the chart. PAST SURGICAL HISTORY: As noted in the HPI, aortofemoral bypass grafting, radiofrequency ablation of a vessel in 2017, coronary artery bypass grafting, tonsillectomy, placement of a cardiac pacemaker. SOCIAL HISTORY: No tobacco or alcohol use. He was admitted from rehab from his recent vascular surgery. ALLERGIES: He has no known drug allergies. He states he does have significant vascular problems, but overall was doing okay. He denies any history of stroke or seizures. He states he tries to keep his diabetes under good control. PHYSICAL EXAMINATION: General: An obese, age-apparent, normally-developed, white male, oriented in all ways and cooperative. HEENT: Normal for age. Lungs: Clear. Cardiovascular: Regular rate and rhythm. Abdomen: Obese, soft, nontender. No hepatosplenomegaly or masses. Normal bowel sounds. : Uncircumcised male. Both testes are down and palpably normal. There are small bilateral hydroceles. No inguinal hernias. Foreskin retracts. Meatus is normal. Rectal: Normal sphincter tone. Prostate about 40 g, smooth, and symmetric. Extremities: With a dressing in place on the left. Both extremities have very atrophic muscles. Neurologic: No focal deficits. LABORATORY EVALUATION: He has a normal serum electrolytes, BUN 77, creatinine 2.1. CBC has a white count of 6.57, hemoglobin 10.5, hematocrit of 34.3, platelets are 264,000. The patient's latest postvoid residual (earlier this morning) was 200 mL. IMPRESSIONS: 1. Enlarged prostate with some obstructive voiding symptoms. 2. Renal insufficiency. 3. History of febrile urinary tract infection that appears resolving. RECOMMENDATIONS: 1. Flomax 0.4 mg a day. 2. Renal ultrasound as has been ordered to evaluate the upper tracts. His renal ultrasound in March of 2019 revealed normal upper tracts. Thank you for this consultation. cc: MD Renzo Andrews MD
[2019-06-05] MEDS: FLOMAX PO SCH (21:32)
--- NOTE | 2019-06-05 22:28 | PROGRESS NOTE ---
DATE: 06/05/2019 SUBJECTIVE: The patient is not getting any improvement and he wants urologist to look at. Blood pressure is stable and bladder scan 170 mL and urine has E coli. REVIEW OF SYSTEMS: None reported other than bladder issues. PHYSICAL EXAM: Temperature is 98 degrees vitals are stable.HEENT: Within normal limits. Neck: Supple. Chest: Clear. Heart: Sounds are regular. Abdomen: Belly is soft, nontender. Neurological: No neurological deficits. LABORATORIES: SMA 7: Sodium 139, potassium 4.6, BUN 77, creatinine 2.1, glucose 307. ASSESSMENT AND PLAN: 1. Urinary tract infection, Escherichia coli on Zosyn. 2. Acute kidney injury, probably prerenal. Continue IV Clinimix. 3. Urology consult with Dr. Foss. I am afraid to start on Flomax because of the low blood pressure. I already decreased Bumex. 4. Left leg ischemic status post popliteal angioplasty and atherectomy and no signs of bleeding. Decreased Eliquis 2.5 p.o. b.i.d. and will check the daily SMA 7. 5. Diabetes is stable. LEVEL OF DOCUMENTATION: 25 minutes cc: Renzo Peoples MD
[2019-06-06] MEDS: ZOSYN 2.25 GM in NS 50 ML IV SCH ×3 (02:26→17:33)
[2019-06-06] MEDS: HUMULIN R SUBQ SCH ×4 (06:31→21:22)
[2019-06-06] MEDS: HUMALOG SUBQ SCH ×4 (07:54→21:22)
[2019-06-06] MEDS: REGLAN IV SCH ×3 (08:11→17:25)
[2019-06-06 09:11] LABS: CALCIUM 9.4 mg/dL (8.8-10.2); CREATININE 2.3 mg/dL (0.7-1.2)
[2019-06-06] MEDS: JANUVIA PO SCH (09:30)
[2019-06-06] MEDS: ASPIRIN PO SCH (10:36)
[2019-06-06] MEDS: CLINIMIX E 4.25%-5% SOLUTION 1,000 ML IV SCH (10:36)
[2019-06-06] MEDS: CORDARONE PO SCH (10:37)
[2019-06-06] MEDS: KLOR-CON PO SCH ×3 (10:37→17:16)
[2019-06-06] MEDS: BUMEX PO SCH (10:37)
[2019-06-06] MEDS: ELIQUIS PO SCH ×2 (10:38→21:21)
[2019-06-06] MEDS: IMDUR PO SCH (10:43)
[2019-06-06] MEDS: ENTRESTO 24 MG-26 MG TABLET PO SCH ×2 (10:46→21:21)
--- NOTE | 2019-06-06 22:13 | PROGRESS NOTE ---
DATE: 06/06/2019 SUBJECTIVE: Patient's blood pressures dropping. Creatinine is going up. Not able to tolerate Flomax. We will hold the blood pressure medicine. OBJECTIVE: On exam, temperature is 97. Vitals are stable. HEENT within normal limits. Physical exam no change. Sodium 137, potassium 5, BUN 89, creatinine 2.3. ASSESSMENT AND PLAN: Renal failure, due to acute prerenal. Continue on Clinimix. We will hold the Flomax and blood pressure medicine. He is anxious to go home and continue antibiotics for Escherichia coli. Decrease the Bumex. I appreciate Dr. Foss' consult and will discuss with the patient about going home, about this creatinine level, and will follow up level. Also, we are changing the Eliquis 2.5 p.o. b.i.d., adjust the dose according to the chronic kidney disease and follow up. LEVEL OF DOCUMENTATION: 25 minutes. cc: Renzo Peoples MD
[2019-06-07] MEDS: CLINIMIX E 4.25%-5% SOLUTION 1,000 ML IV SCH ×3 (00:05→14:32)
[2019-06-07] MEDS: ZOSYN 2.25 GM in NS 50 ML IV SCH ×3 (02:05→18:39)
[2019-06-07] MEDS: HUMALOG SUBQ SCH ×4 (06:30→20:47)
[2019-06-07] MEDS: HUMULIN R SUBQ SCH ×4 (06:31→20:47)
[2019-06-07] MEDS: REGLAN IV SCH ×3 (08:40→16:41)
[2019-06-07] MEDS: ASPIRIN PO SCH (08:43)
[2019-06-07] MEDS: BUMEX PO SCH (08:43)
[2019-06-07] MEDS: ELIQUIS PO SCH ×2 (08:44→20:45)
[2019-06-07] MEDS: CORDARONE PO SCH (08:44)
[2019-06-07] MEDS: ENTRESTO 24 MG-26 MG TABLET PO SCH ×2 (08:45→20:47)
[2019-06-07] MEDS: IMDUR PO SCH (08:45)
[2019-06-07] MEDS: KLOR-CON PO SCH ×2 (08:46→14:32)
[2019-06-07] MEDS: JANUVIA PO SCH (08:46)
[2019-06-07 11:23] LABS: CALCIUM 9.8 mg/dL (8.8-10.2); CREATININE 2.1 mg/dL (0.7-1.2); POTASSIUM 5.1 mmol/L (3.5-5.1)
[2019-06-07] MEDS: 1/2 NS 1,000 ML IV SCH (18:39)
[2019-06-07] MEDS: FLOMAX PO SCH (20:51)
--- NOTE | 2019-06-07 21:37 | PROGRESS NOTE ---
DATE: 06/07/2019 SUBJECTIVE: The patient is anxious to go home. He is emptying the bladder. Blood pressure is low. BUN and creatinine are going up. His baseline is about 1.5. OBJECTIVE: Temperature is 98, pulse 85, blood pressure is 79/64.HEENT: Within normal limits. Chest: Clear. Heart: Sounds are regular. Belly is soft, nontender. INVESTIGATIONS: Sodium 135, potassium 5.1, chloride 99, BUN 84, creatinine 2.1, glucose 221. ASSESSMENT AND PLAN: 1. Escherichia coli urinary tract infection due to Singh catheter. Continue on IV Zosyn. 2. Chronic kidney disease. Discontinue Clinimix, change to half-normal saline, and make sure the creatinine is coming back to normal. 3. Diabetic gastroparesis. Stable. 4. Ischemic cardiomyopathy. Stable. If he continues to improve, will discharge over the weekend, and change the antibiotics based on the C S on E. coli on 05/30/2019, and ESBL negative. If blood pressure is stable, emptying the bladder, he can be discharged. Otherwise, we will do on Monday. LEVEL OF DOCUMENTATION: 25 minutes. cc: Renzo Peoples MD
[2019-06-08] MEDS: ZOSYN 2.25 GM in NS 50 ML IV SCH ×3 (02:10→18:12)
[2019-06-08] MEDS: HUMALOG SUBQ SCH ×4 (06:49→20:55)
[2019-06-08] MEDS: HUMULIN R SUBQ SCH ×4 (06:50→20:56)
[2019-06-08] MEDS: REGLAN IV SCH ×3 (08:57→16:17)
[2019-06-08] MEDS: BUMEX PO SCH (08:57)
[2019-06-08] MEDS: ASPIRIN PO SCH (08:57)
[2019-06-08] MEDS: CORDARONE PO SCH (08:58)
[2019-06-08] MEDS: ELIQUIS PO SCH ×2 (08:58→20:55)
[2019-06-08] MEDS: JANUVIA PO SCH (08:59)
[2019-06-08] MEDS: ENTRESTO 24 MG-26 MG TABLET PO SCH ×2 (08:59→20:55)
[2019-06-08] MEDS: IMDUR PO SCH (08:59)
[2019-06-08] MEDS: 1/2 NS 1,000 ML IV SCH (11:23)
--- NOTE | 2019-06-08 12:31 | PROGRESS NOTE ---
DATE: 06/08/2019 After the patient had told me that he definitely wanted to go home, I sat down at the desk and his came up to talk with me. She was very concerned about him going home because he cannot put weight on his left leg and she knows that he has been irritated and tired of hospitals but she is concerned about whether she can take care of him or not. Since he is not putting weight on the left lower extremity it might be a good consideration to send him back to rehab which is where he came from with a urinary tract infection. Apparently, he did not particularly care for the rehab facility that he was at previously. He has not had a recheck of his urine and his creatinine has gone back to 2.1. His blood pressure which was 102/33 was actually a little bit lower this morning at 91/40 and he had been having some hypotension. Under the circumstances I agree with him staying in the hospital and now that he has agreed to do this after talking with his we will keep him in the hospital. I will repeat his urinalysis. I will get Physical Therapy to see him and then on Monday Dr. Peoples can decide when he should go home and whether he should go home or go back to a rehab facility. cc: MD Renzo Keith Jr, MD
[2019-06-08 13:17] LABS: URINE SOURCE CLEAN CATCH
[2019-06-08 13:36] LABS: BILIRUBIN URINE NEGATIVE (NEGATIVE); BLOOD URINE NEGATIVE (NEGATIVE); COLOR YELLOW; GLUCOSE URINE NEGATIVE (NEGATIVE); KETONE URINE NEGATIVE (NEGATIVE); LEUKOCYTES URINE SMALL (NEGATIVE); NITRITE URINE NEGATIVE (NEGATIVE); PROTEIN URINE NEGATIVE (NEGATIVE); SP GRAVITY URINE 1.012; TURBIDITY URINE CLEAR (CLEAR); UROBILINOGEN URINE NORMAL (NORMAL)
[2019-06-08 13:50] LABS: UR EPITHELIAL CELLS <10 /HPF (<10); URINE BACTERIA NEGATIVE /HPF; URINE RBC <10 /HPF (<10); URINE WBC <10 /HPF (<10)
[2019-06-08 13:56] LABS: URINE CASTS NONE SEEN; URINE CRYSTALS NONE SEEN; URINE SMALL ROUND CELLS NONE SEEN; URINE YEAST PRESENT
--- NOTE | 2019-06-08 14:11 | PROGRESS NOTE ---
DATE: 06/08/2019 SUBJECTIVE: The patient is not in a good mood. He seemed very irritated. He says he is going home. I have not met him before so I am not sure what he is upset about. I asked him if there was something he was upset about. He says he is just ready to go home. Apparently he had vascular surgery done on his left lower extremity and went to rehab and then in rehab he had a Singh catheter and developed a urinary tract infection with Escherichia coli. He came back in the hospital this time with some renal failure and UTI. His creatinine has come back up to 2.1. I have mentioned this to him. He still wants to go home. He does have E. coli that is sensitive to Macrobid. OBJECTIVE: Blood pressure is 102/33. Respirations 18, pulse 72, temperature 97.7 degrees Fahrenheit.HEENT: Normocephalic. PERRLA. Throat clear. Lungs: Clear to auscultation and percussion without rhonchi, rales, or wheezes. Heart: Regular rate and rhythm without murmurs, gallops, friction rubs. Abdomen: Soft. Active bowel sounds. No organomegaly or tenderness. Wound on left lower extremity seemed to be healed. Will send him home with his home medications and Macrobid 100 mg p.o. b.i.d. for 7 days. He will check back in with Dr. Peoples on Monday. cc: MD Renzo Keith Jr, MD
[2019-06-08] MEDS: FLOMAX PO SCH (20:55)
[2019-06-09] MEDS: 1/2 NS 1,000 ML IV SCH ×2 (03:25→22:31)
[2019-06-09] MEDS: ZOSYN 2.25 GM in NS 50 ML IV SCH ×3 (03:25→18:43)
[2019-06-09] MEDS: HUMALOG SUBQ SCH ×4 (06:17→21:00)
[2019-06-09] MEDS: HUMULIN R SUBQ SCH ×4 (06:17→22:28)
[2019-06-09 07:42] LABS: BASO# 0.04 X1000 (0.0-0.2); BASO% 0.4 % (0.0-0.8); EOS# 0.46 X1000 (0.0-0.7); EOS% 4.4 % (0.0-10.0); HEMATOCRIT 34.5 % (42.0-52.0); HEMOGLOBIN 10.7 g/dL (14.0-18.0); IMM GRAN# 0.09 X1000 (0.0-0.04); IMM GRAN% 0.9 % (0.0-0.5); LYMPH# 1.33 X1000 (1.2-3.4); LYMPH% 12.6 % (20.5-51.1); MCH 25.5 PG (27-31); MCV 82.1 FL (81-99); MONO% 4.7 % (1.7-9.3); MPV 11.7 FL (7.4-10.4); NEUT# 8.14 X1000 (1.4-6.5); PLT 331 X1000 (130-400); RDW 18.7 % (11.5-14.5); WBC 10.56 X1000 (4.8-10.8)
[2019-06-09 08:05] LABS: CALCIUM 9.1 mg/dL (8.8-10.2); CREATININE 2.1 mg/dL (0.7-1.2); POTASSIUM 4.7 mmol/L (3.5-5.1)
[2019-06-09] MEDS: REGLAN IV SCH ×3 (10:37→16:08)
[2019-06-09] MEDS: ASPIRIN PO SCH (10:38)
[2019-06-09] MEDS: BUMEX PO SCH (10:38)
[2019-06-09] MEDS: CORDARONE PO SCH (10:38)
[2019-06-09] MEDS: ENTRESTO 24 MG-26 MG TABLET PO SCH ×2 (10:39→22:26)
[2019-06-09] MEDS: ELIQUIS PO SCH ×2 (10:39→22:27)
[2019-06-09] MEDS: JANUVIA PO SCH (10:40)
[2019-06-09] MEDS: IMDUR PO SCH (10:40)
--- NOTE | 2019-06-09 12:32 | PROGRESS NOTE ---
DATE: 06/09/2019 SUBJECTIVE: The patient says he is feeling better. He still cannot put much weight on his left leg. Repeat urinalysis looks normal. The patient is growing E. coli in his urine. OBJECTIVE: Vital Signs: Blood pressure 106/35, respirations 24, pulse 75, temperature 97.6 degrees Fahrenheit. HEENT: Normocephalic. EOMs intact. PERRLA. Throat clear. Lungs: Clear to auscultation and percussion without rhonchi, rales, or wheezes. Heart: Regular rate and rhythm without murmurs, gallops, or friction rubs. Abdomen: Soft. Active bowel sounds. No organomegaly or tenderness. Left lower extremity shows a healing wound from his previous surgery. ASSESSMENT: 1. Peripheral vascular disease, status post bypass surgery. 2. Urinary tract infection. PLAN: Continue antibiotics 1 more day. It probably can be stopped after that, at the discretion of his primary care physician. I have suggested to him that he may want to go back to rehab since he is not putting any weight on that left leg. His has had some concern about whether she can take care of him at home or not. He again tells me today he has decided does want to go home. I will let him discuss this with his family physician and with his . May need to make a game plan on what is best for him. cc: MD Renzo Keith Jr, MD
[2019-06-09] MEDS: FLOMAX PO SCH (22:26)
[2019-06-09] MEDS: TYLENOL PO PRN (22:27)
[2019-06-10] MEDS: ZOSYN 2.25 GM in NS 50 ML IV SCH (02:03)
[2019-06-10] MEDS: HUMALOG SUBQ SCH (06:27)
[2019-06-10] MEDS: HUMULIN R SUBQ SCH (06:27)
[2019-06-10 07:08] LABS: BASO# 0.04 X1000 (0.0-0.2); BASO% 0.5 % (0.0-0.8); EOS# 0.32 X1000 (0.0-0.7); EOS% 3.6 % (0.0-10.0); HEMATOCRIT 32.1 % (42.0-52.0); HEMOGLOBIN 9.8 g/dL (14.0-18.0); IMM GRAN# 0.05 X1000 (0.0-0.04); IMM GRAN% 0.6 % (0.0-0.5); LYMPH# 0.99 X1000 (1.2-3.4); LYMPH% 11.3 % (20.5-51.1); MCH 25.1 PG (27-31); MCHC 30.5 g/dL (33-37); MCV 82.3 FL (81-99); MONO# 0.45 X1000 (0.11-0.59); MONO% 5.1 % (1.7-9.3); NEUT# 6.93 X1000 (1.4-6.5); NEUT% 78.9 % (42.2-75.2); PLT 309 X1000 (130-400); RDW 18.7 % (11.5-14.5); WBC 8.78 X1000 (4.8-10.8)
[2019-06-10 07:53] VITALS: BP 107/50
[2019-06-10 08:06] LABS: CALCIUM 8.4 mg/dL (8.8-10.2); CREATININE 2.1 mg/dL (0.7-1.2); POTASSIUM 4.1 mmol/L (3.5-5.1)
--- NOTE | 2019-06-10 22:30 | DISCHARGE SUMMARY ---
ADMISSION DATE: 05/30/2019 DISCHARGE DATE: 06/10/2019 DISCHARGING DIAGNOSES: 1. Altered mental status due to urinary tract infection from Singh with Escherichia coli, extended spectrum beta-lactamase negative. 2. Candiduria with yeast infection. 3. Complicated diabetes with neuropathy, chronic systolic heart failure with ejection fraction of 30% due to ischemic cardiomyopathy status post automated implantable cardioverter- defibrillator. 4. Paroxysmal atrial fibrillation. 5. Sleep apnea. 6. Acid reflux disease. 7. Peripheral arterial disease with bilateral aortobifemoral graft. 8. Left leg cellulitis due to left popliteal artery atherectomy by Dr. Garza. CONSULT: Dr. Foss. BRIEF HISTORY: Please see the H and P that was done by Dr. Néstor Albert on 05/30/2019. In brief, he is a 64-year-old white gentleman with above problems. Recently had left superficial popliteal artery atherectomy for underlying PAD and sent home. He returned with altered mental status and UTI with Escherichia coli, probably from the Singh catheter. The patient was given IV ProcalAmine and IV Zosyn. He continues to not be able to empty the bladder. Dr. Foss was consulted. He was not able to tolerate Flomax due to significant hypotension and also causing the worsening of the kidney function tests. He was given gentle hydration. Following creatinine came back at 2.1. He continues to have nausea, vomiting due to gastroparesis. Lesion on the left leg was healing very well. The patient anxious to go home and sent home by ambulance. LABS: At the time of discharge as follows CBC: White cell count 8.7, hematocrit 32, platelets 309,000. Sodium 135, potassium 4.1, BUN 58, creatinine 2.1, glucose 178. Urine cultures E coli. Blood cultures were negative. Urine cultures was yeast infection. DISCHARGE INSTRUCTIONS: 1. Outpatient home health care. He was given pneumococcal vaccine 13 on 01/05/2018. 2. Aspirin 81 mg daily, Protonix 40 daily, Synthroid 75 mcg daily, Cordarone 200 mg daily, nitroglycerin as needed, potassium 10 mEq p.o. t.i.d., Lipitor 80 mg in the morning, Tresiba 30 units subcutaneous at bedtime, Crestor 24 one tablet p.o. b.i.d., Januvia 50 in the morning, isosorbide 30 mg in the morning, Bumex 1 mg daily, Diflucan 100 mg daily for 10 days, Macrobid 100 daily, Reglan 5 mg 4 times daily, Eliquis 2.5 p.o. b.i.d. Check the CBC, SMA 7 as per the home health care. cc: MD Dr. Prudence Mohamud MD
== END 2019-06-10 11:35 | disposition home health service (06) | DRG 699 ==
LOC: SUPCPDRO → ED 18:40 → 3N 21:07
PROVIDERS: ADMIT Internal Medicine; ATTEND Internal Medicine

== ENCOUNTER 2019-06-10 22:01 | Observation (INO) ==
[2019-06-10] MEDS ORDERED: D50W SYRINGE IV ONE (23:09)
[2019-06-10] MEDS ORDERED: D5 1/2 NS 500 ML IV ONE (23:28)
[2019-06-10 23:45] LABS: BASO# 0.03 X1000 (0.0-0.2); BASO% 0.2 % (0.0-0.8); EOS% 1.6 % (0.0-10.0); HEMATOCRIT 33.8 % (42.0-52.0); HEMOGLOBIN 10.4 g/dL (14.0-18.0); IMM GRAN# 0.06 X1000 (0.0-0.04); IMM GRAN% 0.5 % (0.0-0.5); LYMPH# 0.72 X1000 (1.2-3.4); LYMPH% 5.7 % (20.5-51.1); MCH 25.4 PG (27-31); MCHC 30.8 g/dL (33-37); MCV 82.6 FL (81-99); MONO# 0.31 X1000 (0.11-0.59); MONO% 2.5 % (1.7-9.3); NEUT# 11.32 X1000 (1.4-6.5); NEUT% 89.5 % (42.2-75.2); PLT 348 X1000 (130-400); RBC 4.09 XMIL (4.7-6.1); RDW 18.9 % (11.5-14.5); WBC 12.64 X1000 (4.8-10.8)
[2019-06-10] MEDS ORDERED: NS 1,000 ML IV ONE (23:49)
--- NOTE | 2019-06-10 23:53 | PROVIDER DOCUMENTATION ---
This chart was entered by Laura Baer Scribe, acting as scribe for Benigno Win MD. HPI-General Adult - General Chief Complaint: Overdose Stated Complaint: insulin overdose Time Seen by Provider: 06/10/19 22:48 Source: patient, family (neyves), EMS Allergies/Adverse Reactions: Patient Allergies Allergy/AdvReac Type Severity Reaction Status Date / Time No Known Allergies Allergy Verified 06/10/19 22:00 Home Medications: Home Medication List Medication Instructions Recorded Confirmed Last Taken Type Amiodarone [Cordarone] 1 tab PO DAILY 03/08/17 05/31/19 05/18/19 History 1 Aspirin [Ecotrin] 81 mg PO DAILY 03/08/17 05/31/19 05/15/19 History 81 Levothyroxine [Synthroid] 75 microgm PO DAILY 03/08/17 05/21/19 05/18/19 History 75 Pantoprazole [Protonix] 1 tab PO DAILY 03/08/17 05/21/19 05/18/19 History 1 Nitroglycerin [Nitrostat] 0.4 mg SL DIRECTED #30 tab.subl 06/12/17 05/21/19 Unknown Rx Potassium Chloride [Klor-Con 10] 10 meq PO TID 01/01/18 05/31/19 05/18/19 History 10 Atorvastatin Calcium [Lipitor] 80 mg PO QAM 03/30/19 05/21/19 05/18/19 History 80 Insulin Degludec [Tresiba 30 unit SQ QHS 03/30/19 05/21/19 05/18/19 History Flextouch U-100] 30 Isosorbide Mononitrate E.r. [Imdur] 30 mg PO QAM 03/30/19 05/31/19 05/18/19 History 30 Sacubitril/Valsartan [Entresto 24 1 dose PO BID 03/30/19 05/31/19 05/18/19 History mg-26 mg Tablet] 1 Sitagliptin [Januvia] 50 mg PO QAM 03/30/19 05/31/19 05/18/19 History 50 Apixaban [Eliquis] 2.5 mg PO BID tab 06/10/19 Unknown Rx Bumetanide [Bumex] 1 mg PO DAILY tab 06/10/19 Unknown Rx Fluconazole [Diflucan] 100 mg PO DAILY #10 tab 06/10/19 Unknown Rx Metoclopramide HCl [Reglan] 5 mg PO 4XDAY #120 tab 06/10/19 Unknown Rx Nitrofurantoin Davison/Macrocryst 100 mg PO DAILY #20 cap 06/10/19 Unknown Rx [Macrobid] - History of Present Illness -Gen Adult Nature of Presenting Problems: 64yom presents to ED by EMS cc too much insulin. Pt reports he accidentally turned the insulin pen to 30 instead of 20. Niece is at bedside and reports pt w rigoberto told her that she believes pt did it on purpose because he told her to tell their daughter he loved her before it happened. Pt has just undergone multiple surgeries to increase circulation in legs, was sent to rehab and then sent back to hospital for kidney failure. Pt was just discharged from this morning. Pt is bedridden. Pt has hx of DM and CA. Review of Systems - Adult - REVIEW OF SYSTEMS - ADULT Constitutional: reports: see HPI. denies: chills, fever, fatique Eyes: reports: no symptoms reported Ears, Nose, Mouth & Throat: reports: no symptoms reported Cardiovascular: reports: no symptoms reported Respiratory: reports: no symptoms reported Gastrointestinal: reports: no symptoms reported Genitourinary: reports: no symptoms reported Musculoskeletal: reports: no symptoms reported Integumentary: reports: no symptoms reported Neurological: reports: no symptoms reported Psychiatric: reports: no symptoms reported Endocrine: reports: see HPI, other (took too much insulin) Hematologic/Lymphatic: reports: no symptoms reported Allergic/Immunologic: reports: no symptoms reported All Other Systems: Reviewed and Negative Past History - Adult - PAST MEDICAL HISTORY-ADULT Review of Records: reports: Nursing Assessment Review, Medications Reviewed, Social history reviewed & non-contributory. Major Childhood Illnesses: reports: denies history Cardiovascular: reports: CAD, CHF, HTN, hyperlipidemia Respiratory: reports: sleep apnea Gastrointestinal: reports: GERD Obstetrical/Gynecological: reports: denies history Genitourinary: reports: denies history Musculoskeletal: reports: denies history Neurological: reports: denies history Endocrine/Immune: reports: Diabetes, thyroid disorder Other Conditions: reports: denies history - PRIOR SURGERIES/PROCEDURES Surgical/Procedure History: reports: CABG, tonsillectomy, other (vascular surgery bilateral legs) - IMMUNIZATION STATUS Childhood Immunizations: See Nurse Assessment Flu Vaccine: See Nurse Assessment - FAMILY HISTORY Family History: reviewed, not pertinent Physical Exam-General - PHYSICAL EXAM-ADULT Initial Vital Signs Reviewed: Yes - CONSTITUTIONAL General Appearance: alert, moderate distress. negative: anxious, combative - EYES Eyes: PERRL/EOMI, pink conjunctivae. negative: photophobia - HEAD, EARS, NOSE, MOUTH & THROAT HENMT: normocephalic/atraumatic, moist mucous membranes. negative: angioedema - RESPIRATORY Respiratory: chest non-tender, lungs clear, normal breath sounds. negative: wheezing - CARDIOVASCULAR Cardiovascular: normal peripheral pulses, regular rate, rhythm. negative: bradycardia, tachycardia - GASTROINTESTINAL (ABDOMEN) Abdominal Exam: normal bowel sounds, non tender. negative: tenderness - SKIN Integumentary: other (dried blood on different places on body). negative: diaphoresis, jaundice - PSYCHIATRIC Psych/Mental Status: normal mood/affect, oriented x 3, disheveled, depressed affect. negative: anxious Progress - PLAN OF CARE/RESULTS Progress/Plan/Lab Results: Vital Signs - 8 hr 06/10/19 21:56 06/10/19 22:42 Temperature 98.8 F Pulse Rate 84 83 Respiratory Rate 28 H 31 H Blood Pressure 91/45 94/47 O2 Sat by Pulse Oximetry 97 98 - CONSULTS/PCP/HOSPITALIST Notification #1 *Consult/PCP/Hospitalist*: Dr. Red Time Discussed: 22:49 Consult Disposition: other (wants us to call hospitalist for [facility] and ask him to admit b/c he is a Dr. Peoples pt) #2 Consult: Dr. Mccarty Time Discussed: 23:20 Consult Disposition: Admit (agreed to admit pt and him to be transferred to [facility]) Departure - Departure Date of Disposition Decision: 06/10/19 Time of Disposition Decision: 23:21 DIAGNOSIS: Suicidal ideations Overdose of insulin Qualifiers: Encounter type: initial encounter Injury intent: undetermined intent Qualified Code(s): T38.3X4A - Poisoning by insulin and oral hypoglycemic [antidiabetic] drugs, undetermined, initial encounter Disposition: ADMITTED INPATIENT Certified Medical Emergency: Emergent Condition: Stable - Critical Care Note This patient required my direct & personal management of CC.: No Attestation - Physician/ MARJAN Attestation Patient care was provided by Advanced Practice Provider:: No The physician spent face to face time with patient:: Yes Advanced Practice Provider documentation review:: Supervising physician onsite and consulted in the evaluation and care of this patient. The physician did have a face to face encounter with the patient. This chart was documented by the indicated scribe, (Laura Baer, Scribe) and accurately reflects the services I performed and decisions made by me, Benigno Thorpe MD, as attested by the provider's signature.
[2019-06-11 00:07] LABS: ALBUMIN 4.1 g/dL (3.5-5.0); CALCIUM 8.9 mg/dL (8.8-10.2); CREATININE 2.3 mg/dL (0.7-1.2); POTASSIUM 4.3 mmol/L (3.5-5.1); TOTAL BILIRUBIN 0.4 mg/dL (0.20-1.00); TOTAL PROTEIN 7.2 g/dL (6.3-8.3)
[2019-06-11] MEDS ORDERED: D50W SYRINGE IV PRN (01:21)
[2019-06-11] MEDS ORDERED: D5 1/2 NS 1,000 ML IV ONE ×2 (02:29→20:00)
[2019-06-11] MEDS ORDERED: TYLENOL WITH CODEINE #3 PO ONE (02:29)
[2019-06-11] MEDS ORDERED: NORCO-5 PO ONE (04:06)
[2019-06-11] MEDS ORDERED: DEMEROL IV ONE (06:33)
--- NOTE | 2019-06-11 06:45 | EKG Report ---
Test Performed on : 06/11/2019 06:43:05 AM Test Reason : emboli Blood Pressure : / mmHG Vent. Rate : 084 BPM Atrial Rate : 074 BPM P-R Int : 000 ms QRS Dur : 122 ms QT Int : 416 ms P-R-T Axes : 000 030 170 degrees QTc Int : 491 ms Undetermined rhythm Left bundle branch block Abnormal ECG When compared with ECG of 30-MAY-2019 20:26, (Unconfirmed) Current undetermined rhythm precludes rhythm comparison, needs review Unconfirmed Result
[2019-06-11] MEDS ORDERED: PRILOSEC PO SCH (07:00)
[2019-06-11] MEDS ORDERED: BUMEX PO SCH (09:00)
[2019-06-11] MEDS ORDERED: ELIQUIS PO SCH (09:00)
[2019-06-11] MEDS ORDERED: CORDARONE PO SCH (09:00)
[2019-06-11] MEDS ORDERED: ASPIRIN EC PO SCH (09:00)
[2019-06-11] MEDS: JANUVIA PO SCH (09:28)
[2019-06-11] MEDS: ULTRACET 37.5MG/325MG PO PRN ×3 (09:28→23:31)
[2019-06-11] MEDS: ENTRESTO 24 MG-26 MG TABLET PO SCH ×2 (09:28→20:05)
[2019-06-11] MEDS: REGLAN PO SCH ×4 (09:29→20:06)
[2019-06-11] MEDS: IMDUR PO SCH (09:30)
[2019-06-11] MEDS: SYNTHROID PO SCH (09:30)
[2019-06-11] MEDS: LIPITOR PO SCH (09:39)
[2019-06-11] MEDS: HUMALOG SUBQ SCH ×3 (13:38→21:00)
[2019-06-11] MEDS: D5 1/2 NS 1,000 ML IV ONE (20:04)
[2019-06-11] MEDS: ELIQUIS PO SCH (20:05)
[2019-06-12] MEDS: HUMALOG SUBQ SCH ×4 (06:12→22:21)
[2019-06-12] MEDS: PRILOSEC PO SCH (06:13)
[2019-06-12] MEDS: ASPIRIN EC PO SCH (08:04)
[2019-06-12] MEDS: ENTRESTO 24 MG-26 MG TABLET PO SCH ×2 (08:04→20:17)
[2019-06-12] MEDS: IMDUR PO SCH (08:04)
[2019-06-12] MEDS: BUMEX PO SCH (08:04)
[2019-06-12] MEDS: ELIQUIS PO SCH ×2 (08:05→20:16)
[2019-06-12] MEDS: SYNTHROID PO SCH (08:05)
[2019-06-12] MEDS: REGLAN PO SCH ×4 (08:05→20:16)
[2019-06-12] MEDS: CORDARONE PO SCH (08:06)
[2019-06-12] MEDS: JANUVIA PO SCH (08:06)
[2019-06-12] MEDS: LIPITOR PO SCH (08:09)
[2019-06-12] MEDS ORDERED: ASPIRIN EC PO SCH (09:00)
[2019-06-12] MEDS ORDERED: BUMEX PO SCH (09:00)
[2019-06-12] MEDS: ULTRACET 37.5MG/325MG PO PRN ×2 (11:08→20:15)
[2019-06-12] MEDS: DIFLUCAN PO SCH (11:13)
[2019-06-12] MEDS: D5 1/2 NS 1,000 ML IV ONE (15:18)
[2019-06-12] MEDS: ZANAFLEX PO SCH (20:16)
--- NOTE | 2019-06-12 21:55 | PROGRESS NOTE ---
DATE: 06/12/2019 SUBJECTIVE: The patient is still passive-aggressive behavior. Waiting for psych evaluation. Not eating well. Complains of leg cramps. OBJECTIVE: Vital signs: Temperature is 98.5, pulse 69, blood pressure is stable. HEENT exam: Within normal limits. Neck: Is supple. Chest: Has bilateral air entry. Heart: Heart sounds are regular. Abdomen: Belly is soft, nontender. Neurologic: No obvious deficits. LABORATORY DATA: Blood sugars are running fine. ASSESSMENT AND PLAN: 1. Suicidal attempt. Medically stable. Waiting for psych evaluation. 2. Discussed with . Living will, Do Not Resuscitate. 3. The patient also requested palliative care consult. Continue IV fluids. I added on Zanaflex for muscle spasms and continue present treatment. 4. Candiduria on fluconazole 100 mg daily. LEVEL OF DOCUMENTATION: 15 minutes. cc: Renzo Peoples MD
[2019-06-13] MEDS: HUMALOG SUBQ SCH ×4 (06:37→21:31)
[2019-06-13] MEDS: PRILOSEC PO SCH (06:38)
[2019-06-13] MEDS: ULTRACET 37.5MG/325MG PO PRN ×3 (06:39→21:29)
[2019-06-13] MEDS: ENTRESTO 24 MG-26 MG TABLET PO SCH ×2 (08:23→21:28)
[2019-06-13] MEDS: ELIQUIS PO SCH ×2 (08:23→21:28)
[2019-06-13] MEDS: IMDUR PO SCH (08:23)
[2019-06-13] MEDS: DIFLUCAN PO SCH (08:24)
[2019-06-13] MEDS: CORDARONE PO SCH (08:24)
[2019-06-13] MEDS: BUMEX PO SCH (08:24)
[2019-06-13] MEDS: ASPIRIN EC PO SCH (08:24)
[2019-06-13] MEDS: JANUVIA PO SCH (08:24)
[2019-06-13] MEDS: SYNTHROID PO SCH (08:24)
[2019-06-13] MEDS: REGLAN PO SCH ×4 (08:24→21:28)
[2019-06-13] MEDS: LIPITOR PO SCH (08:24)
[2019-06-13] MEDS: ZANAFLEX PO SCH (21:29)
--- NOTE | 2019-06-13 22:01 | PROGRESS NOTE ---
DATE: 06/13/2019 SUBJECTIVE: The patient still complains of pain. One on 1 suicide precaution. Waiting for psych consult. Medically stable. REVIEW OF SYSTEMS: None reported. OBJECTIVE: Vital Signs: Temperature is 98.7 degrees, pulse 67, blood pressure is 110/72. HEENT Exam: Within normal limits. Chest: Clear. Heart: Sounds are regular. Abdomen: Belly is soft, nontender. Neurologic: No obvious deficits. INVESTIGATIONS: None reported. Blood sugars fine. ASSESSMENT AND PLAN: 1. Psychiatric depression with a suicidal overdose. Waiting for psych evaluation. 2. Hypoglycemia is better. Continue present treatment. Medically stable. Waiting for psych evaluation. I am going to discuss with the patient's about palliative care and we will follow up. LEVEL OF DOCUMENTATION: 15 minutes. cc: Renzo Peoples MD
[2019-06-14] MEDS: PRILOSEC PO SCH (06:01)
[2019-06-14] MEDS: HUMALOG SUBQ SCH ×2 (06:03→11:53)
[2019-06-14] MEDS: ELIQUIS PO SCH (08:29)
[2019-06-14] MEDS: REGLAN PO SCH (08:29)
[2019-06-14] MEDS: JANUVIA PO SCH (08:29)
[2019-06-14] MEDS: LIPITOR PO SCH (08:29)
[2019-06-14] MEDS: BUMEX PO SCH (08:30)
[2019-06-14] MEDS: ENTRESTO 24 MG-26 MG TABLET PO SCH (08:30)
[2019-06-14] MEDS: ULTRACET 37.5MG/325MG PO PRN (08:30)
[2019-06-14] MEDS: CORDARONE PO SCH (08:30)
[2019-06-14] MEDS: SYNTHROID PO SCH (08:30)
[2019-06-14] MEDS: ASPIRIN EC PO SCH (08:30)
[2019-06-14] MEDS: IMDUR PO SCH (08:30)
[2019-06-14] MEDS: DIFLUCAN PO SCH (08:30)
[2019-06-14 11:54] VITALS: BP 95/40
--- NOTE | 2019-06-16 17:34 | DISCHARGE SUMMARY ---
ADMISSION DATE: 06/11/2019 DISCHARGE DATE: 06/14/2019 DISCHARGING DIAGNOSES: 1. Altered mental status due to suicidal overdose. 2. Candiduria with yeast infection. 3. Recently treated Escherichia coli. 4. Complicated diabetes with neuropathy. 5. Chronic systolic heart failure with ejection fraction of 30% due to ischemic cardiomyopathy status post automated implantable cardioverter-defibrillator. 6. Paroxysmal atrial fibrillation. 7. Sleep apnea. 8. Acid reflux disease. 9. Left leg cellulitis is improving. 10. Peripheral arterial disease with by bilateral aortobifemoral graft. BRIEF HISTORY: Please see the H and P that was done by hospitalist. In brief, he is a 64-year- old white gentleman recently discharged home after treating with UTI due to E coli associated with candiduria. Obviously, the patient was upset with the and started injecting too much insulin and tried to kill himself. The patient was brought in hypoglycemic. Patient was started on IV D5W. Insulin was stopped. Palliative Care consult and mental health evaluation was done. Patient was on 1 on 1 suicide precautions. The patient was supposed to go to [facility]. Other options are discussed for palliative care. He also has a living will DNR. I spoke with the extensively and she wants to bring him home with [facility] and site evaluation. Also, we will evaluate for hospice. LABS: White cell count 12.6, hematocrit 33, platelets 348,000. Sodium 138, potassium 4.3, BUN 56, creatinine 2.3, glucose 152. DISCHARGE INSTRUCTIONS ARE FOLLOWS: Aspirin 81 mg daily, Protonix 40 mg daily, Synthroid 75 mcg daily, Cordarone 200 daily, nitroglycerin as needed, Lipitor 80 daily, Tresiba 20 units at bedtime, Entresto one tablet p.o. b.i.d., Januvia 50 in the morning and , Bumex 1 mg daily, Diflucan 100 mg daily, Reglan 5 mg 4 times daily, Eliquis 2.5 b.i.d. outpatient mental health evaluation living will DNR. Palliative Care consult will be initiated. cc: Renzo Peoples MD MTDD
== END 2019-06-14 13:44 | disposition home health service (06) ==
LOC: P.ED 22:01 → 3N 22:01 → SUATTDRO 06-11 06:39 → SUPCPDRO 06-11 06:39
PROVIDERS: ADMIT Internal Medicine; ATTEND Internal Medicine

== ENCOUNTER 2019-07-05 16:10 | Inpatient (IN) ==
--- NOTE | 2019-07-05 16:42 | Diag Imaging Result Doc PS360 ---
CT HEAD W/O CONTRAST - 07/05/2019 INDICATION: ams COMPARISON: 01/04/2018 FINDINGS: Stable old lacunae in the right caudate head. Stable mild periventricular white matter chronic microvascular disease. The ventricles and sulci are normal in size and contour. No intracranial mass or hemorrhage. The skull is intact. The sinuses are clear. IMPRESSION: No acute disease or change from prior. This exam was performed using automated exposure control, adjustment of mA or kV according to patient size, and/or use of iterative reconstruction technique Electronically signed by Rogelio Sheth 07/05/2019 4:40 PM
--- NOTE | 2019-07-05 17:56 | PROVIDER DOCUMENTATION ---
This chart was entered by Suzanne Sargent Scribe, acting as scribe for Amairani Galvan MD. HPI-Neurological Disorder - General Chief Complaint: Altered Mental Status Stated Complaint: AMS Time Seen by Provider: 07/05/19 16:58 Source: EMS Allergies/Adverse Reactions: Patient Allergies Allergy/AdvReac Type Severity Reaction Status Date / Time No Known Allergies Allergy Verified 06/10/19 22:00 Home Medications: Home Medication List Medication Instructions Recorded Confirmed Last Taken Type Amiodarone [Cordarone] 1 tab PO DAILY 03/08/17 06/11/19 05/18/19 History 1 Aspirin [Ecotrin] 81 mg PO DAILY 03/08/17 06/11/19 05/15/19 History 81 Levothyroxine [Synthroid] 75 microgm PO DAILY 03/08/17 06/11/19 05/18/19 History 75 Pantoprazole [Protonix] 1 tab PO DAILY 03/08/17 06/11/19 05/18/19 History 1 Nitroglycerin [Nitrostat] 0.4 mg SL DIRECTED #30 tab.subl 06/12/17 06/11/19 Unknown Rx Atorvastatin Calcium [Lipitor] 80 mg PO QAM 03/30/19 06/11/19 05/18/19 History 80 Isosorbide Mononitrate E.r. [Imdur] 30 mg PO QAM 03/30/19 06/11/19 05/18/19 History 30 Sacubitril/Valsartan [Entresto 24 1 dose PO BID 03/30/19 06/11/19 05/18/19 History mg-26 mg Tablet] 1 Sitagliptin [Januvia] 50 mg PO QAM 03/30/19 06/11/19 05/18/19 History 50 Apixaban [Eliquis] 2.5 mg PO BID tab 06/10/19 06/11/19 Unknown Rx Bumetanide [Bumex] 1 mg PO DAILY tab 06/10/19 06/11/19 Unknown Rx Fluconazole [Diflucan] 100 mg PO DAILY #10 tab 06/10/19 06/11/19 Unknown Rx Metoclopramide HCl [Reglan] 5 mg PO 4XDAY #120 tab 06/10/19 06/11/19 Unknown Rx Insulin Degludec [Tresiba 20 unit SQ HS #1 doni 06/14/19 Unknown Rx Flextouch U-100] - History of Present Illness-Neuro Nature of Presenting Problem: Patient is a 64 year old male who presents to the ED via EMS for increase in confusion. EMS states patient is on hospice and the family called hospice about the confusion. EMS reports hospice informed the family to not have the patient transferred to the ED but the family did. Severity: reports: mild Onset/Duration: reports: unsure Timing: reports: still present Context: reports: other (AMS) Character of Altered Mental Status: reports: confused Similar Symptoms Previously?: Yes Recently seen or treated by another doctor?: Yes Review of Systems - Adult - REVIEW OF SYSTEMS - ADULT ROS:: unobtainable per condition Constitutional: reports: no symptoms reported Eyes: reports: no symptoms reported Ears, Nose, Mouth & Throat: reports: no symptoms reported Cardiovascular: reports: no symptoms reported Respiratory: reports: no symptoms reported Gastrointestinal: reports: no symptoms reported Genitourinary: reports: no symptoms reported Musculoskeletal: reports: no symptoms reported Integumentary: reports: no symptoms reported Neurological: reports: no symptoms reported Psychiatric: reports: no symptoms reported Endocrine: reports: no symptoms reported Hematologic/Lymphatic: reports: no symptoms reported Allergic/Immunologic: reports: no symptoms reported All Other Systems: Reviewed and Negative Past History - Adult - PAST MEDICAL HISTORY-ADULT Review of Records: reports: Old Records Reviewed, Social history reviewed & non- contributory. Major Childhood Illnesses: reports: denies history Cardiovascular: reports: CAD, CHF, HTN, hyperlipidemia, pacemaker Respiratory: reports: sleep apnea Gastrointestinal: reports: GERD Obstetrical/Gynecological: reports: denies history Genitourinary: reports: denies history Musculoskeletal: reports: denies history Neurological: reports: denies history Endocrine/Immune: reports: Diabetes, thyroid disorder Other Conditions: reports: denies history - PRIOR SURGERIES/PROCEDURES Surgical/Procedure History: reports: CABG, pacemaker, tonsillectomy, other (vascular surgery bilateral legs) - IMMUNIZATION STATUS Childhood Immunizations: See Nurse Assessment Flu Vaccine: See Nurse Assessment - FAMILY HISTORY Family History: reviewed, not pertinent - SOCIAL HISTORY Smoking: other (unable to obtain per patient's condition) Substance Use: other (unable to obtain per patient's condition) Living Situation: family Physical Exam- Neurological - Physical Exam-Neuro Initial Vital Signs Reviewed: Yes General Appearance: no apparent distress, lethargic. negative: obtunded Eye Exam: bilateral eye: normal inspection HENMT: normocephalic/atraumatic, moist mucous membranes. negative: angioedema Head Injury: no evidence of injury. negative: active bleeding, ecchymosis Respiratory: chest non-tender, lungs clear, normal breath sounds. negative: rhonchi, stridor Cardiovascular: normal peripheral pulses, regular rate, rhythm. negative: tachycardia Abdominal Exam: normal bowel sounds, non tender, soft. negative: guarding, r ebound Extremity: other (ulcerative dermatitis to bilateral lower extremities. foot igor p bilaterally). 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 negative: abrasion(s), rash Psych/Mental Status: other (lethargic). negative: anxious, paranoid Progress - PLAN OF CARE/RESULTS Progress/Plan/Lab Results: Vital Signs - 8 hr 07/05/19 16:46 Temperature 97.7 F Pulse Rate 83 Respiratory Rate 22 Blood Pressure 118/94 O2 Sat by Pulse Oximetry 99 Laboratory Results - last 24 hr 07/05/19 07/05/19 07/05/19 17:02 17:38 17:38 WBC 7.97 RBC 4.78 Hgb 12.4 L Hct 39.9 L MCV 83.5 MCH 25.9 L MCHC 31.1 L RDW Std Deviation 18.1 H Plt Count 287 MPV 11.6 H Immature Gran % (Auto) 0.0 Neut % (Auto) 85.3 H Lymph % (Auto) 7.7 L [place] % (Auto) 5.3 Eos % (Auto) 1.3 Baso % (Auto) 0.4 Immature Gran # (Auto) 0.00 Neut # (Auto) 6.81 H Lymph # (Auto) 0.61 L [place] # (Auto) 0.42 Eos # (Auto) 0.10 Baso # (Auto) 0.03 PT INR PTT (Actin FS) Sodium 138 Potassium 4.3 Chloride 98 Carbon Dioxide 21 L Anion Gap 19 BUN 26 H Creatinine 1.8 H Estimated GFR/1.73 m2 38 BUN/Creatinine Ratio 14 Glucose 172 H POC Glucose 181 H Calculated Osmolality 285 Calcium 10.0 Total Bilirubin 0.66 AST 14 ALT 9 L Alkaline Phosphatase 194 H Creatine Kinase 37 Troponin T Total Protein 8.8 H Albumin 4.3 Globulin 4.5 Albumin/Globulin Ratio 1.0 Plasma Lactate 07/05/19 07/05/19 07/05/19 17:38 17:38 17:38 WBC RBC Hgb Hct MCV MCH MCHC RDW Std Deviation Plt Count MPV Immature Gran % (Auto) Neut % (Auto) Lymph % (Auto) [place] % (Auto) Eos % (Auto) Baso % (Auto) Immature Gran # (Auto) Neut # (Auto) Lymph # (Auto) [place] # (Auto) Eos # (Auto) Baso # (Auto) PT 16.5 H INR 1.31 PTT (Actin FS) 34.9 Sodium Potassium Chloride Carbon Dioxide Anion Gap BUN Creatinine Estimated GFR/1.73 m2 BUN/Creatinine Ratio Glucose POC Glucose Calculated Osmolality Calcium Total Bilirubin AST ALT Alkaline Phosphatase Creatine Kinase Troponin T 0.040 Total Protein Albumin Globulin Albumin/Globulin Ratio Plasma Lactate 1.6 Orders Category Date Time Status Cardiac Monitoring DIRECTED Care 07/05/19 17:07 Active IV Insertion ORDERED Care 07/05/19 17:07 Completed Notify MD of + Sepsis Screen NOW Care 07/05/19 17:07 Active Notify Physician As Ordered Care 07/05/19 17:07 Active CHEST-1 VIEW [RAD] Stat Exams 07/05/19 17:[address] HEAD W/O CONTRAST [CT] Stat Exams 07/05/19 16:25 Completed BLOOD CULTURE [BLDCUL] Stat Lab 07/05/19 17:33 Received CBC WITH DIFF [HEME] Stat Lab 07/05/19 17:38 Completed CK PROFILE [SP CHEM] Stat Lab 07/05/19 17:38 Completed COMPREHENSIVE METABOLIC PANEL [CHEM] Stat Lab 07/05/19 17:38 Completed LACTATE, PLASMA [CHEM] Lab 07/05/19 17:38 Completed LACTATE, PLASMA [CHEM] Lab 07/05/19 20:15 Uncollected LACTATE, PLASMA [CHEM] Lab 07/05/19 23:15 Uncollected PROTIME WITH INR [COAG] Stat Lab 07/05/19 17:38 Completed PTT [COAG] Stat Lab 07/05/19 17:38 Completed TROPONIN T Stat Lab 07/05/19 17:38 Completed URINALYSIS W/POSS RFLX CULT [URINALYSIS] Stat Lab 07/05/19 17:07 Uncollected Oxygen Device Stat Oth 07/05/19 17:07 Active Result Diagrams: 07/05/19 17:38 07/05/19 17:38 - CT/MRI 1 CT Study: Head Impression: See EMR Report ( CT HEAD W/O CONTRAST - 07/05/2019 INDICATION: ams COMPARISON: 01/04/2018 FINDINGS: Stable old lacunae in the right caudate head. Stable mild periventricular white matter chronic microvascular disease. The ventricles and sulci are normal in size and contour. No intracranial mass or hemorrhage. The skull is intact. The sinuses are clear. IMPRESSION: No acute disease or change from prior. This exam was performed using automated exposure control, adjustment of mA or kV according to patient size, and/or use of iterative reconstruction technique Electronically signed by Rogelio Sheth 07/05/2019 4:40 PM 07/05/19 1640 Interpreting Physician: Rogelio Sheth MD Dictated Date/Time: 07/05/19 8983 cc: Amairani Galvan MD;) - CONSULTS/PCP/HOSPITALIST Notification #1 *Consult/PCP/Hospitalist*: Julieta Time Discussed: 19:01 Consult Disposition: Admit (OK to admit) Departure - Departure Date of Disposition Decision: 07/05/19 Time of Disposition Decision: 19:01 DIAGNOSIS: CHF (congestive heart failure) Qualifiers: Heart failure type: unspecified Heart failure chronicity: acute on chronic Qualified Code(s): I50.9 - Heart failure, unspecified AMS (altered mental status) Qualifiers: Altered mental status type: somnolence Qualified Code(s): R40.0 - Somnolence Disposition: ADMITTED INPATIENT 09 Certified Medical Emergency: Emergent Condition: Good Referrals and Follow-Ups: Manisha Peoples MD [Primary Care Provider] - - Critical Care Note This patient required my direct & personal management of CC.: No Attestation - Physician/ MARJAN Attestation Patient care was provided by Advanced Practice Provider:: No The physician spent face to face time with patient:: Yes Advanced Practice Provider documentation review:: Supervising physician onsite and consulted in the evaluation and care of this patient. The physician did have a face to face encounter with the patient. This chart was documented by the indicated scribe, (Suzanne Sargent Scribe) and accurately reflects the services I performed and decisions made by , Amairani Galvan MD, as attested by the provider's signature.
[2019-07-05 18:03] LABS: BASO# 0.03 X1000 (0.0-0.2); BASO% 0.4 % (0.0-0.8); EOS% 1.3 % (0.0-10.0); HEMATOCRIT 39.9 % (42.0-52.0); HEMOGLOBIN 12.4 g/dL (14.0-18.0); LYMPH# 0.61 X1000 (1.2-3.4); LYMPH% 7.7 % (20.5-51.1); MCH 25.9 PG (27-31); MCHC 31.1 g/dL (33-37); MCV 83.5 FL (81-99); MONO# 0.42 X1000 (0.11-0.59); MONO% 5.3 % (1.7-9.3); MPV 11.6 FL (7.4-10.4); NEUT# 6.81 X1000 (1.4-6.5); NEUT% 85.3 % (42.2-75.2); PLT 287 X1000 (130-400); RBC 4.78 XMIL (4.7-6.1); RDW 18.1 % (11.5-14.5); WBC 7.97 X1000 (4.8-10.8)
--- NOTE | 2019-07-05 18:07 | Diag Imaging Result Doc PS360 ---
CHEST-1 VIEW - 07/05/2019 INDICATION: decreased mental status COMPARISON: 05/30/2019 FINDINGS: Stable pacemaker and sternotomy changes. Stable cardiomegaly and pulmonary vascular congestion. No definite infiltrates or edema. No large pleural effusion. IMPRESSION: Cardiomegaly and pulmonary vascular congestion. Electronically signed by Rogelio Sheth 07/05/2019 6:06 PM
[2019-07-05 18:08] LABS: INR 1.31; PROTIME 16.5 Seconds (11.0-16.0)
[2019-07-05 18:09] LABS: PTT 34.9 Seconds (22.3-41.8)
--- NOTE | 2019-07-05 18:21 | ED EKG INTERP ---
This chart was entered by Robe Frederick Scribe, acting as scribe for Amairani Galvan MD. EKG Interpretation - EKG Time of EKG reading by physician:: 17:45 EKG Read and Signed by:: Amairani Galvan EKG Interpretation (*Must complete 3 of following elements*): Abnormal Rate: 73 Rhythm: wide QRS [place]: left QRS: LBB Attestation - Physician/ MARJAN Attestation Patient care was provided by Advanced Practice Provider:: No The physician spent face to face time with patient:: Yes Advanced Practice Provider documentation review:: Supervising physician onsite and consulted in the evaluation and care of this patient. The physician did have a face to face encounter with the patient. This chart was documented by the indicated scribe, (Robe Frederick Scribe) and accurately reflects the services I performed and decisions made by me, Amairani Galvan MD, as attested by the provider's signature.
[2019-07-05 18:24] LABS: ALBUMIN 4.3 g/dL (3.5-5.0); CREATININE 1.8 mg/dL (0.7-1.2); POTASSIUM 4.3 mmol/L (3.5-5.1); TOTAL BILIRUBIN 0.66 mg/dL (0.20-1.00); TOTAL PROTEIN 8.8 g/dL (6.3-8.3)
[2019-07-05] MEDS ORDERED: TYLENOL PO PRN (19:03)
[2019-07-05] MEDS ORDERED: ZOFRAN IV PRN ×2 (19:03→20:44)
[2019-07-05] MEDS ORDERED: MORPHINE IV PRN ×2 (19:03→20:44)
[2019-07-05 19:06] LABS: URINE SOURCE CATH
[2019-07-05 19:12] LABS: BILIRUBIN URINE NEGATIVE (NEGATIVE); BLOOD URINE TRACE (NEGATIVE); COLOR YELLOW; GLUCOSE URINE 200 mg/dL (NEGATIVE); KETONE URINE 10 mg/dL (NEGATIVE); LEUKOCYTES URINE NEGATIVE (NEGATIVE); NITRITE URINE NEGATIVE (NEGATIVE); PH URINE 5.5; PROTEIN URINE 50 mg/dL (NEGATIVE); SP GRAVITY URINE 1.015; TURBIDITY URINE CLEAR (CLEAR); UR EPITHELIAL CELLS <10 /HPF (<10); URINE BACTERIA NEGATIVE /HPF; URINE RBC <10 /HPF (<10); URINE WBC <10 /HPF (<10); UROBILINOGEN URINE NORMAL (NORMAL)
[2019-07-05] MEDS: ZOSYN 3.375 GM in NS 50 ML IV SCH (20:18)
[2019-07-05] MEDS ORDERED: NITROGLYCERIN SL SCH (20:44)
[2019-07-05] MEDS ORDERED: SODIUM CHLORIDE 0.9% INJ ONE (20:44)
[2019-07-05] MEDS ORDERED: HUMULIN R SUBQ SCH (21:00)
[2019-07-05] MEDS ORDERED: POTASSIUM CHLORIDE 10 MEQ in NS 1,000 ML IV ONE (21:30)
[2019-07-05 22:46] LABS: URINE SOURCE CATH
[2019-07-05] MEDS: PROTONIX IV SCH (23:06)
[2019-07-05] MEDS: LIPITOR PO SCH (23:12)
[2019-07-05] MEDS: ELIQUIS PO SCH (23:12)
[2019-07-05] MEDS: ENTRESTO 24 MG-26 MG TABLET PO SCH (23:12)
[2019-07-05 23:34] LABS: UR EPITHELIAL CELLS <10 /HPF (<10); URINE BACTERIA NEGATIVE /HPF; URINE RBC <10 /HPF (<10); URINE WBC <10 /HPF (<10)
[2019-07-05 23:35] LABS: BILIRUBIN URINE NEGATIVE (NEGATIVE); COLOR YELLOW; GLUCOSE URINE 100 mg/dL (NEGATIVE); KETONE URINE 10 mg/dL (NEGATIVE); SP GRAVITY URINE 1.017; TURBIDITY URINE CLEAR (CLEAR)
[2019-07-05 23:36] LABS: BLOOD URINE TRACE (NEGATIVE); LEUKOCYTES URINE NEGATIVE (NEGATIVE); NITRITE URINE NEGATIVE (NEGATIVE); PH URINE 5.5; PROTEIN URINE 50 mg/dL (NEGATIVE); UROBILINOGEN URINE NORMAL (NORMAL)
[2019-07-06] MEDS: ZOSYN 3.375 GM in NS 50 ML IV SCH ×4 (00:47→19:52)
[2019-07-06] MEDS: SYNTHROID PO SCH (06:11)
[2019-07-06 08:04] LABS: BASO# 0.02 X1000 (0.0-0.2); BASO% 0.2 % (0.0-0.8); EOS# 0.18 X1000 (0.0-0.7); EOS% 2.1 % (0.0-10.0); HEMATOCRIT 38.4 % (42.0-52.0); HEMOGLOBIN 11.8 g/dL (14.0-18.0); IMM GRAN# 0.02 X1000 (0.0-0.04); IMM GRAN% 0.2 % (0.0-0.5); LYMPH% 9.4 % (20.5-51.1); MCH 25.7 PG (27-31); MCHC 30.7 g/dL (33-37); MCV 83.7 FL (81-99); MONO# 0.56 X1000 (0.11-0.59); MONO% 6.6 % (1.7-9.3); MPV 11.9 FL (7.4-10.4); NEUT# 6.94 X1000 (1.4-6.5); NEUT% 81.5 % (42.2-75.2); PLT 296 X1000 (130-400); RBC 4.59 XMIL (4.7-6.1); RDW 17.9 % (11.5-14.5); WBC 8.52 X1000 (4.8-10.8)
[2019-07-06 08:30] LABS: AGAP 17; ALB/GLOB RATIO 0.8; ALBUMIN 3.5 g/dL (3.5-5.0); ALKALINE PHOSPHATASE 160 U/L (32-122); BUN 19 mg/dL (8-22); CALCIUM 9.6 mg/dL (8.8-10.2); CHLORIDE 107 mmol/L (98-107); COSMO 292; CREATININE 1.2 mg/dL (0.7-1.2); ESTIMATED GFR > 60; GLUCOSE 154 mg/dL (70-104); GOT 10 U/L (10-34); GPT 7 U/L (10-44); MAGNESIUM 2.1 mg/dL (1.5-2.7); PHOSPHORUS 2.7 mg/dL (2.7-4.5); SODIUM 144 mmol/L (136-145); TCO2 20 mmol/L (25-35); TOTAL BILIRUBIN 0.64 mg/dL (0.20-1.00)
[2019-07-06 08:34] LABS: HEMOGLOBIN A1C 6.8 % (4.8-6.0)
[2019-07-06] MEDS ORDERED: BUMEX PO SCH (09:00)
[2019-07-06 09:06] LABS: TSH 4.4 uIUmL (0.27-4.20)
[2019-07-06] MEDS: ENTRESTO 24 MG-26 MG TABLET PO SCH ×3 (11:00→22:10)
[2019-07-06] MEDS: REGLAN PO SCH ×4 (11:00→18:27)
[2019-07-06] MEDS: ELIQUIS PO SCH ×3 (11:00→22:10)
[2019-07-06] MEDS: IMDUR PO SCH ×2 (11:00→11:24)
[2019-07-06] MEDS: ASPIRIN EC PO SCH ×2 (11:00→11:23)
[2019-07-06] MEDS: PROTONIX IV SCH (11:00)
[2019-07-06] MEDS: CORDARONE PO SCH ×2 (11:01→11:23)
[2019-07-06] MEDS ORDERED: MORPHINE IV PRN (11:09)
[2019-07-06] MEDS ORDERED: LASIX IV SCH (11:15)
[2019-07-06] MEDS ORDERED: MILK OF MAGNESIA PO ONE (11:16)
[2019-07-06] MEDS ORDERED: LINZESS PO ONE (11:17)
--- NOTE | 2019-07-06 13:12 | PROGRESS NOTE ---
DATE: 07/06/2019 SUBJECTIVE: Mr. Duong is doing fair. The patient denied any chest pain or palpitations. No unusual shortness of breath. History part was limited. His blood pressure this morning was low. No dysuria or hematuria. The patient does have Singh catheter. No unusual cough or expectoration. History part is limited. I decided to give him Lasix, but because of low blood pressure I am going to hold IV Lasix. I did talk to his about the patient's condition at home. OBJECTIVE: Vitals: Vital signs noted. Blood pressure low normal. Neck: Supple. No JVD. Lungs: Bibasilar crepitations. Heart: S1 and S2 heard, a 2/6 systolic murmur at the apex. Abdomen: Soft, globular. Bowel sounds present. Extremities: Some disuse atrophy of lower limbs. 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 LABORATORY DATA: Laboratory data done today, WBC count 8.52, hemoglobin 11.8, hematocrit 38.4, platelet count 296,000. Electrolytes were fairly benign. ProBNP was 3513. Vitamin B12 505. TSH was 4.40. I am going to get free T4 from blood in the lab. ASSESSMENT AND PLAN: Patient admitted with altered mental status. I did entertain the possibility of UTI but urinalysis was not impressive. Other consideration now could be due to metabolic encephalopathy secondary to medication effect. The patient was on Haldol, some muscle relaxer and pain medicine from Hospice. The patient does have diabetes mellitus, atrial fibrillation, and ischemic cardiomyopathy. We will encourage oral feeding. Continue the rest of the treatment and close observation. Overall plan discussed at length with the patient's and she is in agreement. Chest x-ray and CT scan results reviewed. cc: MD Rnezo Snow MD
--- NOTE | 2019-07-06 14:03 | HISTORY AND PHYSICAL ---
CHIEF COMPLAINT: Altered mental status. 64-year-old, gentleman, brought to the hospital because of altered mental status. History gotten from ER record and also from the . I talked to her on telephone. According to , the patient was not doing well last 2 days. The patient had increasing confusion, disorientation, hallucination. According to , he was talking out of his head. It was difficult for her to manage him at home. His urine had bad odor and the was concerned about UTI. Oral intake was poor. The patient did not have bowel movement for last 6 days. No nausea or vomiting. At times, patient was moaning and yelling. According to , she does not know what to do and she brought him to the emergency room. The patient evaluated by ER physician. In the ER initial workup was not impressive but because of his presentation of delirium, ER physician decided to admit the patient for further care. Our concern was possible infection, uncompensated heart failure or delirium. The patient denied any nausea or vomiting. No chest pain or palpitations. No abdominal pain. The patient did have constipation. No leg swelling. Occasional cough. No expectoration or hemoptysis. No heat or cold intolerance, unquantified weight loss. No seizure-type episode. No further history available at this time. ALLERGIES: No known drug allergy. CURRENT MEDICATIONS: Includes Eliquis, amiodarone, aspirin, Lipitor, Bumex, Imdur, Synthroid, Reglan, nitroglycerin, Prilosec, Entresto. PAST MEDICAL HISTORY: Significant for coronary artery disease, congestive heart failure, peripheral vascular disease. The patient had superficial femoral artery angioplasty done. Ischemic cardiomyopathy, NIDDM, gastritis and reflux disease, gastroparesis, chronic atrial fibrillation, hypothyroidism, sleep apnea, history of aortofemoral bypass. The patient had a CABG and tonsillectomy done. PERSONAL HISTORY: , lives with the at home. The patient was on hospice, bed-bound and needs assistance in activities of daily living. The wants to discontinue hospice so as patient and they want to consider physical therapy and rehab. FAMILY HISTORY: Noncontributory. REVIEW OF SYSTEMS: As per HPI. Otherwise unobtainable. PHYSICAL EXAMINATION: GENERAL: Elderly white gentleman in mild distress. The patient is very vague and poor historian. Uncooperative for detailed exam. VITAL SIGNS: Blood pressure 118/94, pulse 83, respirations 22, temperature 97.7 degrees. SKIN: Senile turgor. The patient does have some abrasion on the lower legs. HEENT: Head atraumatic, normocephalic. [place] conjunctivae. Anicteric sclerae. Extraocular muscle movement normal. Fundus cannot be penetrated. Good oral hygiene. No tonsillopharyngeal congestion or exudate. Ears and nose benign. NECK: Supple. No JVD, thyromegaly or lymphadenopathy. CHEST: Bilateral good air entry present. No rales or rhonchi. Few basal crepitations. CARDIOVASCULAR: S1 and S2 heard. No gallop or thrill. Irregularly irregular, 2/6 systolic murmur at the apex. ABDOMEN: Soft, globular. Bowel sounds present. EXTREMITIES: No cyanosis, clubbing. No acute DVT. ANALYSIS TESTER: When I evaluated patient in the ER the patient was drowsy, uncooperative for detailed exam though he was able to move all 4 limbs. ADMISSION LABORATORY DATA: Revealed WBC count 7.97, hemoglobin 12.4, hematocrit 39.9, platelet count 287,000. PT/INR 1.31, PTT was 34.9. BUN 26, creatinine 1.8. Alkaline phosphatase 194. CONSIDERATION: Patient admitted with delirium/metabolic encephalopathy. I did not have urinalysis at that time, so possibility of UTI cannot be ruled out. Other consideration was it could be due to medication effect. Patient was getting Haldol and baclofen and morphine from the hospice. His other medical problems includes congestive heart failure due to ischemic cardiomyopathy and systolic dysfunction, chronic atrial fibrillation, diabetes mellitus. No evidence of hypoglycemia. Peripheral vascular disease, gastritis and reflux disease. PLANS: Admit the patient. Telemetry monitoring. Fall precaution. Continue home medicine. Overall plan discussed with the patient's son. I reviewed his CT scan result. There was no acute disease or changes from prior. Patient's EKG revealed wide QRS left bundle branch block. cc: MD Renzo Snow MD
[2019-07-06] MEDS: LIPITOR PO SCH (22:11)
[2019-07-07] MEDS: ZOSYN 3.375 GM in NS 50 ML IV SCH ×4 (00:36→23:03)
[2019-07-07] MEDS: SYNTHROID PO SCH (06:38)
[2019-07-07 07:51] LABS: BASO# 0.04 X1000 (0.0-0.2); BASO% 0.5 % (0.0-0.8); EOS# 0.18 X1000 (0.0-0.7); EOS% 2.1 % (0.0-10.0); HEMATOCRIT 36.5 % (42.0-52.0); HEMOGLOBIN 11.1 g/dL (14.0-18.0); IMM GRAN# 0.04 X1000 (0.0-0.04); IMM GRAN% 0.5 % (0.0-0.5); LYMPH# 0.91 X1000 (1.2-3.4); LYMPH% 10.6 % (20.5-51.1); MCH 25.6 PG (27-31); MCHC 30.4 g/dL (33-37); MCV 84.1 FL (81-99); MONO# 0.54 X1000 (0.11-0.59); MONO% 6.3 % (1.7-9.3); MPV 11.6 FL (7.4-10.4); NEUT# 6.84 X1000 (1.4-6.5); PLT 298 X1000 (130-400); RBC 4.34 XMIL (4.7-6.1); RDW 17.9 % (11.5-14.5); WBC 8.55 X1000 (4.8-10.8)
[2019-07-07] MEDS: PROTONIX IV SCH (08:06)
[2019-07-07] MEDS: CORDARONE PO SCH ×2 (08:07→17:00)
[2019-07-07] MEDS: ASPIRIN EC PO SCH ×2 (08:07→16:58)
[2019-07-07] MEDS: ELIQUIS PO SCH ×3 (08:07→21:45)
[2019-07-07] MEDS: REGLAN PO SCH ×4 (08:08→17:46)
[2019-07-07] MEDS: IMDUR PO SCH ×2 (08:08→16:59)
[2019-07-07] MEDS: ENTRESTO 24 MG-26 MG TABLET PO SCH ×3 (08:08→21:44)
[2019-07-07 08:13] LABS: AGAP 13; ALBUMIN 3.6 g/dL (3.5-5.0); ALKALINE PHOSPHATASE 138 U/L (32-122); BUN 18 mg/dL (8-22); CALCIUM 9.4 mg/dL (8.8-10.2); CHLORIDE 102 mmol/L (98-107); COSMO 277; CREATININE 1.1 mg/dL (0.7-1.2); ESTIMATED GFR > 60; GLUCOSE 126 mg/dL (70-104); GOT 9 U/L (10-34); GPT 6 U/L (10-44); MAGNESIUM 2.1 mg/dL (1.5-2.7); POTASSIUM 3.7 mmol/L (3.5-5.1); SODIUM 137 mmol/L (136-145); TCO2 22 mmol/L (25-35); TOTAL BILIRUBIN 0.56 mg/dL (0.20-1.00); TOTAL PROTEIN 7.3 g/dL (6.3-8.3)
[2019-07-07] MEDS ORDERED: LINZESS PO ONE (11:52)
--- NOTE | 2019-07-07 12:16 | PROGRESS NOTE ---
DATE: 07/07/2019 SUBJECTIVE: Mr. Duong is doing fair. The patient is staying in the bed. At times, confused and disoriented. The patient has some blood in his catheter. He denied any chest pain. No nausea or vomiting. Blood pressure is low-normal. No diarrhea, blood or mucus in the stool. The patient claims he did not have a bowel movement. Oral intake is still poor. The patient does have multiple medical problems. Admitted with delirium. OBJECTIVE: His vital signs noted. Neck: Supple. No JVD. Lungs: Bibasilar crepitations. Heart: S1 and S2. Irregularly irregular. Abdomen: Soft, nontender. Bowel sounds present. Extremities: No cyanosis, clubbing. Some disuse atrophy. No acute vascular compromise or DVT. 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 Able to move all 4 limbs, though uncooperative for detailed exam. Laboratory Data: Done today, WBC count 8.55, hemoglobin 11.1, hematocrit 36.5, platelets 298,000. Electrolytes fairly benign. His TSH was 4.4, free T4 was 1.57. ASSESSMENT AND PLAN: Patient's problems include: 1. Encephalopathy, could be metabolic. Patient does have dementia. I talked to the patient's and according to her, he was not taking a lot of antipsychotic medication. 2. He does have diabetes mellitus. 3. Patient had hematuria, most likely due to traumatic injury from pulling on catheter. 4. Atrial fibrillation. 5. Congestive heart failure. 6. Peripheral vascular disease. 7. Coronary artery disease. 8. Possible gastroparesis 9. I am going to give him Linzess today. Continue rest of the treatment and close observation. cc: MD Renzo Snow MD
[2019-07-07] MEDS: LIPITOR PO SCH (21:45)
[2019-07-07] MEDS: MORPHINE IV PRN (21:46)
[2019-07-08] MEDS: ZOSYN 3.375 GM in NS 50 ML IV SCH ×4 (06:02→22:55)
[2019-07-08] MEDS: SYNTHROID PO SCH (06:02)
[2019-07-08] MEDS: CORDARONE PO SCH (08:06)
[2019-07-08] MEDS: ASPIRIN EC PO SCH (08:06)
[2019-07-08] MEDS: ENTRESTO 24 MG-26 MG TABLET PO SCH ×2 (08:06→20:24)
[2019-07-08] MEDS: IMDUR PO SCH (08:06)
[2019-07-08] MEDS: PROTONIX IV SCH (08:06)
[2019-07-08] MEDS: MORPHINE IV PRN ×3 (08:06→20:26)
[2019-07-08] MEDS: ELIQUIS PO SCH ×2 (08:06→20:25)
[2019-07-08] MEDS: REGLAN PO SCH ×3 (08:06→18:15)
[2019-07-08] MEDS: LIPITOR PO SCH (20:25)
[2019-07-09] MEDS: ZOSYN 3.375 GM in NS 50 ML IV SCH ×4 (04:54→22:23)
[2019-07-09] MEDS: MORPHINE IV PRN ×3 (05:01→20:41)
--- NOTE | 2019-07-09 06:06 | PROGRESS NOTE ---
DATE: 07/08/2019 SUBJECTIVE: A 64-year-old white gentleman was admitted to the hospital on 07/06/2019 under the care of [hospice care revocated came into the hospital with altered mental status, and possible UTI. Interval History was reviewed. H and P was reviewed. PAST MEDICAL HISTORY: Reviewed. PAST SURGICAL HISTORY: Reviewed. MEDICINES: Reviewed. ALLERGIES: Not known. REVIEW OF SYSTEMS: Patient is in a lot of pain. PHYSICAL EXAMINATION: Vital Signs: Temperature is 97 degrees. Vitals are stable. HEENT: Within normal limits. Neck: Supple. Chest: Bilateral air entry. Heart: Sounds are regular. Abdomen: Belly is soft and nontender. Extremities: Pulses on both legs are healing. LABORATORY: CBC: White cell count 8.5, hematocrit 36, and platelets 298,000. Sodium 137, potassium 3.7, chloride 102, BUN 8, creatinine 1.8, and glucose 126. LFTs were normal. Blood cultures were negative. ASSESSMENT AND PLAN: 1. Altered mental status due to metabolic encephalopathy. 2. End-stage ischemic cardiomyopathy. 3. Paroxysmal atrial fibrillation. 4. History of depression. 5. Hyperlipidemia. 6. Hypothyroidism. 7. Peripheral arterial disease in both legs. 8. Possible UTI. PLAN: Discontinue Singh catheter. Living will DNR. Deconditioning. Unable to do physical therapy. Declining performance status. I spoke to the family at bedside, and they want to go for rehab placement at [facility]. [employer] Tender consult. Continue present treatment. LEVEL OF DOCUMENTATION: 25 minutes. cc: Renzo Peoples MD MTDD
[2019-07-09] MEDS ORDERED: SODIUM CHLORIDE 0.9% 10 ML ONE (06:33)
[2019-07-09] MEDS: SYNTHROID PO SCH (06:34)
[2019-07-09] MEDS: ASPIRIN EC PO SCH (09:00)
[2019-07-09] MEDS: ELIQUIS PO SCH ×2 (09:00→20:40)
[2019-07-09] MEDS: ENTRESTO 24 MG-26 MG TABLET PO SCH ×2 (09:00→20:40)
[2019-07-09] MEDS: REGLAN PO SCH ×3 (09:00→16:17)
[2019-07-09] MEDS: IMDUR PO SCH (09:00)
[2019-07-09] MEDS: PROTONIX IV SCH (09:01)
[2019-07-09] MEDS: CORDARONE PO SCH (09:01)
[2019-07-09] MEDS: LIPITOR PO SCH (20:40)
--- NOTE | 2019-07-09 21:05 | PROGRESS NOTE ---
DATE: 07/09/2019 SUBJECTIVE: The patient is withdrawn, asking for more pain medicine. Decreased performance status. Family wants to go for [facility]. REVIEW OF SYSTEMS: Otherwise no change. OBJECTIVE: On exam, temperature is 97 degrees, pulse 64. Vital signs are stable. On 2 L nasal cannula, 97%. HEENT exam within normal limits. Neck is supple. Chest: Bilateral air entry. Heart sounds are regular. Belly is soft, nontender. No obvious deficits. LABORATORY DATA: Urine cultures are pending. Blood cultures are negative. ASSESSMENT AND PLAN: 1. Altered mental status, delirium, improving. 2. Other problems: Paroxysmal atrial fibrillation; ischemic cardiomyopathy; hyperlipidemia; diabetes. Stable. 3. Possible urinary tract infection and left leg cellulitis. Intravenous Zosyn. The patient is getting morphine p.r.n. pain. 4. Living Will: Do Not Resuscitate/Allow Natural . We will check with Religious Leader for [facility]. Consider slowly palliative services. Level of documentation 25 minutes. cc: Renzo Peoples MD
[2019-07-10] MEDS: ZOSYN 3.375 GM in NS 50 ML IV SCH ×4 (04:42→22:46)
[2019-07-10] MEDS: SYNTHROID PO SCH (06:10)
[2019-07-10] MEDS ORDERED: SODIUM CHLORIDE 0.9% 10 ML ONE (06:25)
[2019-07-10] MEDS: REGLAN PO SCH ×4 (09:33→17:32)
[2019-07-10] MEDS: ELIQUIS PO SCH ×3 (09:33→22:47)
[2019-07-10] MEDS: ASPIRIN EC PO SCH ×2 (09:33→10:26)
[2019-07-10] MEDS: PROTONIX IV SCH ×2 (09:34→10:28)
[2019-07-10] MEDS: ENTRESTO 24 MG-26 MG TABLET PO SCH ×3 (09:34→22:47)
[2019-07-10] MEDS: CORDARONE PO SCH ×2 (09:34→10:28)
[2019-07-10] MEDS: IMDUR PO SCH ×2 (09:35→10:27)
[2019-07-10] MEDS: MORPHINE IV PRN ×2 (10:29→22:42)
--- NOTE | 2019-07-10 21:35 | PROGRESS NOTE ---
DATE: 07/10/2019 SUBJECTIVE: The patient is anxious to go home. Unable to get the rehab, and he is medically stable. OBJECTIVE: Vital Signs: On examination, temperature is 98.1 degrees, pulse 76, blood pressure is 130/37, 98% on room air. HEENT: Exam within normal limits. Neck: Supple. No lymphadenopathy. Chest: Clear. Heart: Sounds are irregular. Abdomen: Belly is soft, nontender. Neurologic: No deficits. MICROBIOLOGY: Urine blood cultures are negative. ASSESSMENT AND PLAN: 1. Altered mental status, improving. 2. Depression. 3. Decreased performance status and underlying comorbid conditions. 4. I had a long discussion with the patient's and decided to go home by ambulance tomorrow. Arrange palliative care consult. LEVEL OF DOCUMENTATION: [25]minutes. cc: Renzo Peoples MD MTDD
[2019-07-10] MEDS: LIPITOR PO SCH (22:47)
[2019-07-11] MEDS: SYNTHROID PO SCH ×2 (04:54→06:06)
[2019-07-11] MEDS: ZOSYN 3.375 GM in NS 50 ML IV SCH ×2 (04:54→11:46)
[2019-07-11] MEDS: MORPHINE IV PRN (04:58)
[2019-07-11 07:47] VITALS: BP 123/47
[2019-07-11] MEDS ORDERED: SODIUM CHLORIDE 0.9% INJ SCH (09:00)
[2019-07-11] MEDS: CORDARONE PO SCH (09:39)
[2019-07-11] MEDS: ELIQUIS PO SCH (09:39)
[2019-07-11] MEDS: REGLAN PO SCH (09:39)
[2019-07-11] MEDS: PROTONIX IV SCH (09:39)
[2019-07-11] MEDS: ASPIRIN EC PO SCH (09:39)
[2019-07-11] MEDS: IMDUR PO SCH (09:39)
[2019-07-11] MEDS: ENTRESTO 24 MG-26 MG TABLET PO SCH (09:39)
--- NOTE | 2019-07-12 06:25 | DISCHARGE SUMMARY ---
ADMISSION DATE: 07/05/2019 DISCHARGE DATE: 07/11/2019 DISCHARGING DIAGNOSES: 1. Altered mental status due to delirium from possible urinary tract infection. 2. Complicated diabetes with neuropathy. 3. Chronic systolic heart failure with ejection fraction 30% due to ischemic cardiomyopathy, status post AICD. 4. Paroxysmal atrial fibrillation. 5. Sleep apnea. 6. Acid reflux disease. 7. Peripheral artery disease in both legs, status post aortobifemoral graft, status post left leg thrombectomy with bypass graft by Dr. Garza. BRIEF HISTORY: Please see the H and P that was done by Dr. Jacobs. In brief, he is a 64-year- old white gentleman probably grossly deconditioning with underlying medical problems, mostly bedridden, not able to take care of his activities of daily living. He was readmitted several times during the past few months with altered mental status. He was under hospice care . 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 The patient was given IV Zosyn, and further workup did not find any evidence of infection. The patient came back to baseline. I had a long discussion with the patient and . They want to go for rehab. They want to go back with palliative care with hospice, living will, Do Not Resuscitate. LABORATORY: CBC: White cell count 8.5, hematocrit 36.5, and platelets 290,000. Sodium 137, potassium 3.7, chloride 102, BUN 18, creatinine 1.1 glucose 126, and magnesium 2.1. LFTs were normal. Urine cultures and blood cultures were negative. DISCHARGE INSTRUCTIONS: 1. Living will DNR. Care of the skin, bladder, and bowels. 2. Aspirin 81 mg daily. 3. Protonix 40 daily. 4. Synthroid 75 mcg daily. 5. Cordarone 200 daily. 6. Nitroglycerin as needed. 7. Lipitor 80 daily. 8. Crestor 24 1 tablet p.o. b.i.d. 9. Januvia 50 mg daily. 10. Isosorbide 30 mg daily. 11. Bumex 1 mg daily. 12. Reglan 5 mg 4 times daily. 13. Eliquis 2.5 p.o. b.i.d. 14. Tresiba 20 units at bedtime. 15. Living will DNR. 16. Outpatient palliative care consult with hospice. Family is agreeable. 17. The patient was discharged by ambulance since he can't walk. cc: MD Dr. Greg Mohamud
== END 2019-07-11 11:49 | disposition hospice, home (50) | DRG 948 ==
LOC: ED 16:10 → 3N 20:26
PROVIDERS: ADMIT Internal Medicine; ATTEND Internal Medicine